=== PATIENT | female | born 1965 | race Caucasian/White ===

== ENCOUNTER 2018-10-18 13:23 | Outpatient (REF) | payer MEDICARE, MEDICAID, SELFPAY ==
[2018-10-18 20:55] LABS: ALT 35 U/L (12-78); AST 13 U/L (15-37); Albumin 3.7 g/dL (3.4-5.0); Alkaline Phosphatase 86 U/L (46-116); Anion Gap 10.2 mmol/L (3-11); BUN 8 mg/dL (7-18); Bilirubin, Total 0.2 mg/dL (0.2-1.0); CO2 26.8 mmol/L (21.0-32.0); CREATININE 0.74 mg/dL (0.55-1.02); Calcium 9.2 mg/dL (8.5-10.1); Chloride 104 mmol/L (98-107); Cholesterol 161 mg/dL (50-200); Glucose 85 mg/dL (70-100); HDL Cholesterol 61 mg/dL (40-60); LDL CHOLESTEROL 85 mg/dL (<100); Potassium 4.2 mmol/L (3.5-5.1); Sodium 141 mmol/L (136-145); TSH (W/Ref FT4) 1.61 uIU/mL (0.358-3.74); Total Protein 7.2 g/dL (6.4-8.2); Triglyceride 69 mg/dL (30-150)
== END 2018-10-18 13:43 ==
LOC: NCHCN 13:23
PROVIDERS: PCP Nurse Practitioner; Visit Provider Nurse Practitioner
DX: R53.83 Other fatigue (principal); R63.5 Abnormal weight gain; F32.9 Major depressive disorder, single episode, unspecified; E66.9 Obesity, unspecified; Z85.3 Personal history of malignant neoplasm of breast
CPT/HCPCS: 80053; 80061; 83721; 84443

== ENCOUNTER 2018-11-18 15:59 | Outpatient (CLI) | payer MEDICARE, MEDICAID, SELFPAY ==
--- NOTE | 2018-11-18 15:50 | DI.RAD_ITS ---
SYMPTOM/DIAGNOSIS: COUGH, DYSPNEA, R05,R06.00 PA AND LATERAL CHEST: Comparison is made with 05/29/15. The heart size is normal. Emphysematous changes are noted, greater in the upper lobes. There is mild bibasilar scarring. No superimposed infiltrate, effusion or pneumothorax is seen. IMPRESSION: Severe emphysematous changes. No acute abnormality.
[2018-11-18 16:24] LABS: D-Dimer 329 ng/mlFEU (<500)
== END 2018-11-18 16:19 ==
PROVIDERS: PCP Nurse Practitioner; Visit Provider Nurse Practitioner
DX: R05 Cough (principal); R06.00 Dyspnea, unspecified; J43.9 Emphysema, unspecified
CPT/HCPCS: 36415; 71046; 85379

== ENCOUNTER 2020-10-13 19:12 | Outpatient (REF) | payer MEDICARE, MEDICAID, SELFPAY ==
[2020-10-15 15:34] LABS: COVID-19 RT-PCR UVMMC Result Negative (Negative)
== END 2020-10-13 19:13 | disposition home or self-care (01) ==
LOC: NCHCN 19:12
PROVIDERS: PCP Nurse Practitioner; Visit Provider Nurse Practitioner Family
DX: J34.89 Other specified disorders of nose and nasal sinuses (principal)
CPT/HCPCS: U0003; U0005

== ENCOUNTER 2021-03-25 16:00 | Outpatient (REF) | payer OTHER, MEDICAID, SELFPAY ==
[2021-03-27 14:56] LABS: COVID-19 RT-PCR UVMMC Result Negative (Negative)
== END 2021-03-25 16:01 | disposition home or self-care (01) ==
LOC: NCHCN 16:00
PROVIDERS: PCP Nurse Practitioner; Visit Provider Nurse Practitioner Family
DX: Z20.822 Contact with and (suspected) exposure to COVID-19 (principal); R05 Cough
CPT/HCPCS: U0003

== ENCOUNTER 2021-05-02 01:23 | Outpatient (CLI) | payer OTHER, MEDICAID, SELFPAY | END 2021-05-02 01:24 | disposition home or self-care (01) | LOC: RT 01:23 | PROVIDERS: PCP Nurse Practitioner; Visit Provider Nurse Practitioner Family | DX: R69 Illness, unspecified (principal) ==

== ENCOUNTER 2023-03-08 17:21 | Outpatient (REF) | payer OTHER, MEDICAID, SELFPAY ==
[2023-03-13 03:28] LABS: Methylphenidate Negative ng/mL (Cutoff: 10); Ritalinic Acid 1593 ng/mL (Cutoff: 50)
[2023-03-14 03:02] LABS: 2-OH-Ethyl-Flurazepam Negative ng/mL (Cutoff: 10); 7-NH-Clonazepam 1537 ng/mL (Cutoff: 10); 7-NH-Flunitrazepam Negative ng/mL (Cutoff: 10); Alpha OH-Alprazolam Negative ng/mL (Cutoff: 10); Alpha-OH Midazolam Negative ng/mL (Cutoff: 10); Alpha-OH-Triazolam Negative ng/mL (Cutoff: 10); Alprazolam Negative ng/mL (Cutoff: 10); Benzodiazepines Interpretation Positive.; Chlordiazepoxide Negative ng/mL (Cutoff: 10); Clobazam Negative ng/mL (Cutoff: 10); Clonazepam 27 ng/mL (Cutoff: 10); Diazepam Negative ng/mL (Cutoff: 10); Flurazepam Negative ng/mL (Cutoff: 10); Lorazepam Negative ng/mL (Cutoff: 10); Midazolam Negative ng/mL (Cutoff: 10); N-Desmethylclobazam Negative ng/mL (Cutoff: 10); Prazepam Negative ng/mL (Cutoff: 10); Temazepam Negative ng/mL (Cutoff: 10); Triazolam Negative ng/mL (Cutoff: 10); Zolpidem Carboxylic acid Negative ng/mL (Cutoff: 10)
[2023-03-14 11:17] LABS: Benzoylecgonine 3536 ng/mL (Cutoff: 50); Cocaine 270 ng/mL (Cutoff: 50); Cocaine Interpretation Positive.
== END 2023-03-08 17:22 | disposition home or self-care (01) ==
LOC: NCHCN 17:21
PROVIDERS: PCP Nurse Practitioner; Visit Provider Nurse Practitioner Family
DX: Z51.81 Encounter for therapeutic drug level monitoring (principal); F41.8 Other specified anxiety disorders; F90.9 Attention-deficit hyperactivity disorder, unspecified type
CPT/HCPCS: 80360; 80346; 80353

== ENCOUNTER 2023-09-06 12:03 | Emergency (ER) | payer MEDICAID, SELFPAY ==
--- OUTSIDE RECORDS SUMMARY | 2023-09-06 12:09 | XMS_ITS | Continuity of Care Document ---
Author Name Unknown Organization [facility] Address [address] [place] [id number] Care Team Providers Care Strategic Partnership Representative Name Role Phone Physician, Non-Staff [facility] Primary Care Physici an Unavailable Encounter [facility] [id number] Date(s): 06/15/23 - 06/15/23 [facility] [address] [place] [phone] Encounter Diagnosis CAP (community acquired pneumonia)(Discharge Diagnosis) - 06/15/23 Discharge Disposition: Home Attending Physician: Parth Stone PA-C, HILLARY Admitting Physician: Parth Stone PA-C, HILLARY Allergies, Adverse Reactions, Alerts No Known Allergies Assessment and Plan Extracted from: Title:Throat Pain *ED Author:Parth Stone PA-C, HILLARY Date:06/15/23 History of Present Illness Patient presents to the walk-in clinic with complaint of sore throat and cough x2 weeks. Patient states she was treated in the emergency department 1 week ago for COPD exacerbation. She states she was given prescription for doxycycline and prednisone. She states that she does not feel any better at this time. She states that she has run out of albuterol MDI. She denies fever, chills, N/V/D, abdominal pain, chest pain, dyspnea, weakness, dizziness or syncope. Review of Systems Constitutional symptoms: No fever, no chills, no weakness. Skin symptoms: No rash, Eye symptoms: Vision unchanged. ENMT symptoms: No ear pain, no sore throat, no nasal congestion, no sinus pain. Respiratory symptoms: Shortness of breath, cough, No wheezing, , Sputum production: Yellow. Cardiovascular symptoms: No chest pain, no syncope. Gastrointestinal symptoms: No abdominal pain, no nausea, no vomiting, no diarrhea. Genitourinary symptoms: No dysuria, no hematuria. Musculoskeletal symptoms: No back pain, Neurologic symptoms: No headache, no dizziness, no altered level of consciousness, no numbness, no tingling, no weakness. Hematologic/Lymphatic symptoms: Bleeding tendency negative, bruising tendency negative. Health Status Allergies: Allergic Reactions (All) No Known Allergies. Medications: (Selected) Prescriptions Prescribed doxycycline hyclate 100 mg oral capsule: 100 mg = 1 cap(s), Oral, BID, for 10 day(s), 20 cap(s), 0 Refill(s) predniSONE 20 mg oral tablet: See Instructions, 2 tab(s) Oral Daily 7 day(s), then 1 tab q D x 7 days, 21 tab(s), 0 Refill(s) Documented Medications Documented Advair Diskus 250 mcg-50 mcg inhalation powder: 0 Refill(s) Combivent Respimat: 0 Refill(s) Singulair: 0 Refill(s) Ventolin: 0 Refill(s) albuterol 0.5% inhalation solution: 0 Refill(s) budesonide: 0 Refill(s) omeprazole: 0 Refill(s). Past Medical/ Family/ Social History Medical history: No active or resolved past medical history items have been selected or recorded.. Surgical history: No active procedure history items have been selected or recorded.. Family history: No family history items have been selected or recorded.. Social history: Social & Psychosocial History Social History Tobacco Current everyday tobacco user Tobacco Use:. 1+ pack per day. Electronic Cigarette/Vaping Electronic Cigarette Use: Never. Psychosocial History No active psychosocial history has been recorded . Problem list: Active Problems (1) Tobacco user . Physical Examination Vital Signs Vital Signs 06/15/2023 11:13 EDT Peripheral Pulse Rate 89 bpm Systolic Blood Pressure 172 mmHg HI Diastolic Blood Pressure 98 mmHg HI Mean Arterial Pressure, Cuff 123 mmHg >HHI SpO2 97 % . General: Alert, no acute distress. Skin: Warm, dry, pink. Head: Normocephalic, atraumatic. Neck: Supple, trachea midline, no tenderness. Eye: Pupils are equal, round and reactive to light, normal conjunctiva. Ears, nose, mouth and throat: Tympanic membranes clear, oral mucosa moist, no pharyngeal erythema or exudate. Cardiovascular: Regular rate and rhythm. Respiratory: Lungs are clear to auscultation, respirations are non-labored, breath sounds are equal, Symmetrical chest wall expansion. Gastrointestinal: Soft, Nontender, Non distended, Normal bowel sounds. Back: Normal range of motion. Musculoskeletal: Normal ROM. Neurological: Alert and oriented to person, place, time, and situation. Lymphatics: No lymphadenopathy. Psychiatric: Cooperative, appropriate mood & affect. Medical Decision Making Differential Diagnosis: Viral syndrome, upper respiratory infection. Rationale: Patient is nontoxic-appearing and in no apparent distress. She presented to the clinic with 1 week history of productive cough and sore throat. Patient was evaluated in the emergency department 1 week ago and treated for COPD exacerbation. Patient states that symptoms have not improved. Upon arrival, she is well- appearing and afebrile. She is oxygenating well on room air with no increased work of breathing. Lungs are CTA bilaterally. Patient has radiographic evidence of right lower lobe pneumonia. I have given her prescription for Augmentin, prednisone and albuterol MDI. I have advised patient to increase p.o. fluids and rest. Have discussed return precautions with patient. Patient will follow-up with her PCP and return to the clinic as needed if symptoms worsen.. Radiology results: Impression and Plan Plan Condition: Stable. Disposition: Discharged: Time 06/15/2023 12:24:00, to home. Prescriptions: Launch prescriptions Pharmacy: predniSONE 20 mg oral tablet (Prescribe): 40 mg = 2 tab(s), Oral, Daily, for 5 day(s), 10 tab(s), 0 Refill(s) amoxicillin-clavulanate 875 mg-125 mg oral tablet (Prescribe): 1 tab(s), Oral, q12hr, for 7 day(s), 14 tab(s), 0 Refill(s) ProAir HFA 90 mcg/inh inhalation aerosol (Prescribe): 2 puff(s), INH, q4hr, for 30 day(s), PRN: for wheezing, 8.5 gm, 0 Refill(s). Patient was given the following educational materials: Community-Acquired Pneumonia, Adult, Yzko-jj-Sios, Community-Acquired Pneumonia, Adult, Tlvx-us-Natw. Follow up with: Follow up with primary care provider You have been evaluated in the walk-in clinic for community-acquired pneumonia. We have given you prescription for Augmentin, prednisone and albuterol inhaler. Use as prescribed. Drink plenty of fluids and rest. Follow-up with your PCP. If your symptoms worsen, return to the clinic as needed.. Counseled: Patient, Regarding diagnosis, Regarding diagnostic results, Regarding treatment plan, Regarding prescription, Patient indicated understanding of instructions. Functional Status 06/15/23 Recent Travel History No recent travel Family Member Travel History No recent t nataliiael COVID-19 Screening None Medications Advair Diskus 250 mcg-50 mcg inhalation powder 0 Refill(s) Start Date: 06/08/23 Status: Ordered albuterol 0.5% inhalation solution 0 Refill(s) Start Date: 06/08/23 Status: Ordered amoxicillin-clavulanate 875 mg-125 mg oral tablet 1 tab(s), Oral, q12hr, # 14 tab(s), 0 Refill(s), Pharmacy: [id number], 1 tab(s) Oral q12hr,x7day(s), 170, cm, 06/15/23 11:13:00 EDT, Height/Length Dosing, 71.4, kg, 06/15/23 11:13:00 EDT, Weight Dosing Start Date: 06/15/23 Stop Date: 06/22/23 Status: Ordered budesonide 0 Refill(s) Start Date: 06/08/23 Status: Ordered Combivent Respimat 0 Refill(s) Start Date: 06/08/23 Status: Ordered doxycycline hyclate 100 mg oral capsule 100 mg = 1 cap(s), Oral, BID, X 10 day(s), # 20 cap(s), 0 Refill(s), 06/18/23 4:24:00 AM EDT, Pharmacy: [facility] #[id number], 1 cap(s) Oral BID,x10 day(s), 170, cm, 06/08/23 1:53:00 EDT, Height/Length Dosing, 71.4, kg, 06/08/23 1:53:00 EDT, Weight Dosing Start Date: 06/08/23 Stop Date: 06/18/23 Status: Ordered omeprazole 0 Refill(s) Start Date: 06/08/23 Status: Ordered predniSONE 20 mg oral tablet 40 mg = 2 tab(s), Oral, Daily, # 10 tab(s), 0 Refill(s), Pharmacy: [id number], 2 tab(s) Oral Daily,x5 day(s), 170, cm, 06/15/23 11:13:00 EDT, Height/Length Dosing, 71.4, kg, 06/15/23 11:13:00 EDT, Weight Dosing Start Date: 06/15/23 Stop Date: 06/20/23 Status: Ordered predniSONE 20 mg oral tablet See Instructions, 2 tab(s) Oral Daily 7 day(s), then 1 tab q D x 7 days, # 21 tab(s), 0 Refill(s), 06/22/23 12:00:00 AM EDT, Pharmacy: [facility] #[id number], 2 tab(s) Oral Daily 7 day(s), then 1 tab q D x 7 days, 170, cm, 06/08/23 1:53:00 EDT, Height/Length Dosing, 71.4, kg, 06/08/23 1:53:00 EDT, Weight Dosing Start Date: 06/08/23 Stop Date: 06/22/23 Status: Ordered ProAir HFA 90 mcg/inh inhalation aerosol = 2 puff(s), INH, q4hr, PRN PRN for wheezing, # 8.5 gm, 0 Refill(s), Pharmacy: [id number], 2 puff(s) INH q4hr,x30 day(s),PRN:for wheezing, 170, cm, 06/15/23 11:13:00 EDT, Height/Length Dosing, 71.4, kg, 06/15/23 11:13:00 EDT, Weight Dosing Start Date: 06/15/23 Stop Date: 07/15/23 Status: Ordered Singulair 0 Refill(s) Start Date: 06/08/23 Status: Ordered Ventolin 0 Refill(s) Start Date: 06/08/23 Status: Ordered Vital Signs Most recent to oldest [Reference Range]: 1 Peripheral Pulse Rate [60-100 bpm] 89 bp m (06/15/23 11:13 AM) Blood Pressure [90-140/60-90 mmHg] 172/9 8mmHg *HI* (06/15/23 11:13 AM) Mean Arterial Pressure, Cuff [70-110 mmH g] 123 mmHg *>HHI* (06/15/23 11:13 AM) SpO2 [92-100 %] 97 % (06/15/23:13 AM) Height 170 cm (06/15/2313 AM) Height/Length Measured (inches) 66.9 in (06/15/23:13 AM) Height/Length Dosing 170 cm (06/15/2313 AM) Weight 71.4 kg (06/15/2313 AM) Weight Measured (lbs) 157.41 lb (06/15/2313 AM) Weight Dosing 71.4 kg (06/15/23:13 AM) BSA Measured 1.84 m2 (06/15/23 AM) Body Mass Index 24.71 kg/m2 (06/15/2313 AM) Social History Social History Type Response Tobacco Current everyday tob acco user Tobacco Use:. 1+ pack per day. Sex Hospital Discharge Instructions Patient Education 06/15/2023 12:28:42 Community-Acquired Pneumonia, Adult, [id number]-op-Mvtc Community-Acquired Pneumonia, Adult Pneumonia is an infection of the lungs. It causes irritation and swelling in the airways of the lungs. Mucus and fluid may also build up inside the airways. This may cause coughing and trouble breathing. One type of pneumonia can happen while you are in a hospital. A different type can happen when you are not in a hospital (community-acquired pneumonia). What are the causes? This condition is caused by germs (viruses, bacteria, or fungi). Some types of germs can spread from person to person. Pneumonia is not thought to spread from person to person. What increases the risk? You have a long-term (chronic) disease, such as: ??? Disease of the lungs. This may be chronic obstructive pulmonary disease (COPD) or asthma. ??? Heart failure. ??? Cystic fibrosis. ??? Diabetes. ??? Kidney disease. ??? Sickle cell disease. ??? HIV. ??? You have other health problems, such as: ??? Your body's defense system (immune system) is weak. ??? A condition that may cause you to breathe in fluids from your mouth and nose. ??? You had your spleen taken out. ??? You do not take good care of your teeth and mouth (poor dental hygiene). ??? You use or have used tobacco products. ??? You go where the germs that cause this illness are common. ??? You are older than 65 years of age. What are the signs or symptoms? A cough. ??? A fever. ??? Sweating or chills. ??? Chest pain, often when you breathe deeply or cough. ??? Breathing problems, such as: ??? Fast breathing. ??? Trouble breathing. ??? Shortness of breath. ??? Feeling tired (fatigued). ??? Muscle aches. How is this treated? Treatment for this condition depends on many things, such as: ??? The cause of your illness. ??? Your medicines. ??? Your other health problems. Most adults can be treated at home. Sometimes, treatment must happen in a hospital. ??? Treatment may include medicines to kill germs. ??? Medicines may depend on which germ caused your illness. Very bad pneumonia is rare. If you get it, you may: ??? Have a machine to help you breathe. ??? Have fluid taken away from around your lungs. Follow these instructions at home: Medicines ??? Take qtum-wva-mtcrypk and prescription medicines only as told by your doctor. ??? Take cough medicine only if you are losing sleep. Cough medicine can keep your body from takingmucus away from your lungs. ??? If you were prescribed antibiotics, take them as told by your doctor. Do not stop taking them even if you start to feel better. Lifestyle ??? Do not smoke or use any products that contain nicotine or tobacco. If you need help quitting, ask your doctor. ??? Do not drink alcohol. ??? Eat a healthy diet. This includes a lot of vegetables, fruits, whole grains, low-fat dairy products, and low-fat (lean) protein. General instructions ??? Rest a lot. Sleep for at least 8 hours each night. ??? Sleep with your head and neck raised. Put a few pillows under your head or sleep in a recliningchair. ??? Return to your normal activities as told by your doctor. Ask your doctor what activities are safe for you. ??? Drink enough fluid to keep your pee (urine) pale yellow. ??? If your throat is sore, gargle with a mixture of salt and water 3???4 times a day or as needed.To make salt water, completely dissolve ?1 tsp (3???6 g) of salt in 1 cup (237 mL) of warm water. ??? Keep all follow-up visits. How is this prevented? Getting the pneumonia shot (vaccine). These shots have different types and schedules. Ask your doctor what works best for you. Think about getting this shot if: ??? You are older than 65 years of age. ??? You are 19???65 years of age and: ??? You are being treated for cancer. ??? You have long-term lung disease. ??? You have other problems that affect your body's defense system. Ask your doctor if you have oneof these. ??? Getting your flu shot every year. Ask your doctor which type of shot is best for you. ??? Going to the dentist as often as told. ??? Washing your hands often with soap and water for at least 20 seconds. If you cannot use soap and water, use hand line maintenance supervisor. Contact a doctor if: ??? You have a fever. ??? You lose sleep because your cough medicine does not help. Get help right away if: ??? You are short of breath and this gets worse. ??? You have more chest pain. ??? Your sickness gets worse. This is very serious if: ??? You are an older adult. ??? Your body's defense system is weak. ??? You cough up blood. These symptoms may be an emergency. Get help right away. Call 911. ??? Do not wait to see if the symptoms will go away. ??? Do not drive yourself to the hospital. Summary ??? Pneumonia is an infection of the lungs. ??? Community-acquired pneumonia affects people who have not been in the hospital. Certain germs can cause this infection. ??? This condition may be treated with medicines that kill germs. ??? For very bad pneumonia, you may need a hospital stay and treatment to help with breathing. This information is not intended to replace advice given to you by your health care provider. Make sure you discuss any questions you have with your health care provider. Document Revised: 10/11/2022 Document Reviewed: 10/11/2022 [employer] Patient Education ?? 2022 [employer]. Follow Up Care 06/15/2023 11:02:54 With:Follow up with primary care provider Address:Unknown When: Unknown Comments:You have been evaluated in the walk-in clinic for community-acquired pneumonia. We have given you prescription for Augmentin, prednisone and albuterol inhaler. Use as prescribed. Drink plenty of fluids and rest. Follow-up with your PCP. If your symptoms worsen, return to the clinic as needed. Primary care Note * Parth Stone PA-C, ANGELA-EM: MODIFY, SIGN, VERIFY, PERFORM, MODIFY Event Display: Office/Clinic Note Authored Date: Patient: JUSTINO ZABALA Age: 58 years Sex: Female : 1965 Associated Diagnoses: None Author: Parth Stone PA-C, ANGELA-EM Basic Information Time seen: Time Seen (Tracking) No qualifying data available. . History source: Patient. Arrival mode: Private vehicle. History limitation: None. Additional information: Chief Complaint from Nursing Triage Note 06/15/2023 11:13 EDT Chief Complaint troubles swollowing . History of Present Illness Patient presents to the walk-in clinic with complaint of sore throat and cough x2 weeks. Patient states she was treated in the emergency department 1 week ago for COPD exacerbation. She states she was given prescription for doxycycline and prednisone. She states that she does not feel any better atthis time. She states that she has run out of albuterol MDI. She denies fever, chills, N/V/D, abdomi nal pain, chest pain, dyspnea, weakness, dizziness or syncope. Review of Systems Constitutional symptoms: No fever, no chills, no weakness. Skin symptoms: No rash, Eye symptoms: Vision unchanged. ENMT symptoms: No ear pain, no sore throat, no nasal congestion, no sinus pain. Respiratory symptoms: Shortness of breath, cough, No wheezing, , Sputum production: Yellow. Cardiovascular symptoms: No chest pain, no syncope. Gastrointestinal symptoms: No abdominal pain, no nausea, no vomiting, no diarrhea. Genitourinary symptoms: No dysuria, no hematuria. Musculoskeletal symptoms: No back pain, Neurologic symptoms: No headache, no dizziness, no altered level of consciousness, no numbness, no tingling, no weakness. Hematologic/Lymphatic symptoms: Bleeding tendency negative, bruising tendency negative. Health Status Allergies: Allergic Reactions (All) No Known Allergies. Medications: (Selected) Prescriptions Prescribed doxycycline hyclate 100 mg oral capsule: 100 mg = 1 cap(s), Oral, BID, for 10 day(s), 20 cap(s), 0 Refill(s) predniSONE 20 mg oral tablet: See Instructions, 2 tab(s) Oral Daily 7 day(s), then 1 tab q D x 7 days, 21 tab(s), 0 Refill(s) Documented Medications Documented Advair Diskus 250 mcg-50 mcg inhalation powder: 0 Refill(s) Combivent Respimat: 0 Refill(s) Singulair: 0 Refill(s) Ventolin: 0 Refill(s) albuterol 0.5% inhalation solution: 0 Refill(s) budesonide: 0 Refill(s) omeprazole: 0 Refill(s). Past Medical/ Family/ Social History Medical history: No active or resolved past medical history items have been selected or recorded.. Surgical history: No active procedure history items have been selected or recorded.. Family history: No family history items have been selected or recorded.. Social history: Social & Psychosocial History Social History Tobacco Current everyday tobacco user Tobacco Use:. 1+ pack per day. Electronic Cigarette/Vaping Electronic Cigarette Use: Never. Psychosocial History No active psychosocial history has been recorded . Problem list: Active Problems (1) Tobacco user . Physical Examination Vital Signs Vital Signs 06/15/2023 11:13 EDT Peripheral Pulse Rate 89 bpm Systolic Blood Pressure 172 mmHg HI Diastolic Blood Pressure 98 mmHg HI Mean Arterial Pressure, Cuff 123 mmHg >HHI SpO2 97 % . General: Alert, no acute distress. Skin: Warm, dry, pink. Head: Normocephalic, atraumatic. Neck: Supple, trachea midline, no tenderness. Eye: Pupils are equal, round and reactive to light, normal conjunctiva. Ears, nose, mouth and throat: Tympanic membranes clear, oral mucosa moist, no pharyngeal erythema or exudate. Cardiovascular: Regular rate and rhythm. Respiratory: Lungs are clear to auscultation, respirations are non-labored, breath sounds are equal, Symmetrical chest wall expansion. Gastrointestinal: Soft, Nontender, Non distended, Normal bowel sounds. Back: Normal range of motion. Musculoskeletal: Normal ROM. Neurological: Alert and oriented to person, place, time, and situation. Lymphatics: No lymphadenopathy. Psychiatric: Cooperative, appropriate mood & affect. Medical Decision Making Differential Diagnosis: Viral syndrome, upper respiratory infection. Rationale: Patient is nontoxic-appearing and in no apparent distress. She presented to the clinic with 1 week history of productive cough and sore throat. Patient was evaluated in the emergency department 1 week ago and treated for COPD exacerbation. Patient states that symptoms have not improved. Upon arrival, she is well-appearing and afebrile. She is oxygenating well on room air with no increased work of breathing. Lungs are CTA bilaterally. Patient has radiographic evidence of right lower lobe pneumonia. I have given her prescription for Augmentin, prednisone and albuterol MDI. I have advised patient to increase p.o. fluids and rest. Have discussed return precautions with patient. Patient will follow-up with her PCP and return to the clinic as needed if symptoms worsen.. Radiology results: Impression and Plan Plan Condition: Stable. Disposition: Discharged: Time 06/15/2023 12:24:00, to home. Prescriptions: Launch prescriptions Pharmacy: predniSONE 20 mg oral tablet (Prescribe): 40 mg = 2 tab(s), Oral, Daily, for 5 day(s), 10 tab(s), 0Refill(s) amoxicillin-clavulanate 875 mg-125 mg oral tablet (Prescribe): 1 tab(s), Oral, q12hr, for 7 day(s),14 tab(s), 0 Refill(s) ProAir HFA 90 mcg/inh inhalation aerosol (Prescribe): 2 puff(s), INH, q4hr, for 30 day(s), PRN: forwheezing, 8.5 gm, 0 Refill(s). Patient was given the following educational materials: Community-Acquired Pneumonia, Adult, Zrlg-kr-Uqae, Community-Acquired Pneumonia, Adult, Xkju-at-Eqmo. Follow up with: Follow up with primary care provider You have been evaluated in the walk-in clinic for community-acquired pneumonia. We have given you prescription for Augmentin, prednisone and albuterol inhaler. Use as prescribed. Drink plenty of fluids and rest. Follow-up with your PCP. If your symptoms worsen, return to the clinic as needed.. Counseled: Patient, Regarding diagnosis, Regarding diagnostic results, Regarding treatment plan, Regarding prescription, Patient indicated understanding of instructions. [Electronically Signed on: 06/15/2023 12:30 EDT] Parth Stone PA-C, ANGELA-MYNOR Clint Hector MD, FACEP [Verified on: 06/15/2023 12:30 EDT] Parth Stone PA-C, CAGustavo-EM Patient Care team information Care Team Personnel Name: Physician, Non-Staff [facility] Position: [facility] No Access Member Role: Informed Provider Care Team Related Persons Name: MATILDA VEGA Name: CLINT HUTCHINSON
--- OUTSIDE RECORDS SUMMARY | 2023-09-06 12:09 | XMS_ITS | Continuity of Care Document ---
Author Name Unknown Organization [facility] Address [address] [place] [address] Encounter LTTL_AR FIN NBR [id number] Date(s): 06/21/23 - 06/21/23 [facility] [address] [place] [address]- Encounter Diagnosis Abdominal pain(Discharge Diagnosis) - 06/21/23 Right upper quadrant pain(Final) - Nicotine dependence, other tobacco product, uncomplicated(Final) - Discharge Disposition: Home or Self Care Attending Physician: Owen Narayan MD Admitting Physician: Owen Narayan MD Allergies, Adverse Reactions, Alerts Substance Reaction Severity Status aspirin Mild Active Medications Advair HFA 230 mcg-21 mcg/inh inhalation aerosol 0 Refill(s) Start Date: 06/17/23 Status: Ordered amoxicillin-clavulanate 875 mg-125 mg oral tablet 0 Refill(s) Start Date: 06/17/23 Status: Ordered benzonatate 100 mg oral capsule TAKE 1-2 CAPSULES BY MOUTH THREE TIMES A DAY NEEDED FOR COUGH Start Date: 06/17/23 Status: Ordered Combivent Respimat CFC free 20 mcg-100 mcg/inh inhalation aerosol INHALE ONE PUFF BY MOUTH FOUR TIMES A DAY Start Date: 06/17/23 Status: Ordered doxycycline hyclate 100 mg oral capsule take 1 capsule by mouth twice a day for 10 days Start Date: 06/17/23 Status: Ordered methylphenidate 10 mg oral tablet TAKE ONE AND ONE-HALF TABLETS BY MOUTH THREE TIMES A DAY Start Date: 06/17/23 Status: Ordered montelukast 10 mg oral tablet TAKE ONE TABLET BY MOUTH EVERY DAY Start Date: 06/17/23 Status: Ordered omeprazole 40 mg oral delayed release capsule TAKE ONE CAPSULE BY MOUTH EVERY DAY Start Date: 06/17/23 Status: Ordered predniSONE 20 mg oral tablet 0 Refill(s) Start Date: 06/17/23 Status: Ordered sucralfate 1 g/10 mL oral suspension SHAKE LIQUID AND TAKE 10ML BY MOUTH FOUR TIMES A DAY 1 HOUR BEFORE MEALS AND AT BEDTIME Start Date: 06/17/23 Status: Ordered Ventolin HFA 90 mcg/inh inhalation aerosol INHALE ONE TO TWO PUFFS BY MOUTH EVERY 4 HOURS NEEDED FOR SHORTNESS OF BREATH OR WHEEZING Start Date: 06/17/23 Status: Ordered Mental Status 06/21/23 Eye Opening Response Burns Spontaneous ly Best Verbal Response Burns Oriented Best Motor Response Burns Obeys comman ds Burns Coma Score 15 Results Laboratory List Name Date Automated Diff 06/21/23 Alcohol Lvl 06/21/23 CBC w/ Diff 06/21/23 Comprehensive Metabolic Panel 06/21/23 Lipase Level 06/21/23 Magnesium Level 06/21/23 Urinalysis with Micro if Indicated and C ulture if Indicated 06/21/23 Most recent to oldest [Reference Range]: 1 WBC [4.8-10.8 K/mcL] 10.5 K/mcL (06/21/23 10:57 AM) RBC [4.20-5.40 Million/mcL] 4.91 Million /mcL (06/21/23 10:57 AM) Neutro Auto [42.2-75.2 %] 85.3 % *HI* (06/21/23 10:57 AM) Lymph Auto [20.5-51.1 %] 9.4 % *LOW* (06/21/23 10:57 AM) [place] Auto [1.7-9.3 %] 2.1 % (06/21/23 10:57 AM) Basophil Auto [0.0-0.8 %] 0.9 % *HI* (06/21/23 10:57 AM) BUN [8-26 mg/dL] 23 mg/dL (06/21/23 10:57 AM) UA Color LIGHT YELL *NA* (06/21/23 10:54 AM) Glucose Level [74-106 mg/dL] 116 mg/dL *HI* (06/21/23 10:57 AM) Potassium Level [3.5-5.1 mmol/L] 4.0 mmo l/L (06/21/23 10:57 AM) Baso Absolute [0.0-0.2 K/mcL] 0.1 K/mcL (06/21/23 10:57 AM) MCV [81.0-99.0 fL] 90.6 fL (06/21/23 10:57 AM) UA Urobilinogen [0.2] 0.2 (06/21/23 10:54 AM) UA Bili [Negative] Negative (06/21/23 10:54 AM) UA Ketones [Negative] Negative (06/21/23 10:54 AM) AST [15-41 IntlUnit/L] 16 IntlUnit/L (06/21/23 10:57 AM) ALT [14-54 IntlUnit/L] 19 IntlUnit/L (06/21/23 10:57 AM) MCHC [32.0-37.0 g/dL] 31.5 g/dL *LOW* (06/21/23 10:57 AM) Osmolality [275-295 mOsm/kg] 284 mOsm/kg (06/21/23 10:57 AM) Sodium Level [134-143 mmol/L] 140 mmol/L (06/21/23 10:57 AM) UA Leuk Est [Negative] Negative (06/21/23 10:54 AM) Lymph Absolute [1.2-3.4 K/mcL] 1.0 K/mcL *LOW* (06/21/23 10:57 AM) UA Nitrite [Negative] Negative (06/21/23 10:54 AM) UA Glucose [Negative] Negative (06/21/23 10:54 AM) Hct [37.0-47.0 %] 44.5 % (06/21/23 10:57 AM) Lipase Level [18-51 unit/L] 31 unit/L 1 (06/21/23 10:57 AM) Calcium Level [8.9-10.3 mg/dL] 9.3 mg/dL (06/21/23 10:57 AM) [place] Absolute [0.1-0.6 K/mcL] 0.2 K/mcL (06/21/23 10:57 AM) Albumin Level [3.5-5.0 g/dL] 4.1 g/dL (06/21/23 10:57 AM) Protein Total [6.5-8.1 g/dL] 7.2 g/dL (06/21/23 10:57 AM) UA Protein [Negative] Negative (06/21/23 10:54 AM) MCH [27.0-31.0 pg] 28.5 pg (06/21/23 10:57 AM) Magnesium Level [1.8-2.5 mg/dL] 2.2 mg/d L (06/21/23 10:57 AM) Neutro Absolute [1.4-6.5 K/mcL] 9.0 K/mc L *HI* (06/21/23 10:57 AM) Bilirubin Total [0.2-1.2 mg/dL] 0.7 mg/d L (06/21/23 10:57 AM) Hgb [12.0-16.0 g/dL] 14.0 g/dL (06/21/23 10:57 AM) Alk Phos [38-130 IntlUnit/L] 54 IntlUnit /L (06/21/23 10:57 AM) UA Blood [Negative] Negative (06/21/23 10:54 AM) MPV [7.4-10.4 fL] 10.7 fL *HI* (06/21/23 10:57 AM) Ethanol Level [0.00-0.08 g/dL] See comme nt g/dL 2 *NA* (06/21/23 10:57 AM) UA Spec Grav [1.001-1.030] <=1.005 *NA* (06/21/23 10:54 AM) Platelets [130-400 K/mcL] 254 K/mcL (06/21/23 10:57 AM) CO2 [22-32 mmol/L] 25 mmol/L (06/21/23 10:57 AM) Eos Absolute [0.0-0.2 K/mcL] 0.2 K/mcL (06/21/23 10:57 AM) UA pH [5.00-9.00] 5.50 (06/21/23 10:54 AM) UA Appear [Clear] Clear (06/21/23 10:54 AM) Chloride Level [98-111 mmol/L] 104 mmol/ L (06/21/23 10:57 AM) RDW-CV [11.5-14.5 %] 13.9 % (06/21/23 10:57 AM) A/G Ratio [1.0-2.5 g/dL] 1.3 g/dL (06/21/23 10:57 AM) BUN/Creat Ratio [8.0-20.0] 34.8 *HI* (06/21/23 10:57 AM) Globulin [2.3-3.5 g/dL] 3.1 g/dL (06/21/23 10:57 AM) Imm Gran Absolute [0.00-0.02 K/mcL] 0.04 K/mcL *HI* (06/21/23 10:57 AM) Imm Gran Auto [0.0-0.5 %] 0.4 % (06/21/23 10:57 AM) Slide Review Not Indicated (06/21/23 10:57 AM) Urine Srce Clean Catch (06/21/23 10:54 AM) Creatinine Level [0.44-1.00 mg/dL] 0.66 mg/dL (06/21/23 10:57 AM) Anion Gap [3.0-12.0] 11.0 (06/21/23 10:57 AM) Eos, Auto [0.00-3.00 %] 1.90 % (06/21/23 10:57 AM) Instr Ethanol Lvl [<=5 mg/dL] <5 mg/dL (06/21/23 10:57 AM) eGFR CKD-EPI [>=60 mL/min/1.73 m2] 102 m L/min/1.73 m2 (06/21/23 10:57 AM) 1Interpretive Data: K-zillys-b-benzoquinone imine (meabolite of Acetaminophen) will generate erroneously low lipase results in samples for patients that have taken toxic doses of acetaminophen. 2Result Comment: Unable to report ethanol level due to measured ethanol being BELOW instrument linearity. Radiology Reports * Exam Date Time Procedure Performing Provider Status 06/21/23 12:34 PM US Abdomen Limited DomainUser, Gener ated; Auth (Verified) Notes: (US Abdomen Limited) Reason For Exam: Abdominal pain, right upper quadrant US Abdomen Limited EXAM DESCRIPTION: US Abdomen Limited 06/21/2023 INDICATION: ABDOMINAL PAIN, RIGHT UPPER QUADRANT TECHNIQUE: Grayscale and color Doppler ultrasound examination of the right upper quadrant region of the abdomen. COMPARISON: None FINDINGS: Liver measures 16.6 cm in maximum dimension. Normal homogeneous hepatic echotexture with no focal hepatic lesion identified. No hepatic surface nodularity or findings to suggest hepatic steatosis. The main portal vein is patent with normal flow direction. No ascites in right upper quadrant Pancreas appears unremarkable No cholelithiasis, gallbladder wall thickening or pericholecystic fluid accumulation. No biliary dilatation with common bile duct diameter of 5 mm. Positive sonographic Karimi sign Right kidney measures 13.1 cm in maximum dimension. No focal right renal mass, hydronephrosis or perinephric fluid collection. IMPRESSION: No cholelithiasis or biliary dilatation Positive sonographic Karimi sign JOB #: [id number] Final Signed by: Cecil Patel MD Signed (Electronic Signature): 06/21/2023 12:41 pm Vital Signs Most recent to oldest [Reference Range]: 1 2 Temperature Temporal Artery [36-38 Deg C ] 36.2 Deg C (06/21/23 10:41 AM) Peripheral Pulse Rate [60-100 bpm] 95 bp m (06/21/23 12:54 PM) 93 bpm (06/21/23 10:41 AM) Respiratory Rate [12-24 br/min] 16 br/mi n (06/21/23 10:41 AM) Blood Pressure [90-140/60-90 mmHg] 140/8 1mmHg (06/21/23 12:54 PM) 164/98mmHg *HI* (06/21/23 10:41 AM) Mean Arterial Pressure, Cuff [65-140 mmHg] 101 mmHg (06/21/23 12:54 PM) 120 mmHg (06/21/23 10:41 AM) Mean Arterial Pressure Cuff 99 mmHg (06/21/23 12:54 PM) Weight Dosing 64.00 kg (06/21/23 11:02 AM) Weight Estimated 64.00 kg (06/21/23 10:41 AM) Height/Length Dosing 170.000 cm (06/21/23 11:02 AM) Height/Length Estimated 170.000 cm (06/21/23 10:41 AM) Social History Social History Type Response Tobacco Current everyday tob acco user Tobacco Use:. Sex Hospital Discharge Instructions Patient Education 06/21/2023 12:31:10 Abdominal Pain, Adult Abdominal Pain, Adult Pain in the abdomen (abdominal pain) can be caused by many things. Often, abdominal pain is not serious and it gets better with no treatment or by being treated at home. However, sometimes abdominal pain is serious. Your health care provider will ask questions about your medical history and do a physical exam to try to determine the cause of your abdominal pain. Follow these instructions at home: Medicines ??? Take [id number] and prescription medicines only as told by your health care provider. ??? Do not take a laxative unless told by your health care provider. General instructions ??? Watch your condition for any changes. ??? Drink enough fluid to keep your urine pale yellow. ??? Keep all follow-up visits as told by your health care provider. This is important. Contact a health care provider if: ??? Your abdominal pain changes or gets worse. ??? You are not hungry or you lose weight without trying. ??? You are constipated or have diarrhea for more than 2???3 days. ??? You have pain when you urinate or have a bowel movement. ??? Your abdominal pain wakes you up at night. ??? Your pain gets worse with meals, after eating, or with certain foods. ??? You are vomiting and cannot keep anything down. ??? You have a fever. ??? You have blood in your urine. Get help right away if: ??? Your pain does not go away as soon as your health care provider told you to expect. ??? You cannot stop vomiting. ??? Your pain is only in areas of the abdomen, such as the right side or the left lower portion of the abdomen. Pain on the right side could be caused by appendicitis. ??? You have bloody or black stools, or stools that look like tar. ??? You have severe pain, cramping, or bloating in your abdomen. ??? You have signs of dehydration, such as: ??? Dark urine, very little urine, or no urine. ??? Cracked lips. ??? Dry mouth. ??? Sunken eyes. ??? Sleepiness. ??? Weakness. ??? You have trouble breathing or chest pain. Summary ??? Often, abdominal pain is not serious and it gets better with no treatment or by being treated at home. However, sometimes abdominal pain is serious. ??? Watch your condition for any changes. ??? Take ufpu-[id number] and prescription medicines only as told by your health care provider. ??? Contact a health care provider if your abdominal pain changes or gets worse. ??? Get help right away if you have severe pain, cramping, or bloating in your abdomen. This information is not intended to replace advice given to you by your health care provider. Make sure you discuss any questions you have with your health care provider. Document Revised: 10/01/2020 Document Reviewed: 12/22/2019 [employer] Patient Education ?? 2022 [employer]. Discharge instructions * Event Display: Discharge Instructions Physician Emergency department Note * Jessica Sapp, WASH DRILLER HELPER: PERFORM Event Display: ED Note Physician Authored Date: [id number] SAGRARIO JUSTINO R :1965 Age:58 years Sex:Female Visit Date:06/21/2023 Basic Information Time Seen: Jessica Sapp APRN / 06/21/2023 10:49 Chief Complaint Pt states she has had abd pain that moves around for about a month. Pt has hx of pneumonia dx 7 days ago. History Of Present Illness: Patient is a 58-year-old female who presents emergency department today with a chief complaint??of upper quadrant??abdominal pain. ??She reports that she has been evaluated??previously for similar symptoms, states that she has not??had any an improvement. ??She has been utilizing MiraLAX and stool s ofteners??without good effect of pain. ??She states??she has electively lost approximately 100 pounds over the last year??through diet modification.?? She recently has been on doxycycline and??Augmentin for pneumonia. ??She states that she has approximately 2 days left of these antibiotic courses. ??She reports that she continues to have mild cough, she is 1 pack a day smoker,??and??denies any worsening shortness of breath. ??She states that she has had 1 episode of vomiting over the last few days, states that her pain??initially is located in the right upper quadrant??and does migrate towards the left upper quadrant at times and into the back. Review of Systems: SEE HPI Physical Exam Vitals & Measurements T:??36.2?C ??(Temporal Artery)?? HR:??95??(Peripheral)?? RR:??16?? BP:??140/81?? SpO2:??92%?? HT:??170.000??cm?? WT:??64.00??kg??(Estimated)?? Pain Score:??7?? O2 Therapy:??Room air?? General: Well-appearing, no acute distress, alert and oriented x3. Skin: No concerning lesions in examined areas. Head: Normal cephalic without trauma or injury. Neck: Supple, nontender, normal range of motion Eye: Pupils reactive. ??Conjunctiva clear. Sclera nonicteric. ??No swelling, obvious foreign bodies. ??Extraocular movement intact. ENT?Sinuses: Nontender to percussion. ??Oropharynx: Normal external, mucosal without mass, lesions, ulcerations. No erythema, exudate, lesions, uvula midline. Cardiovascular: Regular rate and rhythm. ??No murmur, rubs, or gallops. Respiratory: Clear to auscultation bilaterally. ??No wheezes, rales, rhonchi. Chest: No deformity. ??Nontender, normal inspiration and expiration. Abdomen: Soft,distended, mild tenderness.?No peritoneal signs, rigidity, guarding. ??No CVA tenderness. Medical Decision Making: Patient was evaluated emergency department for continued abdominal??discomfort.?? Vital signs were obtained and reviewed, patient hypertensive 160s over 90s, nontachycardic and afebrile.?? Labs were obtained today which did not reflect any??changes since previous??readings, white count is normal H&H is stable, metabolic function is within normal limits, BUN is 23??with a creatinine of 0.66. ??Her alcohol is negative, urinalysis is negative.?? Given the right upper quadrant tenderness on exam I feel an ultrasound??was appropriate although she did have a CT that was negative a few days ago.?Ultrasound was negative for any acute process. ??She did receive a GI cocktail with minimal??effect. ??We did discuss??continued discomfort being related to gas or constipation. ??She had attempted to reach out to her primary care??to refer to gastroenterology but has been unsuccessful. ??We discussed continuing the MiraLAX or stool softeners??to improve daily bowel function, incorporating??high-fiber and nutritionally dense fruits and vegetables, increasing fluid.?? Patient is happy with this plan and I will send referral to gastroenterology. ??She states that she would prefer to??seek specialty care here at our hospital. Procedure No Qualifying Data Assessment/Plan 1.??Abdominal pain??R10.9 Orders: Normal Saline Flush, 10 mL, IV Flush, Injection, As Directed, PRN body liner, First Dose: 06/21/23 11:38:00 EDT, Routine Sodium Chloride 0.9% 1,000 mL, Total Volume (mL): 1,000, 1,000 mL, Soln-IV, IV Bolus, 999 mL/hr, Start Date: 06/21/23 11:38:00 EDT, 64 kg, Populate Charting Weight From Order, 1.74, m2 Discharge Patient, 06/21/23 13:33:00 EDT Patient Education Abdominal Pain, Adult Medication Reconciliation Unchanged albuterol (Ventolin HFA 90 mcg/inh inhalation aerosol)INHALE ONE TO TWO PUFFS BY MOUTH EVERY 4 HOURS NEEDED FOR SHORTNESS OF BREATH OR WHEEZING. ?? amoxicillin-clavulanate (amoxicillin-clavulanate 875 mg-125 mg oral tablet) ?? benzonatate (benzonatate 100 mg oral capsule)TAKE 1-2 CAPSULES BY MOUTH THREE TIMES A DAY NEEDEDFOR COUGH. ?? doxycycline (doxycycline hyclate 100 mg oral capsule)take 1 capsule by mouth twice a day for 10 days. ?? fluticasone-salmeterol (Advair HFA 230 mcg-21 mcg/inh inhalation aerosol) ?? ipratropium-albuterol (Combivent Respimat CFC free 20 mcg-100 mcg/inh inhalation aerosol)INHALE ONEPUFF BY MOUTH FOUR TIMES A DAY. ?? methylphenidate (methylphenidate 10 mg oral tablet)TAKE ONE AND ONE-HALF TABLETS BY MOUTH THREE TIMES A DAY. ?? montelukast (montelukast 10 mg oral tablet)TAKE ONE TABLET BY MOUTH EVERY DAY. ?? omeprazole (omeprazole 40 mg oral delayed release capsule)TAKE ONE CAPSULE BY MOUTH EVERY DAY. ?? predniSONE (predniSONE 20 mg oral tablet) ?? sucralfate (sucralfate 1 g/10 mL oral suspension)SHAKE LIQUID AND TAKE 10ML BY MOUTH FOUR TIMES A DAY 1 HOUR BEFORE MEALS AND AT BEDTIME. Problem List/Past Medical History Ongoing No qualifying data Historical No qualifying data Medication Administration Given Sodium Chloride 0.9%, 1000 mL, IV Bolus Al hydroxide/Mg hydroxide/simethicone, 30 mL, Oral Lidocaine Viscous, 15 mL, Oral Allergies aspirin Social History Alcohol Never Electronic Cigarette/Vaping Electronic Cigarette Use: Unknown/not obtained. Substance Use Never Tobacco Current everyday tobacco user Tobacco Use:. Diagnostic Results US Abdomen Limited 06/21/2023 12:44 EDT US Abdomen Limited ?? 06/21/23 12:41:59 EXAM DESCRIPTION: US Abdomen Limited ?? 06/21/2023 ?? INDICATION: ABDOMINAL PAIN, RIGHT UPPER QUADRANT ?? TECHNIQUE: Grayscale and color Doppler ultrasound examination of the right upper quadrant region of the abdomen. ?? COMPARISON: None ?? FINDINGS: Liver measures 16.6 cm in maximum dimension. Normal homogeneous hepatic echotexture with no focal hepatic lesion identified. No hepatic surface nodularity or findings to suggest hepatic steatosis. The main portal vein is patent with normal flow direction. ?? No ascites in right upper quadrant ?? Pancreas appears unremarkable ?? No cholelithiasis, gallbladder wall thickening or pericholecystic fluid accumulation. No biliary dilatation with common bile duct diameter of 5 mm. ?? Positive sonographic Karimi sign ?? Right kidney measures 13.1 cm in maximum dimension. No focal right renal mass, hydronephrosis or perinephric fluid collection. ?? IMPRESSION: No cholelithiasis or biliary dilatation ?? Positive sonographic Karimi sign ? JOB #: [id number] Electronically Signed By: ?? Signed By: Cecil Patel MD Lab Results CBC and Differential?? LATEST RESULTS?? HISTORICAL RESULTS?? WBC?? 06/21/23 10:57?? 10.5?? 06/17/23?? 9.2?? RBC?? 06/21/23 10:57?? 4.91?? 06/17/23?? 4.96?? Hgb?? 06/21/23 10:57?? 14.0?? 06/17/23?? 14.1?? Hct?? 06/21/23 10:57?? 44.5?? 06/17/23?? 44.6?? MCV?? 06/21/23 10:57?? 90.6?? 06/17/23?? 89.9?? MCH?? 06/21/23 10:57?? 28.5?? 06/17/23?? 28.4?? MCHC?? 06/21/23 10:57?? 31.5 ??Low?? 06/17/23?? 31.6 ??Low?? RDW-CV?? 06/21/23 10:57?? 13.9?? 06/17/23?? 13.6?? Platelets?? 06/21/23 10:57?? 254?? 06/17/23?? 267?? MPV?? 06/21/23 10:57?? 10.7 ??High?? 06/17/23?? 10.3?? Neutro Auto?? 06/21/23 10:57?? 85.3 ??High?? 06/17/23?? 64.8?? Lymph Auto?? 06/21/23 10:57?? 9.4 ??Low?? 06/17/23?? 25.9?? [place] Auto?? 06/21/23 10:57?? 2.1?? 06/17/23?? 6.0?? Eos, Auto?? 06/21/23 10:57?? 1.90?? 06/17/23?? 2.40?? Basophil Auto?? 06/21/23 10:57?? 0.9 ??High?? 06/17/23?? 0.4?? Imm Gran Auto?? 06/21/23 10:57?? 0.4?? 06/17/23?? 0.5?? Neutro Absolute?? 06/21/23 10:57?? 9.0 ??High?? 06/17/23?? 5.9?? Lymph Absolute?? 06/21/23 10:57?? 1.0 ??Low?? 06/17/23?? 2.4?? [place] Absolute?? 06/21/23 10:57?? 0.2?? 06/17/23?? 0.6?? Eos Absolute?? 06/21/23 10:57?? 0.2?? 06/17/23?? 0.2?? Baso Absolute?? 06/21/23 10:57?? 0.1?? 06/17/23?? 0.0?? Imm Gran Absolute?? 06/21/23 10:57?? 0.04 ??High?? 06/17/23?? 0.05 ??High?? Slide Review?? 06/21/23 10:57?? Not Indicated? Routine Chemistry?? LATEST RESULTS?? HISTORICAL RESULTS?? Sodium Level?? 06/21/23 10:57?? 140?? 06/17/23?? 141?? Potassium Level?? 06/21/23 10:57?? 4.0?? 06/17/23?? 4.0?? Chloride Level?? 06/21/23 10:57?? 104?? 06/17/23?? 104?? CO2?? 06/21/23 10:57?? 25?? 06/17/23?? 30?? Alk Phos?? 06/21/23 10:57?? 54?? 06/17/23?? 76?? AST?? 06/21/23 10:57?? 16?? 06/17/23?? 15?? ALT?? 06/21/23 10:57?? 19?? 06/17/23?? 21?? BUN?? 06/21/23 10:57?? 23?? 06/17/23?? 25?? Glucose Level?? 06/21/23 10:57?? 116 ??High?? 06/17/23?? 115 ??High?? Creatinine Level?? 06/21/23 10:57?? 0.66?? 06/17/23?? 0.65?? BUN/Creat Ratio?? 06/21/23 10:57?? 34.8 ??High?? 06/17/23?? 38.5 ??High?? eGFR CKD-EPI?? 06/21/23 10:57?? 102?? 06/17/23?? 103?? Calcium Level?? 06/21/23 10:57?? 9.3?? 06/17/23?? 9.5?? Protein Total?? 06/21/23 10:57?? 7.2?? 06/17/23?? 6.9?? Albumin Level?? 06/21/23 10:57?? 4.1?? 06/17/23?? 4.1?? Globulin?? 06/21/23 10:57?? 3.1?? 06/17/23?? 2.8?? A/G Ratio?? 06/21/23 10:57?? 1.3?? 06/17/23?? 1.5?? Bilirubin Total?? 06/21/23 10:57?? 0.7?? 06/17/23?? 0.4?? Anion Gap?? 06/21/23 10:57?? 11.0?? 06/17/23?? 7.0?? Lipase Level?? 06/21/23 10:57?? 31?? 06/17/23?? 32?? Magnesium Level?? 06/21/23 10:57?? 2.2? Osmolality?? 06/21/23 10:57?? 284?? 06/17/23?? 287? Serum Toxicology?? LATEST RESULTS?? Ethanol Level?? 06/21/23 10:57?? See comment?? Instr Ethanol Lvl?? 06/21/23 10:57?? <5? UA Macroscopic?? LATEST RESULTS?? Urine Srce?? 06/21/23 10:54?? Clean Catch?? UA Color?? 06/21/23 10:54?? LIGHT YELL?? UA Appear?? 06/21/23 10:54?? Clear?? UA Glucose?? 06/21/23 10:54?? Negative?? UA Bili?? 06/21/23 10:54?? Negative?? UA Ketones?? 06/21/23 10:54?? Negative?? UA Spec Grav?? 06/21/23 10:54?? <=1.005?? UA Blood?? 06/21/23 10:54?? Negative?? UA pH?? 06/21/23 10:54?? 5.50?? UA Protein?? 06/21/23 10:54?? Negative?? UA Urobilinogen?? 06/21/23 10:54?? 0.2?? UA Nitrite?? 06/21/23 10:54?? Negative?? UA Leuk Est?? 06/21/23 10:54?? Negative? Electronically Signed on 06/21/23 03:05 PM Jessica Sapp APRN Emergency department Discharge instructions * Jessica Sapp APRN: PERFORM Event Display: ED Discharge Information Authored Date: [id number] JUSTINO ZABALA :1965 Age:58 years Sex:Female Visit Date:06/21/2023 Discharge Instructions We would like to thank you for allowing us to assist you with your healthcare needs. The following includes patient education materials and information regarding your injury/illness. Discharge Vitals Temperature??(Temporal Artery) 97.2 ??F (36.2 ??C) Heart Rate??(Peripheral) 95 Respiratory Rate?? 16 Blood Pressure?? 140/81?? Height?? 66.93 in (170.000 cm) Weight??(Estimated) 141.12 lb (64.00 kg) Allergies aspirin What to Do Next Instructions from Your Care Team Your ultrasound did not show any obvious gallstones although on exam you were pretty tender in the right upper quadrant.?? I feel that given your acute on chronic continued abdominal pain??and issues??with intermittent constipation??that referral to gastroenterology would be appropriate 3. ??I will send the referral. ??If you do not hear from??the them by next week I would call them at [phone]. I would recommend picking up ypwc-qqq-zjonupa??biotics such as lactobacillus or acidophyllis,??or fermented foods to assist??your gut biome. I would also encourage you to make sure you are staying adequately hydrated, eating??a majority amount of high-fiber fruits and vegetables. ??You may continue with stool softener??if you feel its appropriate.?? Seek urgent and or emergent care for any worsening or concerning symptoms??for example fever, increased pain with nausea or vomiting.?? Changes in bowel or bladder function or any other worsening symptoms. You were treated today on an emergency basis; it may be loyd to contact your primary care provider to notify them of your visit today. You may have been referred to your regular doctor or a specialist, please follow up as instructed. If your condition worsens or you can't get in to see the doctor, contact the Emergency Department. Medications What When Instructions Next Dose Unchanged albuterol (Ventolin HFA 90 mcg/ inh inhalation aerosol) INHALE ONE TO TWO PUFFS BY MOUTH EVERY 4 HOURS NEEDED FOR SHORTNESS OF BREATH OR WHEEZING ?? Unchanged amoxicillin-clavulanate (amoxicillin-clavulanate 875 mg-125 mg oral tablet) Unchanged benzonatate (benzonatate 100 mg oral capsule) TAKE 1-2 CAPSULES BY MOUTH THREE TIMES A DAY NEEDED FOR COUGH ?? Unchanged doxycycline (doxycycline hyclate 100 mg oral capsule) take 1 capsule by mouth twice a day for 10 days ?? Unchanged fluticasone-salmeterol (Advair HFA 230 mcg-21 mcg/ inh inhalation aerosol) Unchanged ipratropium-albuterol (Combivent Respimat CFC free 20 mcg-100 mcg/ inh inhalation aerosol) INHALE ONE PUFF BY MOUTH FOUR TIMES A DAY ?? Unchanged methylphenidate (methylphenidate 10 mg oral tablet) TAKE ONE AND ONE-HALF TABLETS BY MOUTH THREE TIMES A DAY ?? Unchanged montelukast (montelukast 10 mg oral tablet) TAKE ONE TABLET BY MOUTH EVERY DAY ?? Unchanged omeprazole (omeprazole 40 mg oral delayed release capsule) TAKE ONE CAPSULE BY MOUTH EVERY DAY ?? Unchanged predniSONE (predniSONE 20 mg oral tablet) Unchanged sucralfate (sucralfate 1 g/ 10 mL oral suspension) SHAKE LIQUID AND TAKE 10ML BY MOUTH FOUR TIMES A DAY 1 HOUR BEFORE MEALS AND AT BEDTIME ?? Education Materials Abdominal Pain, Adult Pain in the abdomen (abdominal pain) can be caused by many things. Often, abdominal pain is not serious and it gets better with no treatment or by being treated at home. However, sometimes abdominal pain is serious. Your health care provider will ask questions about your medical history and do a physical exam to try to determine the cause of your abdominal pain. Follow these instructions at home: Medicines ? Take [id number] and prescription medicines only as told by your health care provider. ? Do not take a laxative unless told by your health care provider. General instructions ? Watch your condition for any changes. ? Drink enough fluid to keep your urine pale yellow. ? Keep all follow-up visits as told by your health care provider. This is important. Contact a health care provider if: ? Your abdominal pain changes or gets worse. ? You are not hungry or you lose weight without trying. ? You are constipated or have diarrhea for more than 2???3 days. ? You have pain when you urinate or have a bowel movement. ? Your abdominal pain wakes you up at night. ? Your pain gets worse with meals, after eating, or with certain foods. ? You are vomiting and cannot keep anything down. ? You have a fever. ? You have blood in your urine. Get help right away if: ? Your pain does not go away as soon as your health care provider told you to expect. ? You cannot stop vomiting. ? Your pain is only in areas of the abdomen, such as the right side or the left lower portion of the abdomen. Pain on the right side could be caused by appendicitis. ? You have bloody or black stools, or stools that look like tar. ? You have severe pain, cramping, or bloating in your abdomen. ? You have signs of dehydration, such as: ? Dark urine, very little urine, or no urine. ? Cracked lips. ? Dry mouth. ? Sunken eyes. ? Sleepiness. ? Weakness. ? You have trouble breathing or chest pain. Summary ? Often, abdominal pain is not serious and it gets better with no treatment or by being treated at home. However, sometimes abdominal pain is serious. ? Watch your condition for any changes. ? Take [id number] and prescription medicines only as told by your health care provider. ? Contact a health care provider if your abdominal pain changes or gets worse. ? Get help right away if you have severe pain, cramping, or bloating in your abdomen. This information is not intended to replace advice given to you by your health care provider. Make sure you discuss any questions you have with your health care provider. Document Revised: 10/01/2020 Document Reviewed: 12/22/2019 [employer] Patient Education ?? 2022 [employer] Tests Performed Radiology US Abdomen Limited 06/21/2023 12:44 EDT Medications and Immunizations Administered Given Sodium Chloride 0.9%, 1000 mL, IV Bolus Al hydroxide/Mg hydroxide/simethicone, 30 mL, Oral Lidocaine Viscous, 15 mL, Oral Lab Test Name Test Result Date/Time WBC 10.5 K/mcL 06/21/2023 10:57 EDT RBC 4.91 Million/mcL 06/21/2023 10:57 EDT Hgb 14.0 g/dL 06/21/2023 10:57 EDT Hct 44.5 % 06/21/2023 10:57 EDT MCV 90.6 fL 06/21/2023 10:57 EDT MCH 28.5 pg 06/21/2023 10:57 EDT MCHC 31.5 g/dL 06/21/2023 10:57 EDT RDW-CV 13.9 % 06/21/2023 10:57 EDT Platelets 254 K/mcL 06/21/2023 10:57 EDT MPV 10.7 fL 06/21/2023 10:57 EDT Neutro Auto 85.3 % 06/21/2023 10:57 EDT Lymph Auto 9.4 % 06/21/2023 10:57 EDT [place] Auto 2.1 % 06/21/2023 10:57 EDT Eos, Auto 1.90 % 06/21/2023 10:57 EDT Basophil Auto 0.9 % 06/21/2023 10:57 EDT Imm Gran Auto 0.4 % 06/21/2023 10:57 EDT Neutro Absolute 9.0 K/mcL 06/21/2023 10:57 EDT Lymph Absolute 1.0 K/mcL 06/21/2023 10:57 EDT [place] Absolute 0.2 K/mcL 06/21/2023 10:57 EDT Eos Absolute 0.2 K/mcL 06/21/2023 10:57 EDT Baso Absolute 0.1 K/mcL 06/21/2023 10:57 EDT Imm Gran Absolute 0.04 K/mcL 06/21/2023 10:57 EDT Slide Review Not Indicated 06/21/2023 10:57 EDT Sodium Level 140 mmol/L 06/21/2023 10:57 EDT Potassium Level 4.0 mmol/L 06/21/2023 10:57 EDT Chloride Level 104 mmol/L 06/21/2023 10:57 EDT CO2 25 mmol/L 06/21/2023 10:57 EDT Alk Phos 54 IntlUnit/L 06/21/2023 10:57 EDT AST 16 IntlUnit/L 06/21/2023 10:57 EDT ALT 19 IntlUnit/L 06/21/2023 10:57 EDT BUN 23 mg/dL 06/21/2023 10:57 EDT Glucose Level 116 mg/dL 06/21/2023 10:57 EDT Creatinine Level 0.66 mg/dL 06/21/2023 10:57 EDT BUN/Creat Ratio 34.8 06/21/2023 10:57 EDT eGFR CKD-EPI 102 mL/min/1.73 m2 06/21/2023 10:57 EDT Calcium Level 9.3 mg/dL 06/21/2023 10:57 EDT Protein Total 7.2 g/dL 06/21/2023 10:57 EDT Albumin Level 4.1 g/dL 06/21/2023 10:57 EDT Globulin 3.1 g/dL 06/21/2023 10:57 EDT A/G Ratio 1.3 g/dL 06/21/2023 10:57 EDT Bilirubin Total 0.7 mg/dL 06/21/2023 10:57 EDT Anion Gap 11.0 06/21/2023 10:57 EDT Lipase Level 31 unit/L 06/21/2023 10:57 EDT Magnesium Level 2.2 mg/dL 06/21/2023 10:57 EDT Osmolality 284 mOsm/kg 06/21/2023 10:57 EDT Ethanol Level See comment 06/21/2023 10:57 EDT Instr Ethanol Lvl <5 mg/dL 06/21/2023 10:57 EDT Urine Srce Clean Catch 06/21/2023 10:54 EDT UA Color LIGHT YELL 06/21/2023 10:54 EDT UA Appear CLEAR. 06/21/2023 10:54 EDT UA Glucose NEGATIVE 06/21/2023 10:54 EDT UA Bili NEGATIVE 06/21/2023 10:54 EDT UA Ketones NEGATIVE 06/21/2023 10:54 EDT UA Spec Grav <=1.005 06/21/2023 10:54 EDT UA Blood NEGATIVE 06/21/2023 10:54 EDT UA pH 5.50 06/21/2023 10:54 EDT UA Protein NEGATIVE 06/21/2023 10:54 EDT UA Urobilinogen 0.2 06/21/2023 10:54 EDT UA Nitrite NEGATIVE 06/21/2023 10:54 EDT UA Leuk Est NEGATIVE 06/21/2023 10:54 EDT Patient/Laundry Operator Signature Patient Name:JUSTINO ZABALA I have received this information and my questions have been answered. Patient/Laundry Operator Name: Patient/Laundry Operator Signature: Relationship to Patient: Witness Name/Signature: Date: Electronically Signed on: 06/21/2023 13:33 EDTSigned by:TYLER Patient Care team information Care Team Personnel Name: Jessica Sapp APRN Position: Physician Member Role: Physician Address: Address: [address] [place] [id number] Name: Caio Joiner Position: Nurse Member Role: Registered Nurse Care Team Related Persons Name: VISH VEGA Name: CLINT PEREZ
--- OUTSIDE RECORDS SUMMARY | 2023-09-06 12:09 | XMS_ITS | Continuity of Care Document ---
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) - Contact with and (suspected) exposure to COVID-19(Final) - Pulmonary nodules/lesions, multiple(Discharge Diagnosis) - 06/08/23 Emphysema lung(Discharge Diagnosis) - 06/08/23 COPD exacerbation(Discharge Diagnosis) - 06/08/23 Tobacco abuse(Discharge Diagnosis) - 06/08/23 Discharge Disposition: Home or Self Care Attending Physician: Yesi Boyle PA-C, [place] Admitting Physician: Yesi Boyle PA-C, [place] Allergies, Adverse Reactions, Alerts No Known Allergies Assessment and Plan Extracted from: Title:Dyspnea *ED Author:Yesi Boyle PA-C, [place] Date:06/08/23 History of Present Illness The patient presents with difficulty breathing and cough. The onset was 3 weeks ago. The course/duration of symptoms is constant and fluctuating in intensity. Degree at onset moderate. Degree at present moderate. The Exacerbating factors is none. The Relieving factors is none. Risk factors consist of chronic obstructive pulmonary disease and smoking. Prior episodes: occasional. Therapy today: beta-agonist (albuterol, inhaler, nebulizer, and Advair). Associated symptoms: chest pain and cough. Review of Systems Constitutional symptoms: No fever, no chills, no sweats. Skin symptoms: No rash, ENMT symptoms: No sore throat, no nasal congestion. Respiratory symptoms: Shortness of breath, cough, Sputum production: Yellow, comes and goes. Cardiovascular symptoms: Chest pain, diffuse, pleuritic. Gastrointestinal symptoms: No abdominal pain, no nausea, no vomiting, no diarrhea. Musculoskeletal symptoms: No back pain, Neurologic symptoms: No headache, no dizziness. Endocrine symptoms: weight loss, 80lbs in past 9 months, pt sts she was trying to lose weight. Hematologic/Lymphatic symptoms: Bleeding tendency negative, Allergy/immunologic symptoms: No recurrent infections, Health Status Allergies: No active allergies have been recorded.. Medications: Ritalin Advair Singulair Albuterol omeprazole. Immunizations: she has been immunized in the past for COVID and flu but boosters are not UTD. Past Medical/ Family/ Social History Medical history: COPD, on going smoking ADD. Social history: Social & Psychosocial History Social History visiting this area from out of town Tobacco Current everyday tobacco user Tobacco Use:. 1+ pack per day. Electronic Cigarette/Vaping Electronic Cigarette Use: Never. Psychosocial History No active psychosocial history has been recorded . Problem list: Active Problems (1) Tobacco user . Physical Examination Vital Signs Vital Signs 06/08/2023 1:53 EDT Temperature Oral 36.6 DegC Peripheral Pulse Rate 106 bpm HI Systolic Blood Pressure 163 mmHg HI Diastolic Blood Pressure 100 mmHg HI SpO2 96 % . General: Alert, thin appears much older than stated age, Not ill-appearing, Skin: Warm, dry, pink, no rash. Eye: Normal conjunctiva. Neck: Supple. Cardiovascular: Regular rate and rhythm, No murmur, Normal peripheral perfusion, No edema. Respiratory: Breath sounds are equal, Symmetrical chest wall expansion, Respirations: Regular, respiratory distress mild, shallow, Breath sounds: Diminished, wheezes present (moderate, inspiratory wheezes), Retractions: None. Back: Normal range of motion. Musculoskeletal: Normal ROM, no swelling, no deformity. Neurological: Alert and oriented to person, place, time, and situation, No focal neurological deficit observed, normal speech observed. Psychiatric: Cooperative, appropriate mood & affect. Medical Decision Making Documents reviewed: Prior records, not much records available, [facility] single visit for dental pain only. Orders Launch Orders Laboratory: CRP (Order): Blood, Stat collect, 06/08/2023 2:03 EDT, Once, Stop date 06/08/2023 2:03 EDT, Nurse collect CMP DH (Order): Blood, Stat collect, 06/08/2023 2:03 EDT, Once, Stop date 06/08/2023 2:03 EDT, Nurse collect CBC w/Diff DH (Order): Blood, Stat collect, 06/08/2023 2:03 EDT, Once, Stop date 06/08/2023 2:03 EDT, Nurse collect Patient Care: Peripheral IV Insertion (Order): 06/08/2023 2:04 EDT Continuous Oximetry (Order): 06/08/2023 2:03 EDT Pharmacy: methylPREDNISolone sodium succinate 125 mg preservative-free injection (Order): 80 mg, IV Push, Once albuterol 0.083% inhalation solution (Order): 15 mg, NEB, Once, PRN: Wheezing albuterol-ipratropium nebulizer solution (Order): 3 mL, NEB, Once Radiology: CT Angio Chest w/ Contrast (Order): 06/08/2023 2:03 EDT, Stat, Reason: SOB, pleuritic chest pain, smoker, Transport Mode: Stretcher, Rad Type Cardiovascular: EKG -- POC (Order): 06/08/2023 2:03 EDT, Stat, Cough, Launch Orders Pharmacy: doxycycline (Order): 100 mg, Oral, Once. Electrocardiogram: Time 06/08/2023 02:07:00, rate 80, normal sinus rhythm, No ST-T changes, no ectopy, normal MS & QRS intervals, EP Interp. Results review: Lab results : Lab View 06/08/2023 2:10 EDT WBC DH 7.3 x10(3)/mcL RBC DH 4.80 x10(6)/mcL Hgb DH 13.6 g/dL Hct DH 42.8 % MCV DH 89.2 fL MCH DH 28.3 pg MCHC DH 31.8 g/dL Platelet DH 200 x10(3)/mcL RDWSD DH 43.8 fL RDWCV DH 13.3 % MPV DH 10.4 fL Neutrophil % DH 62 % NA Neutro Absolute DH 4.6 x10(3)/mcL Lymph % DH 28 % NA Lymph Absolute DH 2.1 x10(3)/mcL Monocyte % DH 6 % NA Monocy Absolute DH 0.4 x10(3)/mcL Eos % DH 2 % NA Eos Absolute DH 0.2 x10(3)/mcL Basophil % DH 1 % NA Baso Absolute DH 0.1 x10(3)/mcL Immature Gran % DH 0.40 % NA Immature Gran DH 0.03 x10(3)/mcL NRBC Absolute DH 0 NA NRBC% auto DH 0 % Creatinine 0.64 mg/dL LOW Alk Phos DH 82 ALT DH 19 unit/L AST DH 16 unit/L Bili Total DH <0.2 mg/dL LOW Glucose Lvl DH 121 mg/dL HI BUN DH 22 mg/dL HI Est GFR DH 103 mL/min/1.73 m2 Sodium Lvl DH 141 mmol/L Potassium Lvl DH 4.3 mmol/L Chloride Lvl DH 104 mmol/L CO2 DH 26 mmol/L Anion Gap DH 11 mmol/L Calcium Lvl DH 9.1 mg/dL Total Protein DH 6.7 g/dL Albumin Lvl DH 4.1 g/dL CRP <3.0 mg/L 06/08/2023 1:46 EDT SARS-CoV-2 (COVID-19) PCR Not Detected Influenza A Negative Influenza B Negative . Radiology results: CT (ST) Computed Tomography: ?? CT Angio Chest w/ Contrast * Preliminary * ?? 06/08/23 04:27:47 PRELIMINARY REPORT EXAMINATION: CT ANGIO CHEST W/ CONTRAST CLINICAL HISTORY: SOB, pleuritic chest pain, smoker TECHNIQUE: Helical CT angiogram of the chest was performed following the intravenous administration of 110ml of Omnipaque 350. Maximum intensity projection (MIP) were reformatted. 3D images were generated on an independent workstation. COMPARISON: None FINDINGS: VASCULAR Pulmonary arteries: No pulmonary arterial filling defect. Heart: Normal size. Aorta: No stenosis or aneurysm. Great vessels: No stenosis or aneurysm. Celiac/SMA: No stenosis or aneurysm. NON-VASCULAR Lungs and large airways: Diffuse apically predominant centrilobular emphysema. Curvilinear opacities in the base of the right lower lobe, may reflect atelectasis. Patent airways. 9 mm and 3 mm solid left upper lobe nodules (series 5 image 35). Sub-6 mm right upper lobe nodules (series 5 image 58, 59, and 64) Pleura: Within normal limits. Mediastinum and moi: Within normal limits. Limited views of the upper abdomen: No significant findings. Osseous structures: Within normal limits. IMPRESSION: 1. No pulmonary embolism identified. 2. Centrilobular emphysema. 3. Multiple subcentimeter pulmonary nodules, largest left upper solid lobe nodule measures [address] chest 3-6 months. Unexpected Finding. 4. Right basilar atelectasis. Preliminary report signed by: Emanuel Montanez, at 06/08/2023 4:27 AM ?? Signed By: Lyndon Beauchamp M.D. . Reexamination/ Reevaluation Interventions: Duoneb x 1 Albuterol 15mg continuous neb over 1 hr Solumedrol 80mg IV Doxycycline 100mg po pt is not willing to wait any longer for the final CT interpretation from radiologist, so she is leaving on the preliminary interpretation. Impression and Plan Diagnosis COPD exacerbation (LYP43-FF J44.1, Discharge, Medical) Tobacco abuse (LBL54-RP Z72.0, Discharge, Medical) Emphysema lung (NIZ41-UA J43.9, Discharge, Medical) Pulmonary nodules/lesions, multiple (VJR83-EC R91.8, Discharge, Medical) Plan Disposition: Medically cleared, Discharged: to home. Prescriptions: Launch prescriptions Pharmacy: predniSONE 20 mg oral tablet (Prescribe): See Instructions, 2 tab(s) Oral Daily 7 day(s), then 1 tab q D x 7 days, 21 tab(s), 0 Refill(s) doxycycline hyclate 100 mg oral capsule (Prescribe): 100 mg = 1 cap(s), Oral, BID, for 10 day(s), 20 cap(s), 0 Refill(s). Patient was given the following educational materials: Chronic Obstructive Pulmonary Disease Exacerbation, Pulmonary Nodule. Follow up with: Follow up with primary care provider Within 1 week Take Prednisone 40mg daily for 1 week then 20mg daily for 1 week Take Doxycycline 100mg twice daily for 10 days continue Albuterol inhaler 2 puffs every 4 hrs or you nebulizer every 4 hrs, and Advair as previously directed. You have several lung nodules on your CT scan, these might represent early cancers or just scar tissue, you must get a repeat CT scan in 3 -6 months to see if they continue to grow or change which will tell your doctor if you need to get them biopsied or removed. Tell your doctor about this recommendation, so they can order the follow up CT for you. The CT scan results can be sent to your doctor directly. Call Medical Records in the morning with your doctors information and they will send it along.; , Follow up with primary care provider Within 1 week Take Prednisone 40mg daily for 1 week then 20mg daily for 1 week Take Doxycycline 100mg twice daily for 10 days continue Albuterol inhaler 2 puffs every 4 hrs or you nebulizer every 4 hrs, and Advair as previously directed. You have several lung nodules on your CT scan, these might represent early cancers or just scar tissue, you must get a repeat CT scan in 3 -6 months to see if they continue to grow or change which will tell your doctor if you need to get them biopsied or removed. Tell your doctor about this recommendation, so they can order the follow up CT for you. The CT scan results can be sent to your doctor directly. Call Medical Records in the morning with your doctors information and they will send it along.. Counseled: Patient, Regarding diagnosis, Regarding diagnostic results, Regarding treatment plan, Regarding prescription, Patient indicated understanding of instructions. Orders: Launch Orders Patient Care: Discharge (Order): 06/08/2023 4:34 EDT Charges: [facility] ED Professional Level Charges (Order) [id number] ER - PRO FEE LEVEL 5 Charge (Order): 06/08/2023 4:34 EDT, 1. Functional Status 06/08/23 History of Fall in Last 3 Months Saha N o Medications Advair Diskus 250 mcg-50 mcg inhalation powder 0 Refill(s) Start Date: 06/08/23 Status: Ordered albuterol 0.5% inhalation solution 0 Refill(s) Start Date: 06/08/23 Status: Ordered budesonide 0 Refill(s) Start Date: 06/08/23 Status: Ordered Combivent Respimat 0 Refill(s) Start Date: 06/08/23 Status: Ordered doxycycline hyclate 100 mg oral capsule 100 mg = 1 cap(s), Oral, BID, X 10 day(s), # 20 cap(s), 0 Refill(s), 06/18/23 4:24:00 AM EDT, Pharmacy: [facility] #[id number], 1 cap(s) Oral BID,x10 day(s), 170, cm, [...] 0 Refill(s), 06/22/23 12:00:00 AM EDT, Pharmacy: [facility] #[id number], 2 tab(s) Oral Daily 7 day(s), then 1 tab q D x 7 days, 170, cm, 06/08/23 1:53:00 EDT, Height/Length Dosing, 71.4, kg, 06/08/23 1:53:00 EDT, Weight Dosing Start Date: 06/08/23 Stop Date: 06/22/23 Status: Ordered Singulair 0 Refill(s) Start Date: 06/08/23 Status: Ordered Ventolin 0 Refill(s) Start Date: 06/08/23 Status: Ordered Mental Status 06/08/23 Level of Consciousness Alert Results Laboratory List Name Date C Reactive Protein (CRP) 06/08/23 CBC w/Diff DH 06/08/23 CMP DH 06/08/23 SARS-CoV-2 (COVID-19)/Influenza PCR (Alyson t) 06/08/23 Most recent to oldest [Reference Range]: 1 Albumin Lvl DH [3.2-5.2 g/dL] 4.1 g/dL (06/08/23 2:10 AM) Alk Phos DH [35-105] 82 (06/08/23 2:10 AM) ALT DH [0-30 unit/L] 19 unit/L (06/08/23 2:10 AM) Anion Gap DH [5-15 mmol/L] 11 mmol/L (06/08/23 2:10 AM) AST DH [0-30 unit/L] 16 unit/L (06/08/23 2:10 AM) Bili Total DH [0.2-1.3 mg/dL] <0.2 mg/dL *LOW* (06/08/23 2:10 AM) Chloride Lvl DH [98-107 mmol/L] 104 mmol /L (06/08/23 2:10 AM) CO2 DH [22-31 mmol/L] 26 mmol/L (06/08/23 2:10 AM) Est GFR DH [>=60 mL/min/1.73 m2] 103 mL/ min/1.73 m2 1 (06/08/23 2:10 AM) Glucose Lvl DH [65-99 mg/dL] 121 mg/dL *HI* (06/08/23 2:10 AM) NRBC% auto DH [0-0 %] 0 % (06/08/23 2:10 AM) NRBC Absolute DH 0 *NA* (06/08/23 2:10 AM) Potassium Lvl DH [3.5-5.0 mmol/L] 4.3 mm ol/L (06/08/23 2:10 AM) Sodium Lvl DH [135-145 mmol/L] 141 mmol/ L (06/08/23 2:10 AM) Total Protein DH [6.1-8.0 g/dL] 6.7 g/dL (06/08/23 2:10 AM) BUN DH [8-18 mg/dL] 22 mg/dL *HI* (06/08/23 2:10 AM) Calcium Lvl DH [8.5-10.5 mg/dL] 9.1 mg/d L (06/08/23 2:10 AM) Creatinine [0.70-1.20 mg/dL] .64 mg/dL *LOW* (06/08/23 2:10 AM) CRP [0.0-5.0 mg/L] <3.0 mg/L (06/08/23 2:10 AM) Influenza A [Negative] Negative 2 (06/08/23 1:46 AM) Influenza B [Negative] Negative (06/08/23 1:46 AM) Baso Absolute DH [0.0-0.2 x10(3)/mcL] 0. 1 x10(3)/mcL (06/08/23 2:10 AM) Basophil % DH 1 % *NA* (06/08/23 2:10 AM) Eos % DH 2 % *NA* (06/08/23 2:10 AM) Eos Absolute DH [0.0-0.5 x10(3)/mcL] 0.2 x10(3)/mcL (06/08/23 2:10 AM) Hct DH [35.7-45.8 %] 42.8 % (06/08/23 2:10 AM) Hgb DH [11.7-15.5 g/dL] 13.6 g/dL (06/08/23 2:10 AM) Immature Gran % DH 0.40 % *NA* (06/08/23 2:10 AM) Immature Gran DH [0.00-0.05 x10(3)/mcL] 0.03 x10(3)/mcL (06/08/23 2:10 AM) Lymph % DH 28 % *NA* (06/08/23 2:10 AM) Lymph Absolute DH [0.9-3.2 x10(3)/mcL] 2 .1 x10(3)/mcL (06/08/23 2:10 AM) MCHC DH [31.7-35.0 g/dL] 31.8 g/dL (06/08/23 2:10 AM) MCH DH [27.1-32.0 pg] 28.3 pg (06/08/23 2:10 AM) MCV DH [82.6-94.4 fL] 89.2 fL (06/08/23 2:10 AM) Monocy Absolute DH [0.3-0.9 x10(3)/mcL] 0.4 x10(3)/mcL (06/08/23 2:10 AM) Monocyte % DH 6 % *NA* (06/08/23 2:10 AM) MPV DH [7.6-12.9 fL] 10.4 fL (06/08/23 2:10 AM) Neutro Absolute DH [1.7-6.1 x10(3)/mcL] 4.6 x10(3)/mcL (06/08/23 2:10 AM) Neutrophil % DH 62 % *NA* (06/08/23 2:10 AM) Platelet DH [145-357 x10(3)/mcL] 200 x10 (3)/mcL (06/08/23 2:10 AM) RBC DH [4.00-5.21 x10(6)/mcL] 4.80 x10(6 )/mcL (06/08/23 2:10 AM) RDWCV DH [11.5-14.1 %] 13.3 % (06/08/23 2:10 AM) RDWSD DH [37.0-46.0 fL] 43.8 fL (06/08/23 2:10 AM) WBC DH [4.0-9.5 x10(3)/mcL] 7.3 x10(3)/m cL (06/08/23 2:10 AM) SARS-CoV-2 (COVID-19) PCR [Not Detected] Not Detected 3 (06/08/23 1:46 AM) 1Result Comment: This patient's estimated GFR was calculated using the 2020 CKD- EPI equation. The estimated GFR can vary from the measured GFR by up to 30% in the absence of rapidly changing kidney function. Assessment of the estimated GFR is not appropriate when creatinine concentrations are rapidly changing. For clinical situations in which a more precise estimate of GFR is necessary, consider alternative methods of GFR estimation such as a 24-hour urine creatinine clearance. Assignment of CKD stage 1-5 for patients with an eGFR near the transition point between stages may be based on clinical assessment of muscle mass and symptoms in addition to eGFR. 2Interpretive Data: A positive test result indicates that influenza infection is likely.?? Negative results does not exclude influenza infection and should be interpreted in conjunction with other laboratory and clinical data available.?? In patients with high clinical suspicion of influenza, repeattesting may be warranted. 3Interpretive Data: Influenza A and Influenza B negative results should be considered presumptive insamples that have a positive SARS CoV-2 result. CDC COVID-19 criteria for testing on human specimens and clinical management guidance information are available at the CDC Coronavirus Disease 2019 (COVID- 19) webpage under Information for Healthcare Professionals (https://www.cdc.gov/coronavirus/2019-ncov/hcp/index.html). Additional information about this and other EUA tests can be found in provider and patient fact sheets at the following FDA website: https://www.fda.gov/medical-devices/fpizctxjcfq-euuzvnr-2335-nzlrg-64-uavemfqvz- useauthorizations- medical-devices/nlpwv-rdpuxmrtzfh-etpl https://diagnostics.[employer]/us/en/products/params/envfg-vnih-bux-9-tbenmcorz-y -m-ssahilp-jjdy-test.html Radiology Reports * Exam Date Time Procedure Performing Provider Status 06/08/23 2:[address] Angio Chest w/ Contrast Ranjit Lyle sa; Modified Notes: (CT Angio Chest w/ Contrast) Reason For Exam: SOB, pleuritic chest pain, smoker CT ANGIO CHEST W/ CONTRAST EXAMINATION: CT ANGIO CHEST W/ CONTRAST CLINICAL HISTORY: SOB, pleuritic chest pain, smoker TECHNIQUE: Helical CT angiogram of the chest was performed following the intravenous administration of 75ml of Omnipaque 350. Maximum intensity projection (MIP) were reformatted. . COMPARISON: None FINDINGS: VASCULAR Pulmonary arteries: No pulmonary arterial filling defect. Heart: Normal size. Aorta: No stenosis or aneurysm. Great vessels: No stenosis or aneurysm. Celiac/SMA: No stenosis or aneurysm. NON-VASCULAR Lungs and large airways: Diffuse apically predominant centrilobular emphysema. Curvilinear opacities in the base of the right lower lobe, may reflect atelectasis. Patent airways. 9 mm and 3 mm solid left upper lobe nodules (series 5 image 35). Sub-6 mm right upper lobe nodules (series 5 image 58, 59, and 64) Pleura: Within normal limits. Mediastinum and moi: Within normal limits. Limited views of the upper abdomen: No significant findings. Osseous structures: Within normal limits. IMPRESSION: 1. No pulmonary embolism identified. 2. Centrilobular emphysema. 3. Multiple subcentimeter pulmonary nodules, largest left upper solid lobe nodule measures [address] chest 3-6 months. Unexpected Finding. 4. Right basilar atelectasis versus consolidation less likely. Preliminary report signed by: Emanuel Montanez DO at 06/08/2023 4:27 AM I have personally reviewed the image(s) and the resident's interpretation and agree with the findings, Lyndon Beauchamp MD at 06/08/2023 7:20 AM Thank you for letting us participate in the care of this patient. If you are a health care provider and have any questions regarding this report, please contact the number below. For patients who have questions please contact the health home care physical therapist that requested your imaging first. Final Dictated: 06/08/2023 7:25 am Lyndon Beauchamp M.D. Signed (Electronic Signature): 06/08/2023 7:20 am Signed by: Lyndon Beauchamp M.D. Transcribed by: SHAE Vital Signs Most recent to oldest [Reference Range]: 1 2 3 Temperature Oral [35.8-37.3 DegC] 36.6 DegC (06/08/23 1:53 AM) Peripheral Pulse Rate [60-100 bpm] 108 bpm *HI* (06/08/23 4:44 AM) 100 bpm (06/08/23 2:35 AM) 110 bpm *HI* (06/08/23 2:35 AM) Respiratory Rate [14-20 br/min] 20 br/min (06/08/23 4:44 AM) 24 br/min *HI* (06/08/23 2:35 AM) 22 br/min *HI* (06/08/23 2:35 AM) Blood Pressure [90-140/60-90 mmHg] 150/85mmHg *HI* (06/08/23 4:44 AM) 163/100mmHg *HI* (06/08/23 1:53 AM) Mean Arterial Pressure, Cuff [70-110 mmHg] 107 mmHg (06/08/23 4:44 AM) SpO2 [92-100 %] 92 % (06/08/23 4:44 AM) 96 % (06/08/23 1:53 AM) Height 170.000 cm (06/08/23 1:51 AM) Height/Length Dosing 170.000 cm (06/08/23 1:53 AM) Weight 71.400 kg (06/08/23 1:51 AM) Weight Dosing 71.400 kg (06/08/23 1:53 AM) Social History Social History Type Response Tobacco Current everyday tob acco user Tobacco Use:. 1+ pack per day. Sex Hospital Discharge Instructions Patient Education 06/08/2023 04:34:43 Pulmonary Nodule Pulmonary Nodule A pulmonary nodule is a small, round growth of tissue in the lung. It is sometimes referred to as ashadow or a spot on the lung. Nodules can vary in size, and most measure less than ?? of an inch (10 mm). Nodules bigger than 1.2 inches (3 cm) are called lung masses. A pulmonary nodule is sometimesfound during a routine chest X-ray or while other imaging tests are done to check for other problems. Pulmonary nodules can be either noncancerous (benign) or cancerous (malignant). Most are noncancerous. Smaller nodules in people who do not smoke and who do not have any other risk factors for lung cancer are more likely to be noncancerous. Larger, irregular nodules in people who smoke or who have a strong family history of lung cancer are more likely to be cancerous. What are the causes? This condition may be caused by: ??? A bacterial, fungal, or viral infection, such as tuberculosis. The infection is usually an old and inactive one. ??? Cancerous tissue, such as lung cancer or a cancer in another part of the body that has spread to the lung. ??? A noncancerous mass of tissue. ??? Inflammation from conditions such as rheumatoid arthritis. ??? Abnormal blood vessels in the lungs. What are the signs or symptoms? Usually, there are no symptoms of this condition. If symptoms appear, they are usually related to the underlying cause. For example, if the condition is caused by an infection, you may have a cough or a fever. How is this diagnosed? This condition is usually diagnosed with an X-ray or CT scan. To help determine whether a pulmonarynodule is benign or malignant, your health care provider will: ??? Take your medical history. ??? Perform a physical exam. ??? Order tests. These may include: ??? Chest X-rays. ??? A CT scan. This test shows smaller pulmonary nodules more clearly and with more detail than an X-ray. ??? A positron emission tomography (PET) scan. This test is done to check if a nodule is cancerous.During the test, a small amount of a radioactive substance is injected into the bloodstream. Then apicture is taken. ??? Biopsy to evaluate for cancer or confirm a diagnosis. This procedure involves removing a tissuesample from the nodule by inserting a needle through the chest, placing a scope down into the lung,or doing open surgery. ??? A skin test called a tuberculin test. This test is done to check if you have been exposed to the germ that causes tuberculosis. ??? Blood tests. How is this treated? Treatment for this condition depends on whether the pulmonary nodule is malignant or benign. It also depends on your risk of getting cancer. Noncancerous nodules usually do not need to be treated, but they may need to be monitored with CT scans. If a CT scan shows that the pulmonary nodule got bigger, more tests may be done. Nodules that are found to be cancerous after a biopsy require treatment depending on the type and stage of the cancer. You will need more diagnostic tests, such as CT and PET scans, to determine the stage of the cancer. Treatments for cancer can include: ??? Surgery. ??? Radiation therapy. ??? Chemotherapy. ??? Immunotherapy. Some nodules need to be removed. If you need a nodule removed, you may have a procedure called a thoracotomy. During the procedure, your health care provider will make an incision in your chest and remove the part of the lung where the nodule is located. Follow these instructions at home: ??? Take igar-jxw-ofnhrqz and prescription medicines only as told by your health care provider. ??? Do not use any products that contain nicotine or tobacco. These products include cigarettes, chewing tobacco, and vaping devices, such as e-cigarettes. If you need help quitting, ask your health care provider. ??? Keep all follow-up visits. This is important. Contact a health care provider if: ??? You have pain in your chest, back, or shoulder. ??? You are short of breath or have trouble breathing when you are active. ??? You develop a cough, or you develop hoarseness for an unexplained reason. ??? You feel sick or unusually tired. ??? You do not feel like eating or you lose weight without trying. ??? You develop chills or night sweats. ??? You need two or more pillows to sleep on at night. ??? You have any of these problems: ??? A fever and symptoms that suddenly get worse. ??? A fever or persistent symptoms for more than 2???3 days. Get help right away if: ??? You cannot catch your breath. ??? You have sudden chest pain. ??? You start making high-pitched whistling sounds when you breathe, most often when you breathe out (you wheeze). ??? You cannot stop coughing, or you cough up blood or bloody mucus from your lungs (sputum). ??? You become dizzy or feel like you may faint. These symptoms may represent a serious problem that is an emergency. Do not wait to see if the symptoms will go away. Get medical help right away. Call your local emergency services (911 in the [place] Do not drive yourself to the hospital. Summary ??? A pulmonary nodule is a small, round growth of tissue in the lung. Most pulmonary nodules are noncancerous. ??? Common causes of pulmonary nodules include infection, inflammation, and noncancerous growths. ??? This condition is usually diagnosed with an X-ray or CT scan. ??? Treatment for this condition depends on whether the pulmonary nodule is malignant or benign. Italso depends on your risk of getting cancer. ??? If a nodule is found to be cancerous, you will need specific diagnostic tests and treatment options as told by your health care provider. This information is not intended to replace advice given to you by your health care provider. Make sure you discuss any questions you have with your health care provider. Document Revised: 03/02/2021 Document Reviewed: 03/02/2021 [employer] Patient Education ?? 2022 [employer]. 06/08/2023 04:27:20 Chronic Obstructive Pulmonary Disease Exacerbation Chronic Obstructive Pulmonary Disease Exacerbation Chronic obstructive pulmonary disease (COPD) is a long-term (chronic) condition that affects the lungs. COPD is a general term that can be used to describe many different lung problems that cause lung inflammation and limit airflow, including chronic bronchitis and emphysema. COPD exacerbations areepisodes when breathing symptoms flare up, become much worse, and require extra treatment. COPD exacerbations are usually caused by infections. Without treatment, COPD exacerbations can be severe and even life threatening. Frequent COPD exacerbations can cause further damage to the lungs. What are the causes? This condition may be caused by: ??? Respiratory infections, including viral and bacterial infections. ??? Exposure to smoke. ??? Exposure to air pollution, chemical fumes, or dust. ??? Things that can cause an allergic reaction (allergens). ??? Not taking your usual COPD medicines as directed. ??? Underlying medical problems, such as congestive heart failure or infections not involving the lungs. In many cases, the cause of this condition is not known. What increases the risk? The following factors may make you more likely to develop this condition: ??? Smoking cigarettes. ??? Being an older adult. ??? Having frequent prior COPD exacerbations. What are the signs or symptoms? Symptoms of this condition include: ??? Increased coughing. ??? Increased production of mucus from your lungs. ??? Increased wheezing and shortness of breath. ??? Rapid or labored breathing. ??? Chest tightness. ??? Less energy than usual. ??? Sleep disruption from symptoms. ??? Confusion ??? Increased sleepiness. Often, these symptoms happen or get worse even with the use of medicines. How is this diagnosed? This condition is diagnosed based on: ??? Your medical history. ??? A physical exam. You may also have tests, including: ??? A chest X-ray. ??? Blood tests. ??? Lung (pulmonary) function tests. How is this treated? Treatment for this condition depends on the severity and cause of the symptoms. You may need to be admitted to a hospital for treatment. Some of the treatments commonly used to treat COPD exacerbations are: ??? Antibiotic medicines. These may be used for severe exacerbations caused by a lung infection, such as pneumonia. ??? Bronchodilators. These are inhaled medicines that expand the air passages and allow increased airflow. They may make your breathing more comfortable. ??? Steroid medicines. These act to reduce inflammation in the airways. They may be given with an inhaler, taken by mouth, or given through an IV tube inserted into one of your veins. ??? Supplemental oxygen therapy. ??? Airway clearing techniques, such as noninvasive ventilation (NIV) and positive expiratory pressure (PEP). These provide respiratory support through a mask or other noninvasive device. An example of this would be using a continuous positive airway pressure (CPAP) machine to improve delivery of oxygen into your lungs. Follow these instructions at home: Medicines ??? Take eabd-ujd-uhincic and prescription medicines only as told by your health care provider. ??? It is important to use correct technique with inhaled medicines. ??? If you were prescribed an antibiotic medicine or oral steroid, take it as told by your health care provider. Do not stop taking the medicine even if you start to feel better. Lifestyle ??? Do not use any products that contain nicotine or tobacco. These products include cigarettes, chewing tobacco, and vaping devices, such as e-cigarettes. If you need help quitting, ask your health care provider. ??? Eat a healthy diet. ??? Exercise regularly. ??? Get enough sleep. Most adults need 7 or more hours per night. ??? Avoid exposure to all substances that irritate the airway, especially tobacco smoke. ??? Regularly wash your hands with soap and water for at least 20 seconds. If soap and water are not available, use hand import export agent. This may help prevent you from getting infections. ??? During flu season, avoid enclosed spaces that are crowded with people. General instructions ??? Drink enough fluid to keep your urine pale yellow, unless you have a medical condition that requires fluid restriction. ??? Use a cool mist vaporizer. This humidifies the air and makes it easier for you to clear your chest when you cough. ??? If you have a home nebulizer and oxygen, continue to use them as told by your health care provider. ??? Keep all follow-up visits. This is important. How is this prevented? Stay up-to-date on pneumococcal and flu (influenza) vaccines. A flu shot is recommended every year to help prevent exacerbations. ??? Quitting smoking is very important in preventing COPD from getting worse and in preventing exacerbations from happening as often. ??? Follow all instructions for pulmonary rehabilitation after a recent exacerbation. This can helpprevent future exacerbations. ??? Work with your health care provider to develop and follow an action plan. This tells you what steps to take when you experience certain symptoms. Contact a health care provider if: ??? You have a worsening of your regular COPD symptoms. Get help right away if: ??? You have worsening shortness of breath, even when resting. ??? You have trouble talking. ??? You have severe chest pain. ??? You cough up blood. ??? You have a fever. ??? You have weakness, vomit repeatedly, or faint. ??? You feel confused. ??? You are not able to sleep because of your symptoms. ??? You have trouble doing daily activities. These symptoms may represent a serious problem that is an emergency. Do not wait to see if the symptoms will go away. Get medical help right away. Call your local emergency services (911 in the [place] Do not drive yourself to the hospital. Summary ??? COPD exacerbations are episodes when breathing symptoms become much worse and require extra treatment above your normal treatment. ??? Exacerbations can be severe and even life threatening. Frequent COPD exacerbations can cause further damage to your lungs. ??? COPD exacerbations are usually triggered by infections such as the flu, colds, and even pneumonia. ??? Treatment for this condition depends on the severity and cause of the symptoms. You may need lakia admitted to a hospital for treatment. ??? Quitting smoking is very important to prevent COPD from getting worse and to prevent exacerbations from happening as often. This information is not intended to replace advice given to you by your health care provider. Make sure you discuss any questions you have with your health care provider. Document Revised: 06/21/2021 Document Reviewed: 06/21/2021 [employer] Patient Education ?? 2022 [employer]. Follow Up Care 06/08/2023 01:45:25 With:Follow up with primary care provider Address:Unknown When:1 week Comments:Take Prednisone 40mg daily for 1 week then 20mg daily for 1 weekTake Doxycycline 100mg twice daily for 10 dayscontinue Albuterol inhaler 2 puffs every 4 hrs or you nebulizer every 4 hrs, and Advair as previously directed.You have several lung nodules on your CT scan, these might represent early cancers or just scar tissue, you must get a repeat CT scan in 3 -6 months to see if they continue to grow or change which will tell your doctor if you need to get them biopsied or removed.Tell your doctor about this recommendation, so they can order the follow up CT for you. The CT scan results can be sent to your doctor directly. Call Medical Records in the morning with your doctors information and they will send it along. Physician Emergency department Note * Yesi Boyle PA-C, CAGustavo-EM: MODIFY, MODIFY, MODIFY, VERIFY, MODIFY, SIGN, PERFORM Yesi Boyle PA-C, ANGELA-EM: PERFORM, MODIFY Yesi Boyle PA-C, CAQ-EM: MODIFY Clint Hector MD, FACEP: SIGN Event Display: ED Note - Provider Authored Date: [id number] Patient: JUSTINO ZABALA [facility]: [id number] Age: 58 years Sex: Female : 1965 Associated Diagnoses: COPD exacerbation; Tobacco abuse; Emphysema lung; Pulmonary nodules/lesions, multiple Author: Yesi Boyle PA-C, CAQ-EM Basic Information Time seen: Date & time 06/08/2023 01:49:00. History source: Patient. Arrival mode: Private vehicle. History limitation: None. Additional information: pt with known COPD c/o SOB, occasionally productive cough, pleuritic chest pain x 3 wks getting worse. Pt sts she had a cold at onset adn thought her sx's would get better butthey have not. She's been using her inhalers and neb without help. She ran out of her Singulair 3 days ago. She continues to smoke.. History of Present Illness The patient presents with difficulty breathing and cough. The onset was 3 weeks ago. The course/duration of symptoms is constant and fluctuating in intensity. Degree at onset moderate. Degree at present moderate. The Exacerbating factors is none. The Relieving factors is none. Risk factors consist of chronic obstructive pulmonary disease and smoking. Prior episodes: occasional. Therapy today: beta-agonist (albuterol, inhaler, nebulizer, and Advair). Associated symptoms: chest pain and cough. Review of Systems Constitutional symptoms: No fever, no chills, no sweats. Skin symptoms: No rash, ENMT symptoms: No sore throat, no nasal congestion. Respiratory symptoms: Shortness of breath, cough, Sputum production: Yellow, comes and goes. Cardiovascular symptoms: Chest pain, diffuse, pleuritic. Gastrointestinal symptoms: No abdominal pain, no nausea, no vomiting, no diarrhea. Musculoskeletal symptoms: No back pain, Neurologic symptoms: No headache, no dizziness. Endocrine symptoms: weight loss, 80lbs in past 9 months, pt sts she was trying to lose weight. Hematologic/Lymphatic symptoms: Bleeding tendency negative, Allergy/immunologic symptoms: No recurrent infections, Health Status Allergies: No active allergies have been recorded.. Medications: Ritalin Advair Singulair Albuterol omeprazole. Immunizations: she has been immunized in the past for COVID and flu but boosters are not UTD. Past Medical/ Family/ Social History Medical history: COPD, on going smoking ADD. Social history: Social & Psychosocial History Social History visiting this area from out of town Tobacco Current everyday tobacco user Tobacco Use:. 1+ pack per day. Electronic Cigarette/Vaping Electronic Cigarette Use: Never. Psychosocial History No active psychosocial history has been recorded . Problem list: Active Problems (1) Tobacco user . Physical Examination Vital Signs Vital Signs 06/08/2023 1:53 EDT Temperature Oral 36.6 DegC Peripheral Pulse Rate 106 bpm HI Systolic Blood Pressure 163 mmHg HI Diastolic Blood Pressure 100 mmHg HI SpO2 96 % . General: Alert, thin appears much older than stated age, Not ill-appearing, Skin: Warm, dry, pink, no rash. Eye: Normal conjunctiva. Neck: Supple. Cardiovascular: Regular rate and rhythm, No murmur, Normal peripheral perfusion, No edema. Respiratory: Breath sounds are equal, Symmetrical chest wall expansion, Respirations: Regular, respiratory distress mild, shallow, Breath sounds: Diminished, wheezes present (moderate, inspiratory wheezes), Retractions: None. Back: Normal range of motion. Musculoskeletal: Normal ROM, no swelling, no deformity. Neurological: Alert and oriented to person, place, time, and situation, No focal neurological deficit observed, normal speech observed. Psychiatric: Cooperative, appropriate mood & affect. Medical Decision Making Documents reviewed: Prior records, not much records available, [facility] single visit for dental pain only. Orders Launch Orders Laboratory: CRP (Order): Blood, Stat collect, 06/08/2023 2:03 EDT, Once, Stop date 06/08/2023 2:03 EDT, Nurse collect CMP DH (Order): Blood, Stat collect, 06/08/2023 2:03 EDT, Once, Stop date 06/08/2023 2:03 EDT, Nurse collect CBC w/Diff DH (Order): Blood, Stat collect, 06/08/2023 2:03 EDT, Once, Stop date 06/08/2023 2:03 EDT, Nurse collect Patient Care: Peripheral IV Insertion (Order): 06/08/2023 2:04 EDT Continuous Oximetry (Order): 06/08/2023 2:03 EDT Pharmacy: methylPREDNISolone sodium succinate 125 mg preservative-free injection (Order): 80 mg, IV Push, Once albuterol 0.083% inhalation solution (Order): 15 mg, NEB, Once, PRN: Wheezing albuterol-ipratropium nebulizer solution (Order): 3 mL, NEB, Once Radiology: CT Angio Chest w/ Contrast (Order): 06/08/2023 2:03 EDT, Stat, Reason: SOB, pleuritic chest pain, smoker, Transport Mode: Stretcher, Rad Type Cardiovascular: EKG -- POC (Order): 06/08/2023 2:03 EDT, Stat, Cough, Launch Orders Pharmacy: doxycycline (Order): 100 mg, Oral, Once. Electrocardiogram: Time 06/08/2023 02:07:00, rate 80, normal sinus rhythm, No ST-T changes, no ectopy, normal MS & QRS intervals, EP Interp. Results review: Lab results : Lab View 06/08/2023 2:10 EDT WBC DH 7.3 x10(3)/mcL RBC DH 4.80 x10(6)/mcL Hgb DH 13.6 g/dL Hct DH 42.8 % MCV DH 89.2 fL MCH DH 28.3 pg MCHC DH 31.8 g/dL Platelet DH 200 x10(3)/mcL RDWSD DH 43.8 fL RDWCV DH 13.3 % MPV DH 10.4 fL Neutrophil % DH 62 % NA Neutro Absolute DH 4.6 x10(3)/mcL Lymph % DH 28 % NA Lymph Absolute DH 2.1 x10(3)/mcL Monocyte % DH 6 % NA Monocy Absolute DH 0.4 x10(3)/mcL Eos % DH 2 % NA Eos Absolute DH 0.2 x10(3)/mcL Basophil % DH 1 % NA Baso Absolute DH 0.1 x10(3)/mcL Immature Gran % DH 0.40 % NA Immature Gran DH 0.03 x10(3)/mcL NRBC Absolute DH 0 NA NRBC% auto DH 0 % Creatinine 0.64 mg/dL LOW Alk Phos DH 82 ALT DH 19 unit/L AST DH 16 unit/L Bili Total DH <0.2 mg/dL LOW Glucose Lvl DH 121 mg/dL HI BUN DH 22 mg/dL HI Est GFR DH 103 mL/min/1.73 m2 Sodium Lvl DH 141 mmol/L Potassium Lvl DH 4.3 mmol/L Chloride Lvl DH 104 mmol/L CO2 DH 26 mmol/L Anion Gap DH 11 mmol/L Calcium Lvl DH 9.1 mg/dL Total Protein DH 6.7 g/dL Albumin Lvl DH 4.1 g/dL CRP <3.0 mg/L 06/08/2023 1:46 EDT SARS-CoV-2 (COVID-19) PCR Not Detected Influenza A Negative Influenza B Negative . Radiology results: CT (ST) Computed Tomography: ?? CT Angio Chest w/ Contrast * Preliminary * ?? 06/08/23 04:27:47 PRELIMINARY REPORT EXAMINATION: CT ANGIO CHEST W/ CONTRAST CLINICAL HISTORY: SOB, pleuritic chest pain, smoker TECHNIQUE: Helical CT angiogram of the chest was performed following the intravenous administration of 110ml of Omnipaque 350. Maximum intensity projection (MIP) were reformatted. 3D images were generated on an independent workstation. COMPARISON: None FINDINGS: VASCULAR Pulmonary arteries: No pulmonary arterial filling defect. Heart: Normal size. Aorta: No stenosis or aneurysm. Great vessels: No stenosis or aneurysm. Celiac/SMA: No stenosis or aneurysm. NON-VASCULAR Lungs and large airways: Diffuse apically predominant centrilobular emphysema. Curvilinear opacities in the base of the right lower lobe, may reflect atelectasis. Patent airways. 9 mm and 3 mm solid left upper lobe nodules (series 5 image 35). Sub-6 mm right upper lobe nodules (series 5 image 58, 59, and 64) Pleura: Within normal limits. Mediastinum and moi: Within normal limits. Limited views of the upper abdomen: No significant findings. Osseous structures: Within normal limits. IMPRESSION: 1. No pulmonary embolism identified. 2. Centrilobular emphysema. 3. Multiple subcentimeter pulmonary nodules, largest left upper solid lobe nodule measures [address] chest 3-6 months. Unexpected Finding. 4. Right basilar atelectasis. Preliminary report signed by: Emanuel Montanez DO at 06/08/2023 4:27 AM ?? Signed By: Lyndon Beauchamp M.D. . Reexamination/ Reevaluation Interventions: Duoneb x 1 Albuterol 15mg continuous neb over 1 hr Solumedrol 80mg IV Doxycycline 100mg po pt is not willing to wait any longer for the final CT interpretation from radiologist, so she is leaving on the preliminary interpretation. Impression and Plan Diagnosis COPD exacerbation (BOZ94-AQ J44.1, Discharge, Medical) Tobacco abuse (GLB54-EP Z72.0, Discharge, Medical) Emphysema lung (DON21-RL J43.9, Discharge, Medical) Pulmonary nodules/lesions, multiple (PXQ77-GO R91.8, Discharge, Medical) Plan Disposition: Medically cleared, Discharged: to home. Prescriptions: Launch prescriptions Pharmacy: predniSONE 20 mg oral tablet (Prescribe): See Instructions, 2 tab(s) Oral Daily 7 day(s), then 1 tab q D x 7 days, 21 tab(s), 0 Refill(s) doxycycline hyclate 100 mg oral capsule (Prescribe): 100 mg = 1 cap(s), Oral, BID, for 10 day(s), 20 cap(s), 0 Refill(s). Patient was given the following educational materials: Chronic Obstructive Pulmonary Disease Exacerbation, Pulmonary Nodule. Follow up with: Follow up with primary care provider Within 1 week Take Prednisone 40mg daily for 1week then 20mg daily for 1 week Take Doxycycline 100mg twice daily for 10 days continue Albuterol inhaler 2 puffs every 4 hrs or you nebulizer every 4 hrs, and Advair as previously directed. You have several lung nodules on your CT scan, these might represent early cancers or just scar tissue, you must get a repeat CT scan in 3 -6 months to see if they continue to grow or change which will tell your doctor if you need to get them biopsied or removed. Tell your doctor about this recommendation, so they can order the follow up CT for you. The CT scanresults can be sent to your doctor directly. Call Medical Records in the morning with your doctors information and they will send it along.; , Follow up with primary care provider Within 1 week Take Prednisone 40mg daily for 1 week then 20mg daily for 1 week Take Doxycycline 100mg twice daily for 10 days continue Albuterol inhaler 2 puffs every 4 hrs or you nebulizer every 4 hrs, and Advair as previously directed. You have several lung nodules on your CT scan, these might represent early cancers or just scar tissue, you must get a repeat CT scan in 3 -6 months to see if they continue to grow or change which will tell your doctor if you need to get them biopsied or removed. Tell your doctor about this recommendation, so they can order the follow up CT for you. The CT scanresults can be sent to your doctor directly. Call Medical Records in the morning with your doctors information and they will send it along.. Counseled: Patient, Regarding diagnosis, Regarding diagnostic results, Regarding treatment plan, Regarding prescription, Patient indicated understanding of instructions. Orders: Launch Orders Patient Care: Discharge (Order): 06/08/2023 4:34 EDT Charges: [facility] ED Professional Level Charges (Order) 22415 ER - PRO FEE LEVEL 5 Charge (Order): 06/08/2023 4:34 EDT, 1. [Electronically Signed on: 06/08/2023 04:42 EDT] Yesi Boyle PA-C, CAQ-EM [Electronically Signed on: 06/08/2023 07:27 EDT] Clint Hector MD, FACEP [Verified on: 06/08/2023 04:42 EDT] Yesi Boyle PA-C, CAQ-EM Patient Care team information Care Team Personnel Name: Physician, Non-Staff [facility] Position: [facility] No Access Member Role: Informed Provider Name: Keisha Johnson RN Position: [facility] RN LP Member Role: ED Nurse Name: Yesi Boyle PA-C, CAQ-EM Position: [facility] Independent LP Member Role: Admitting Physician Address: Address: [address] [place] [id number] Care Team Related Persons Name: MATILDA VEGA Name: CLINT HUTCHINSON
--- OUTSIDE RECORDS SUMMARY | 2023-09-06 12:09 | XMS_ITS | Continuity of Care Document ---
Author Name Unknown Organization [facility] Address Unknown Care Team Providers Care Diving Fisher Name Role Phone Physician, Non-Staff [facility] Primary Care Physici an Unavailable Encounter [facility] Date(s): 06/15/23 - 06/15/[address] [address] Discharge Disposition: Home Attending Physician: Parth Stone PA-C, CAQ-EM Admitting Physician: Parth Stone PA-C, CAQ-EM Allergies, Adverse Reactions, Alerts No Known Allergies Medications Advair Diskus 250 mcg-50 mcg inhalation powder 0 Refill(s) Start Date: 06/08/23 Status: Ordered albuterol 0.5% inhalation solution 0 Refill(s) Start Date: 06/08/23 Status: Ordered amoxicillin-clavulanate 875 mg-125 mg oral tablet 1 tab(s), Oral, q12hr, # 14 tab(s), 0 Refill(s), Pharmacy: [id number], 1 tab(s) Oral q12hr,x7day(s), 170, cm, [...] 0 Refill(s), 06/18/23 4:24:00 AM EDT, [facility]acy: [facility][id number], 1 cap(s) Oral BID,x10 day(s), 170, cm, 06/08/23 1:53:00 EDT, Height/Length Dosing, 71.4, kg, 06/08/23 1:53:00 EDT, Weight Dosing Start Date: 06/08/23 Stop Date: 06/18/23 Status: Ordered omeprazole 0 Refill(s) Start Date: 06/08/23 Status: Ordered predniSONE 20 mg oral tablet 40 mg = 2 tab(s), Oral, Daily, # 10 tab(s), 0 Refill(s), Pharmacy: [facility] #[id number], 2 tab(s) Oral Daily,x5 day(s), 170, cm, 06/15/23 11:13:00 EDT, Height/Length Dosing, 71.4, kg, 06/15/23 11:13:00 EDT, Weight Dosing Start Date: 06/15/23 Stop Date: 06/20/23 Status: Ordered predniSONE 20 mg oral tablet See Instructions, 2 tab(s) Oral Daily 7 day(s), then 1 tab q D x 7 days, # 21 tab(s), 0 Refill(s), 06/22/23 12:00:00 AM EDT, Pharmacy: [facility] #[id number], 2 tab(s) Oral Daily 7 day(s), then 1 tab q D x 7 days, 170, cm, 06/08/23 1:53:00 EDT, Height/Length Dosing, 71.4, kg, 06/08/23 1:53:00 EDT, Weight Dosing Start Date: 06/08/23 Stop Date: 06/22/23 Status: Ordered ProAir HFA 90 mcg/inh inhalation aerosol = 2 puff(s), INH, q4hr, PRN PRN for wheezing, # 8.5 gm, 0 Refill(s), Pharmacy: [facility] #[id number], 2 puff(s) INH q4hr,x30 day(s),PRN:for wheezing, 170, cm, 06/15/23 11:13:00 EDT, Height/Length Dosing, 71.4, kg, 06/15/23 11:13:00 EDT, Weight Dosing Start Date: 06/15/23 Stop Date: 07/15/23 Status: Ordered Singulair 0 Refill(s) Start Date: 06/08/23 Status: Ordered Ventolin 0 Refill(s) Start Date: 06/08/23 Status: Ordered Results Radiology Reports * Exam Date Time Procedure Performing Provider Status 06/15/23 11:32 AM XR Chest 2 Views Corbin Lucas; Modified Notes: (XR Chest 2 Views) Reason For Exam: productive cough, dx with COPD exacerbation one week ago, symptoms not improving XR CHEST 2 VIEWS EXAMINATION: XR CHEST 2 VIEWS CLINICAL HISTORY: productive cough, dx with COPD exacerbation one week ago, symptoms not improving TECHNIQUE: PA and lateral chest radiograph views COMPARISON: CT angiogram chest 06/08/2023 FINDINGS: Hyperinflated lungs with flattened diaphragms and paucity and attenuation of vessels in the upper lobes. Bibasilar atelectasis. A left upper lobe nodule overlying the posterior left seventh rib has been demonstrated on recent chest CT. No pleural effusion or pneumothorax. Normal cardiomediastinal silhouette. IMPRESSION: No acute pulmonary findings I have personally reviewed the image(s) and the resident's interpretation and agree with the findings, Iglesia Rudolph MD at 06/15/2023 1:40 PM Thank you for letting us participate in the care of this patient. If you are a health care provider and have any questions regarding this report, please contact the number below. For patients who have questions please contact the health career information specialist that requested your imaging first. Electronically signed by: Iglesia Rudolph MD, [facility] ([phone]), at 06/15/2023 1:40 PM Final Dictated: 06/15/2023 1:45 pm Generated Domain User for [id number] Signed (Electronic Signature): 06/15/2023 1:40 pm Signed by: Generated Domain User for [id number] Transcribed by: SHAE Social History Social History Type Response Tobacco Current everyday tob acco user Tobacco Use:. 1+ pack per day. Sex Patient Care team information Care Team Personnel Name: Physician, Non-Staff [facility] Position: [facility] No Access Member Role: Informed Provider Care Team Related Persons Name: MATILDA VEGA Name: CLINT HUTCHINSON
--- OUTSIDE RECORDS SUMMARY | 2023-09-06 12:09 | XMS_ITS | Continuity of Care Document ---
Author Name Unknown Organization [facility] Address [address] [place] [address] Encounter [facility] FIN NBR [id number] Date(s): 06/17/23 - 06/17/23 [facility] [address], [place] [address] Encounter Diagnosis Constipation in female(Discharge Diagnosis) - 06/17/23 Indigestion(Discharge Diagnosis) - 06/17/23 Constipation, unspecified(Final) - Functional dyspepsia(Final) - Discharge Disposition: Home or Self Care Attending Physician: Shivani Currie MD Admitting Physician: Shivani Currie MD Allergies, Adverse Reactions, Alerts Substance Reaction [...] Start Date: 06/17/23 Status: Ordered Mental Status 06/17/23 Eye Opening Response [place] Spontaneous ly Best Verbal Response Purnima Oriented Best Motor Response [place] Obeys comman ds [place]als Coma Score 15 Results Laboratory List Name Date CBC w/ Diff 06/17/23 Comprehensive Metabolic Panel (CMP) 05/28 10/19 Lipase Level 06/17/23 Automated Diff 06/17/23 Most recent to oldest [Reference Range]: 1 WBC [4.8-10.8 K/mcL] 9.2 K/mcL (06/17/23 7:44 PM) RBC [4.20-5.40 Million/mcL] 4.96 Million /mcL (06/17/23 7:44 PM) Neutro Auto [42.2-75.2 %] 64.8 % (06/17/23 7:44 PM) Lymph Auto [20.5-51.1 %] 25.9 % (06/17/23 7:44 PM) [place] Auto [1.7-9.3 %] 6.0 % (06/17/23 7:44 PM) Basophil Auto [0.0-0.8 %] 0.4 % (06/17/23 7:44 PM) BUN [8-26 mg/dL] 25 mg/dL (06/17/23 7:44 PM) Glucose Level [74-106 mg/dL] 115 mg/dL *HI* (06/17/23 7:44 PM) Potassium Level [3.5-5.1 mmol/L] 4.0 mmo l/L (06/17/23 7:44 PM) Baso Absolute [0.0-0.2 K/mcL] 0.0 K/mcL (06/17/23 7:44 PM) MCV [81.0-99.0 fL] 89.9 fL (06/17/23 7:44 PM) AST [15-41 IntlUnit/L] 15 IntlUnit/L (06/17/23 7:44 PM) ALT [14-54 IntlUnit/L] 21 IntlUnit/L (06/17/23 7:44 PM) MCHC [32.0-37.0 g/dL] 31.6 g/dL *LOW* (06/17/23 7:44 PM) Osmolality [275-295 mOsm/kg] 287 mOsm/kg (06/17/23 7:44 PM) Sodium Level [134-143 mmol/L] 141 mmol/L (06/17/23 7:44 PM) Lymph Absolute [1.2-3.4 K/mcL] 2.4 K/mcL (06/17/23:44 PM) Hct [37.0-47.0 %] 44.6 % (06/17/2344 PM) Lipase Level [18-51 unit/L] 32 unit/L 1 (06/17/23:44 PM) Calcium Level [8.9-10.3 mg/dL] 9.5 mg/dL (06/17/23 7:44 PM) [place] Absolute [0.1-0.6 K/mcL] 0.6 K/mcL (06/17/23:44 PM) Albumin Level [3.5-5.0 g/dL] 4.1 g/dL (06/17/23:44 PM) Protein Total [6.5-8.1 g/dL] 6.9 g/dL (06/17/23 7:44 PM) MCH [27.0-31.0 pg] 28.4 pg (06/17/23:44 PM) Neutro Absolute [1.4-6.5 K/mcL] 5.9 K/mc L (06/17/23 7:44 PM) Bilirubin Total [0.2-1.2 mg/dL] 0.4 mg/d L (06/17/23 7:44 PM) Hgb [12.0-16.0 g/dL] 14.1 g/dL (06/17/23 7:44 PM) Alk Phos [38-130 IntlUnit/L] 76 IntlUnit /L (06/17/23 7:44 PM) MPV [7.4-10.4 fL] 10.3 fL (06/17/23 7:44 PM) Platelets [130-400 K/mcL] 267 K/mcL (06/17/23 7:44 PM) CO2 [22-32 mmol/L] 30 mmol/L (06/17/23 7:44 PM) Eos Absolute [0.0-0.2 K/mcL] 0.2 K/mcL (06/17/23 7:44 PM) Chloride Level [98-111 mmol/L] 104 mmol/ L (06/17/23 7:44 PM) RDW-CV [11.5-14.5 %] 13.6 % (06/17/23 7:44 PM) A/G Ratio [1.0-2.5 g/dL] 1.5 g/dL (06/17/23 7:44 PM) BUN/Creat Ratio [8.0-20.0] 38.5 *HI* (06/17/23 7:44 PM) Globulin [2.3-3.5 g/dL] 2.8 g/dL (06/17/23 7:44 PM) Imm Gran Absolute [0.00-0.02 K/mcL] 0.05 K/mcL *HI* (06/17/23 7:44 PM) Imm Gran Auto [0.0-0.5 %] 0.5 % (06/17/23 7:44 PM) Creatinine Level [0.44-1.00 mg/dL] 0.65 mg/dL (06/17/23 7:44 PM) Anion Gap [3.0-12.0] 7.0 (06/17/23 7:44 PM) Eos, Auto [0.00-3.00 %] 2.40 % (06/17/23 7:44 PM) eGFR CKD-EPI [>=60 mL/min/1.73 m2] 103 m L/min/1.73 m2 (06/17/23 7:44 PM) 1Interpretive Data: U-xqpsse-y-benzoquinone imine (meabolite of Acetaminophen) will generate erroneously low lipase results in samples for patients that have taken toxic doses of acetaminophen. Radiology Reports * Exam Date Time Procedure Performing Provider Status 06/17/23 8:[address] Abdomen and Pelvi s w/ Contrast Marilyn Joe; Auth (Verified) Notes: (CT Abdomen and Pelvis w/ Contrast) Reason For Exam: abd pain CT Abdomen and Pelvis w/ Contrast PROCEDURE INFORMATION: Exam: CT Abdomen And Pelvis With Contrast Exam date and time: 06/17/2023 8:19 PM Age: 58 years old Clinical indication: Abdominal pain; Flank; Right upper quadrant (ruq); Additional info: Abd pain TECHNIQUE: Imaging protocol: Computed tomography of the abdomen and pelvis with contrast. Radiation optimization: All CT scans at this facility use at least one of these dose optimization techniques: automated exposure control; mA and/or kV adjustment per patient size (includes targeted exams where dose is matched to clinical indication); or iterative reconstruction. Contrast material: ISOVUE 300; Contrast volume: 100 ml; Contrast route: INTRAVENOUS (IV); REPORTING DATA: Count of CT and Cardiac NM exams in prior 12 months: This patient has received 0 known CTs and 0 known cardiac nuclear medicine studies in the 12 months prior to the current study. COMPARISON: CT CHEST W CONTRAST 05/27/2021 2:39 PM FINDINGS: Lungs: There is minor basilar interstitial scarring bilaterally. Liver: The liver is normal in size and density. There is no discrete liver mass. Gallbladder and bile ducts: Completely contracted gallbladder. No bile duct dilatation. Pancreas: Normal pancreas. Spleen: Normal spleen. Adrenal glands: Normal. No mass. Kidneys and ureters: Both kidneys are morphologically normal. There are no renal masses. There is no hydronephrosis on either side. Stomach and bowel: Moderately distended stomach full of ingested food and fluid. There is no dilatation of the duodenum or small bowel. The colon contains a moderate volume of fecal material and gas. There is no colon wall thickening. Appendix: The appendix is not visualized. There is no pericecal inflammation. Intraperitoneal space: No ascites or free intraperitoneal air. Vasculature: Normal caliber aorta and iliac arteries. Unremarkable IVC. Lymph nodes: There are no enlarged lymph nodes. Urinary bladder: Unremarkable urinary bladder. 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 Bones/joints: There is advanced lower lumbar spondylosis. There is narrowing of every lumbar intervertebral disc. There is a minor anterolisthesis of L4 on L5. There are no acute spinal, pelvic or proximal femoral fractures. Soft tissues: There is no ventral hernia. IMPRESSION: 1. There are no acute major organ abnormalities in the upper abdomen. The gallbladder is completely contracted. 2. The kidneys and ureters are normal as is the bladder. 3. Distended stomach full of ingested food and fluid. No dilatation of the duodenum or small bowel. The colon contains a moderate volume of formed fecal material. No colon wall thickening. The appendix is not identified. 4. Lumbar spondylosis as described above. There are no acute spinal, pelvic or proximal femoral abnormalities. THIS DOCUMENT HAS BEEN ELECTRONICALLY SIGNED BY YAN RODRÍGUEZ MD on 06/17/2023 09:29 PM Final Signed by: Yan Rodríguez MD Signed (Electronic Signature): 06/17/2023 9:29 pm * Exam Date Time Procedure Performing Provider Status 06/17/23 8:[address] Neck Soft Tissue w/ Contrast Marilyn Bush; Auth (Verified) Notes: (CT Neck Soft Tissue w/ Contrast) Reason For Exam: dysphagia/ left sided neck pain CT Neck Soft Tissue w/ Contrast PROCEDURE INFORMATION: Exam: CT Neck With Contrast Exam date and time: 06/17/2023 8:10 PM Age: 58 years old Clinical indication: Dysphagia / difficulty swallowing; Additional info: Dysphagia/ left sided neck pain TECHNIQUE: Imaging protocol: Computed tomography of the neck with contrast. Radiation optimization: All CT scans at this facility use at least one of these dose optimization techniques: automated exposure control; mA and/or kV adjustment per patient size (includes targeted exams where dose is matched to clinical indication); or iterative reconstruction. Contrast material: ISOVUE 300; Contrast volume: 100 ml; Contrast route: INTRAVENOUS (IV); REPORTING DATA: Count of CT and Cardiac NM exams in prior 12 months: This patient has received 0 known CTs and 0 known cardiac nuclear medicine studies in the 12 months prior to the current study. COMPARISON: CT CHEST W CONTRAST 05/27/2021 2:39 PM FINDINGS: Pharynx: Unremarkable. No significant tonsillar enlargement. Larynx: Unremarkable. Epiglottis is normal. Prevertebral and retropharyngeal spaces: Unremarkable. Salivary glands: Normal. Glands are normal in size. Thyroid: Normal. No enlarged or calcified nodules. Lymph nodes: Unremarkable. No lymphadenopathy. Trachea: Visualized trachea is unremarkable. Lungs: Moderate/severe emphysema. Bones/joints: Unremarkable. No acute fracture. Soft tissues: Unremarkable. No significant soft tissue swelling. IMPRESSION: No acute findings. THIS DOCUMENT HAS BEEN ELECTRONICALLY SIGNED BY SHIVA MATHIS MD on 06/17/2023 09:21 PM Final Signed by: Shiva Mathis MD Signed (Electronic Signature): 06/17/2023 9:21 pm Vital Signs Most recent to oldest [Reference Range]: 1 Temperature Temporal Artery [36-38 Deg C ] 36.9 Deg C (06/17/23 6:56 PM) Peripheral Pulse Rate [60-100 bpm] 106 b pm *HI* (06/17/23 6:56 PM) Respiratory Rate [12-24 br/min] 16 br/mi n (06/17/23 6:56 PM) Blood Pressure [90-140/60-90 mmHg] 148/8 8mmHg *HI* (06/17/23 6:56 PM) Mean Arterial Pressure, Cuff [65-140 mmH g] 108 mmHg (06/17/23 6:56 PM) Weight 70.00 kg (06/17/23 6:56 PM) Weight Dosing 70.00 kg (06/17/23 7:12 PM) Height 170.000 cm (06/17/23 6:56 PM) Height/Length Dosing 170.000 cm (06/17/23 7:12 PM) Body Mass Index 24.000 kg/m2 (06/17/23 6:56 PM) Social History Social History Type Response Tobacco Current everyday tob acco user Tobacco Use:. Sex Hospital Discharge Instructions Patient Education 06/17/2023 20:36:23 Constipation, Adult Constipation, Adult Constipation is when a person has fewer than three bowel movements in a week, has difficulty havinga bowel movement, or has stools (feces) that are dry, hard, or larger than normal. Constipation maybe caused by an underlying condition. It may become worse with age if a person takes certain medicines and does not take in enough fluids. Follow these instructions at home: Eating and drinking ??? Eat foods that have a lot of fiber, such as beans, whole grains, and fresh fruits and vegetables. ??? Limit foods that are low in fiber and high in fat and processed sugars, such as fried or sweet foods. These include south african fries, hamburgers, cookies, candies, and soda. ??? Drink enough fluid to keep your urine pale yellow. General instructions ??? Exercise regularly or as told by your health care provider. Try to do 150 minutes of moderate exercise each week. ??? Use the bathroom when you have the urge to go. Do not hold it in. ??? Take wrkw-hac-chhpbri and prescription medicines only as told by your health care provider. This includes any fiber supplements. ??? During bowel movements: ??? Practice deep breathing while relaxing the lower abdomen. ??? Practice pelvic floor relaxation. ??? Watch your condition for any changes. Let your health care provider know about them. ??? Keep all follow-up visits as told by your health care provider. This is important. Contact a health care provider if: ??? You have pain that gets worse. ??? You have a fever. ??? You do not have a bowel movement after 4 days. ??? You vomit. ??? You are not hungry or you lose weight. ??? You are bleeding from the opening between the buttocks (anus). ??? You have thin, pencil-like stools. Get help right away if: ??? You have a fever and your symptoms suddenly get worse. ??? You leak stool or have blood in your stool. ??? Your abdomen is bloated. ??? You have severe pain in your abdomen. ??? You feel dizzy or you faint. Summary ??? Constipation is when a person has fewer than three bowel movements in a week, has difficulty having a bowel movement, or has stools (feces) that are dry, hard, or larger than normal. ??? Eat foods that have a lot of fiber, such as beans, whole grains, and fresh fruits and vegetables. ??? Drink enough fluid to keep your urine pale yellow. ??? Take qpko-wdf-vazhnwx and prescription medicines only as told by your health care provider. This includes any fiber supplements. This information is not intended to replace advice given to you by your health care provider. Make sure you discuss any questions you have with your health care provider. Document Revised: 06/30/2020 Document Reviewed: 06/30/2020 [employer] Patient Education ?? 2022 [employer] (formerly [employer]). Follow Up Care 06/17/2023 18:56:51 With:Follow up with primary care provider Address:Unknown When:1 month With:Drink Fluids Address:Unknown When:1 month Emergency department Discharge instructions * BIANCA Philip: PERFORM Event Display: ED Discharge Information Authored Date: [id number] JUSTINO ZABALA :1965 Age:58 years Sex:Female Visit Date:06/17/2023 Discharge Instructions We would like to thank you for allowing us to assist you with your healthcare needs. The following includes patient education materials and information regarding your injury/illness. Diagnosis from Today's Visit Constipation in female Indigestion Discharge Vitals Temperature??(Temporal Artery) 98.4 ??F (36.9 ??C) Heart Rate??(Peripheral) 106 Respiratory Rate?? 16 Blood Pressure?? 148/88?? Height?? 66.93 in (170.000 cm) Weight?? 154.35 lb (70.00 kg) BMI?? 24.000 Allergies aspirin What to Do Next Instructions from Your Care Team Your lab work was reassuring today. ??CT of the neck showed no acute abnormalities??and the CT of the abdomen showed a??moderate amount of stool which is consistent with constipation.?? Please??starton a MiraLAX and a stool softener??as well as stay well-hydrated and eat smaller meals throughout the day. ??Please follow-up with your PCP and return to the emergency department with any worsening of symptoms. You Need to Schedule the Following Appointments Follow Up with??Follow up with primary care provider When:??Within 1 month Follow Up with??Drink Fluids When:??Within 1 month You were treated today on an emergency [...] MEALS AND AT BEDTIME ?? Education Materials Constipation, Adult Constipation is when a person has fewer than three bowel movements in a week, has difficulty havinga bowel movement, or has stools (feces) that are dry, hard, or larger than normal. Constipation maybe caused by an underlying condition. It may become worse with age if a person takes certain medicines and does not take in enough fluids. Follow these instructions at home: Eating and drinking ? Eat foods that have a lot of fiber, such as beans, whole grains, and fresh fruits and vegetables. ? Limit foods that are low in fiber and high in fat and processed sugars, such as fried or sweet foods. These include south african fries, hamburgers, cookies, candies, and soda. ? Drink enough fluid to keep your urine pale yellow. General instructions ? Exercise regularly or as told by your health care provider. Try to do 150 minutes of moderate exercise each week. ? Use the bathroom when you have the urge to go. Do not hold it in. ? Take lwju-ine-rszgpee and prescription medicines only as told by your health care provider. This includes any fiber supplements. ? During bowel movements: ? Practice deep breathing while relaxing the lower abdomen. ? Practice pelvic floor relaxation. ? Watch your condition for any changes. Let your health care provider know about them. ? Keep all follow-up visits as told by your health care provider. This is important. Contact a health care provider if: ? You have pain that gets worse. ? You have a fever. ? You do not have a bowel movement after 4 days. ? You vomit. ? You are not hungry or you lose weight. ? You are bleeding from the opening between the buttocks (anus). ? You have thin, pencil-like stools. Get help right away if: ? You have a fever and your symptoms suddenly get worse. ? You leak stool or have blood in your stool. ? Your abdomen is bloated. ? You have severe pain in your abdomen. ? You feel dizzy or you faint. Summary ? Constipation is when a person has fewer than three bowel movements in a week, has difficulty havinga bowel movement, or has stools (feces) that are dry, hard, or larger than normal. ? Eat foods that have a lot of fiber, such as beans, whole grains, and fresh fruits and vegetables. ? Drink enough fluid to keep your urine pale yellow. ? Take gspt-pfb-cvuxezs and prescription medicines only as told by your health care provider. This includes any fiber supplements. This information is not intended to replace advice given to you by your health care provider. Make sure you discuss any questions you have with your health care provider. Document Revised: 06/30/2020 Document Reviewed: 06/30/2020 Elsevier Patient Education ?? 2022 [employer] Tests Performed Radiology CT Abdomen and Pelvis w/ Contrast 06/17/2023 21:[address] Neck Soft Tissue w/ Contrast 06/17/2023 21:22 EDT Medications and Immunizations Administered Given ondansetron, 4 mg, Oral Lab Test Name Test Result Date/Time WBC 9.2 K/mcL 06/17/2023 19:44 EDT RBC 4.96 Million/mcL 06/17/2023 19:44 EDT Hgb 14.1 g/dL 06/17/2023 19:44 EDT Hct 44.6 % 06/17/2023 19:44 EDT MCV 89.9 fL 06/17/2023 19:44 EDT MCH 28.4 pg 06/17/2023 19:44 EDT MCHC 31.6 g/dL 06/17/2023 19:44 EDT RDW-CV 13.6 % 06/17/2023 19:44 EDT Platelets 267 K/mcL 06/17/2023 19:44 EDT MPV 10.3 fL 06/17/2023 19:44 EDT Neutro Auto 64.8 % 06/17/2023 19:44 EDT Lymph Auto 25.9 % 06/17/2023 19:44 EDT [place] Auto 6.0 % 06/17/2023 19:44 EDT Eos, Auto 2.40 % 06/17/2023 19:44 EDT Basophil Auto 0.4 % 06/17/2023 19:44 EDT Imm Gran Auto 0.5 % 06/17/2023 19:44 EDT Neutro Absolute 5.9 K/mcL 06/17/2023 19:44 EDT Lymph Absolute 2.4 K/mcL 06/17/2023 19:44 EDT [place] Absolute 0.6 K/mcL 06/17/2023 19:44 EDT Eos Absolute 0.2 K/mcL 06/17/2023 19:44 EDT Baso Absolute 0.0 K/mcL 06/17/2023 19:44 EDT Imm Gran Absolute 0.05 K/mcL 06/17/2023 19:44 EDT Sodium Level 141 mmol/L 06/17/2023 19:44 EDT Potassium Level 4.0 mmol/L 06/17/2023 19:44 EDT Chloride Level 104 mmol/L 06/17/2023 19:44 EDT CO2 30 mmol/L 06/17/2023 19:44 EDT Alk Phos 76 IntlUnit/L 06/17/2023 19:44 EDT AST 15 IntlUnit/L 06/17/2023 19:44 EDT ALT 21 IntlUnit/L 06/17/2023 19:44 EDT BUN 25 mg/dL 06/17/2023 19:44 EDT Glucose Level 115 mg/dL 06/17/2023 19:44 EDT Creatinine Level 0.65 mg/dL 06/17/2023 19:44 EDT BUN/Creat Ratio 38.5 06/17/2023 19:44 EDT eGFR CKD-EPI 103 mL/min/1.73 m2 06/17/2023 19:44 EDT Calcium Level 9.5 mg/dL 06/17/2023 19:44 EDT Protein Total 6.9 g/dL 06/17/2023 19:44 EDT Albumin Level 4.1 g/dL 06/17/2023 19:44 EDT Globulin 2.8 g/dL 06/17/2023 19:44 EDT A/G Ratio 1.5 g/dL 06/17/2023 19:44 EDT Bilirubin Total 0.4 mg/dL 06/17/2023 19:44 EDT Anion Gap 7.0 06/17/2023 19:44 EDT Lipase Level 32 unit/L 06/17/2023 19:44 EDT Osmolality 287 mOsm/kg 06/17/2023 19:44 EDT Patient/Undercoater Signature Patient Name:HAYDENKostas JUSTINO R I have received this information and my questions have been answered. Patient/Undercoater Name: Patient/Undercoater Signature: Relationship to Patient: Witness Name/Signature: Date: Electronically Signed on: 06/17/2023 21:37 EDTSigned by:MORE Patient Care team information Care Team Personnel Name: Ashly Ness Position: Nurse Member Role: ED Nurse Name: BIANCA Philip Position: Physician Member Role: Physician Address: Address: [address] [place] [address]
[2023-09-06 12:10] VITALS: BP 153/84; PULSE 89; RESP 18; TEMP 36.4; O2SAT 97
[2023-09-06 12:29] LABS: Bilirubin Negative (Negative); Blood Negative (Negative); Clarity Clear (Clear); Glucose Negative (Negative); Ketones Negative (Negative); Leukocyte Esterase Negative (Negative); Nitrite Negative (Negative); Specific Gravity 1.015 (1.005-1.025); Urobilinogen 0.2 mg/dL (Up to 0.2)
--- NOTE | 2023-09-06 13:49 | NUR.NOTE ---
Patient stated to Access that she had another appt and was leaving. Asked about her urine results, she was told to call us back if she wants them. Nursing Note:
--- NOTE | 2023-09-06 13:51 | NUR.NOTE ---
Patient stated to Access that she had another appt and was leaving. Asked about her urine results, she was told to call us back if she wants them.Nursing Note:
--- NOTE | 2023-09-06 15:48 | NUR.NOTE ---
Nursing Note: Patient LWBS. We were able to test her urine. Patient called for results on the urine. Dr. Juarez reviewed results. Urine showed no signs of an infection. Patient given the results
== END 2023-09-06 13:48 | disposition left against medical advice (07) ==
PROVIDERS: PCP Nurse Practitioner
DX: Z53.21 Procedure and treatment not carried out due to patient leaving prior to being seen by health care provider (principal)
CPT/HCPCS: 81003

== ENCOUNTER 2025-04-23 18:42 | Outpatient (REF) | payer MEDICARE, MEDICAID, SELFPAY ==
[2025-04-23 15:56] LABS: Abs Immature Grans 0.01 10^3/uL (0.0-0.06); HCT 41.6 % (36.0-46.0); HGB 12.9 g/dL (11.2-15.7); Immature Grans % 0.2 %; MCH 27.5 pg (27.0-33.0); MCHC 31.0 % (32.0-36.0); MCV 89 fL (80-95); MPV 11.2 fL (8.0-11.0); Platelet Count 207 10^3/uL (130-400); RBC 4.69 10^6/uL (3.93-5.22); RDW 13.3 % (11.7-14.6); RDW-SD 43.0 fL; WBC 5.67 10^3/uL (4.4-10.8)
[2025-04-23 16:19] LABS: Hemoglobin A1C 5.7 % (<5.7)
[2025-04-23 16:27] LABS: ALT 32 U/L (14-59); AST 16 U/L (15-37); Albumin 4.1 g/dL (3.4-5.0); Alkaline Phosphatase 90 U/L (46-116); Anion Gap 5.4 mmol/L (3-11); BUN 6 mg/dL (7-18); Bilirubin, Total 0.3 mg/dL (0.2-1.0); CO2 32.6 mmol/L (21.0-32.0); Calcium 9.1 mg/dL (8.5-10.1); Calculated LDL 97 mg/dL (<100); Chloride 104 mmol/L (98-107); Cholesterol 180 mg/dL (<200); Estimated GFR 103.98 (mL/min/1.73m2); Glucose 103 mg/dL (74-106); HDL Cholesterol 72 mg/dL (>or=50); Potassium 4.3 mmol/L (3.5-5.1); Sodium 142 mmol/L (136-145); TSH 1.02 uIU/mL (0.36-3.74); Total Protein 6.8 g/dL (6.4-8.2); Triglyceride 55 mg/dL (<150)
== END 2025-04-23 18:43 | disposition home or self-care (01) ==
LOC: NCHCN 18:42
PROVIDERS: Visit Provider Family Medicine
DX: J43.1 Panlobular emphysema (principal); Z13.1 Encounter for screening for diabetes mellitus; Z13.29 Encounter for screening for other suspected endocrine disorder; Z13.220 Encounter for screening for lipoid disorders
CPT/HCPCS: 80053; 80061; 83036; 84443; 85025

== ENCOUNTER 2025-07-13 21:03 | Inpatient (IN) | payer MEDICARE, MEDICAID, SELFPAY ==
[2025-07-13] VITALS (11 sets, daily range): BP systolic 108; BP diastolic 86; PULSE 85–107; RESP 14–20; TEMP 36.4; O2SAT 93–100
--- NOTE | 2025-07-13 20:45 | RT.EKG_ITS ---
APPROVED REPORT Exam: Resting ECG Reason for Exam: chest pain Patient Location: E HR:102 bpm ECG Measurements Heart Rate [address] 143 P 86 QRSd 78 QRS 76 QT 376 T 70 QTc 490 Conclusion Sinus tachycardia...rate> 99 Probable left atrial enlargement...P >50mS, <-0.10mV V1 Anterior infarct, old...Q >40mS, abnormal ST-T, V2-V5 No STEMI
--- NOTE | 2025-07-13 20:45 | DI.RAD_ITS ---
Exam(s) XR PORTABLE CHEST AP EXAM: XR PORTABLE CHEST AP CLINICAL HISTORY: chest pain TECHNIQUE: 2D digital imaging was performed. COMPARISON: CR XR CHEST 2V PA LATERAL from 11/18/2018 FINDINGS: LUNGS: Emphysematous changes greater at the upper lobes. Bibasilar scarring, roughly stable.. No pleural abnormality seen. HEART: Normal size. AORTA: Normal diameter. BONES: Scoliosis. Soft tissues: Unremarkable. IMPRESSION: Bibasilar scarring/atelectasis. No acute findings. The preliminary [facility] report was reviewed. DATA REPOSITORY: RADIATION DOSE DELIVERED:
[2025-07-13 21:16] LABS: Abs Immature Grans 0.04 10^3/uL (0.0-0.06); BE (Venous) 5 mmol/L (-2-3); HCO3 (Venous) 31 mmol/L (23-28); HCT 45.2 % (36.0-46.0); HGB 14.1 g/dL (11.2-15.7); Immature Grans % 0.4 %; MCH 27.1 pg (27.0-33.0); MCHC 31.2 % (32.0-36.0); MCV 87 fL (80-95); MPV 10.0 fL (8.0-11.0); O2 Sat (Venous) 40 %; Platelet Count 226 10^3/uL (130-400); RBC 5.20 10^6/uL (3.93-5.22); RDW 13.0 % (11.7-14.6); RDW-SD 41.1 fL; TCO2 (Venous) 28 mmol/L (24-29); WBC 10.11 10^3/uL (4.4-10.8); pCO2 (Venous) 59 mmHg (41-51); pO2 (Venous) 24 mmHg
[2025-07-13 21:35] LABS: ALT 21 U/L (10-49); AST 18 U/L (<34); Albumin 4.6 g/dL (3.4-5.0); Alkaline Phosphatase 83 U/L (46-116); Anion Gap 7.3 mmol/L (3-11); BUN 16 mg/dL (9-23); Bilirubin, Total 0.40 mg/dL (0.2-1.2); CO2 30.7 mmol/L (20.0-31.0); Calcium 9.1 mg/dL (8.3-10.6); Chloride 102 mmol/L (98-107); Glucose 126 mg/dL (74-106); Magnesium 1.8 mg/dL (1.6-2.6); Potassium 3.5 mmol/L (3.5-5.1); Sodium 140 mmol/L (136-145); Total Protein 7.3 g/dL (5.7-8.2)
[2025-07-13 21:36] LABS: Troponin I < 3 ng/L (<35)
[2025-07-13 21:39] LABS: INR 1.0 (0.9-1.1); PTT Activated 23.9 sec (20.6-30.2); Prothrombin Time 9.6 sec (9.1-11.1)
[2025-07-13] MEDS: Droperidol 5 MG/2 ML VIAL 2.5 MG IVP (21:40)
[2025-07-13] MEDS: Normal Saline 1,000 ML 1000 ML IV (21:41)
--- NOTE | 2025-07-13 21:45 | DI.RAD_ITS ---
Exam(s) XR PELVIS AP EXAM: XR PELVIS AP CLINICAL HISTORY: left hip pain s/p fall. TECHNIQUE: 2D digital imaging was performed. Single AP view. FINDINGS: BONES: No acute fracture is present. No bony destructive lesion is seen. JOINTS: No dislocation present. There are mild to moderate degenerative changes of the left hip. Right hip joint space is maintained. SOFT TISSUE: Normal. IMPRESSION: No acute abnormality. The preliminary [facility] report was reviewed. DATA REPOSITORY: RADIATION DOSE DELIVERED:
--- NOTE | 2025-07-13 21:50 | DI.[facility]AD_ITS ---
PROCEDURE INFORMATION: Exam: XR Chest Exam date and time: 07/13/2025 9:27 PM Age: 60 years old Clinical indication: Other: Chest pain TECHNIQUE: Imaging protocol: Radiologic exam of the chest. Views: 1 view. COMPARISON: CR XR CHEST 2V PA LATERAL 11/18/2018 3:52 PM FINDINGS: Lungs: Bibasilar scarring/subsegmental atelectatic changes. Pleural spaces: Unremarkable. No pleural effusion. No pneumothorax. Heart/Mediastinum: Unremarkable. No cardiomegaly. Bones/joints: Unremarkable. IMPRESSION: Bibasilar subsegmental atelectatic changes/scarring. Dictated and Authenticated by: Mynor Pedraza MD. Orderin Ellis Sloan MD
--- NOTE | 2025-07-13 22:15 | DI.CT_ITS ---
Exam(s) CT CHEST PE CTA EXAM: CT CHEST PE CTA CLINICAL HISTORY: tachycardia, elevated d-dimer. TECHNIQUE: Imaging Protocol: Axial CT angiography was performed with multi- slice acquisition and multi-planar reconstructions as well as axial, coronal and sagittal MIP reconstructions. Computer aided detection (CAD) was utilized. CONTRAST MATERIAL: Intravenous: Omnipaque 350 Contrast volume:75 ml COMPARISON: CR CHEST 2 VIEWS PA,LAT from 05/29/2015 CR XR CHEST 2V PA LATERAL from 11/18/2018 CR,XR XR PORTABLE CHEST AP from 07/13/2025 FINDINGS: Pulmonary Arteries: Prominent. No evidence of filling defect to suggest pulmonary emboli. Mediastinum and Leanna: No dominant adenopathy or fluid collection. Pulmonary parenchyma: Mildly limited evaluation due to respiratory motion. Severe centrilobular emphysematous changes, greater in the upper lobes. Scarring noted in the lung bases. small superimposed right posterior basilar infiltrate. Calcified nodule in the left upper lobe consistent with a granu ben. Other calcified tiny nodules also seen. Area of scarring versus nodularity at the left lung apex. No consolidation or dominant measurable mass. Pleura: No effusion or pneumothorax. Heart: The heart is not dilated. Mild coronary artery calcifications are seen. Aorta: Thoracic aorta non-dilated. No dissection. Upper abdomen: No acute findings. Bones: Unremarkable for age. Tubes, Catheters, and Lines: None Soft tissues: Unremarkable. IMPRESSION: No evidence of pulmonary embolism. Severe underlying emphysematous changes. Findings suspicious for pneumonia at the right lung base. 8 millimeter nodule versus scarring at the left lung apex. [address] recommended in the absence of previous examinations. Unexpected findings The preliminary [facility] report was reviewed. RADIATION DOSE DELIVERED: 71.8mGy.cm Total DLP DATA REPOSITORY: All CT scans at this facility are submitted to the National Radiology Data Registry (NRDR) Dose Index Registry (DIR) with the [employer] (A[employer]). RADIATION OPTIMIZATION: All CT scans at this facility use at least one of these dose optimization techniques: automated exposure control; mA and/or kV adjustment per patient size (includes targeted exams where dose is matched to clinical indication); or iterative reconstruction.
[2025-07-13 22:17] LABS: D-Dimer 586 ng/mlFEU (<500)
[2025-07-13] MEDS: Omnipaque 350 MG/ML 100 ML BTL IJ (22:42)
[2025-07-13] MEDS: Normal Saline - Diluent 50 ML VIAL IJ (22:42)
[2025-07-13] MEDS: Normal Saline Flush 10 ML SYR IVP (22:43)
--- NOTE | 2025-07-13 22:49 | W.ED.GENAD ---
Discharge Plan Disposition Patient Disposition: Admit to [facility] Discharge Details Primary Care Provider: Oz Zhao ED Provider: Luther Corral Home Meds and New Rx's Prescriptions: No Action omeprazole 40 mg capsule,delayed release(DR/EC) 40 mg PO DAILY methylphenidate HCl 10 MG tablet 15 mg PO TID clonazepam [Klonopin] 1 MG tablet 1 mg PO TID montelukast [Singulair] 10 MG tablet 10 mg PO DAILY AM rabeprazole [AcipHex] 20 MG tablet,delayed release (DR/EC) 20 mg PO DAILY ibuprofen [I-Prin] 200 MG tablet 800 mg PO TID PRN PRN albuterol sulfate [ProAir HFA] 200 PUFF HFA aerosol inhaler 2 puff Inhalation Q4H PRN PRN Patient Comments: 05/28/15-Patient says that her provider refuses to refill. LP fluticasone propion-salmeterol [Advair Diskus] 1 EACH blister with device 2 ea Inhalation BID Combivent Respimat 1 PUFF mist 2 puff Inhalation BID pantoprazole 40 mg tablet,delayed release (DR/EC) PO Patient Comments: TAKE 1 TABLET BY MOUTH EVERY DAY HPI General Date/Time Provider Initiated Documentation: 07/13/25 21:21. HPI Narrative: MDM/Narrative: 60-year-old female past medical history of COPD, migraine, presents for evaluation of headache, chest pain. Vital signs notable for mild tachycardia. Physical exam is notable for no wheezing, no focal neurologic deficits. Will screen for ACS/PE, as well as pneumonia pneumothorax. Will treat patient's headache, will consider neurologic imaging if patient's headache does not improve however, presentation is consistent with migraine. ED course: Labs notable for elevated D-dimer as such we will obtain CT imaging of chest. Troponins otherwise negative, patient reportedly borderline leukocytosis with notable neutrophilic predominance. CT imaging shows no acute pulmonary embolism however there is evidence of right basilar infiltrate. In the setting of borderline leukocytosis with neutrophilic predominance tachycardia and tachypnea with increasing oxygen requirements will consider this consistent with clinical picture of pneumonia. Will treat patient with ceftriaxone and doxycycline. Plan to admit patient for further management. Blood cultures ordered prior to antibiotic administration. Case discussed with Dr. Cedeno who is agreeable to plan for admission. Disposition: Admit to [facility] HPI: 60-year-old female past medical history of COPD, migraine, presents for multiple complaints. She notes a 5-day history of right sided headache radiating from her right maxillary sinus. She notes this is typical of prior migraines in the past and is concerned that she may have a sinus infection. Denies any associated fever, chills or purulent discharge from the nose. She also notes chest pain, which began tonight. She states that she has been using her home oxygen more often recently, describes the pain as a tightness similar to past COPD exacerbations. Denies any associated leg swelling, fever, chills change in cough or any other new or concerning symptoms. Patient also notes chronic left hip pain which he ascribes to from a fall which occurred approximately 5 months ago. ROS: Negative besides as mentioned above Exam: Gen: A&O NAD HEENT: NCAT, EOMI, not icteric. External ears normal. No rhinorrhea. Moist mucous membranes. Neck: Supple, full range of motion, no observable masses, No meningeal sign. Lungs: No Respiratory distress. CV: RRR, no edema. Abdomen: Soft, nondistended, No rebound tenderness. MSK: No joint swelling, no redness. Skin: No rashes, petechiae, lesions. Normal color per patient. Neuro: Normal Gait, Grossly intact. Psych: Appropriate for situation. Rhythm: Sinus tachycardia Rate:102 [place]: Normal axis Intervals: Normal intervals Other findings: No acute ST segment or T wave changes to suggest acute ischemia. Labs: Laboratory Tests Range/Units 07/13/25 07/13/25 07/13/25 21:10 22:30 23:57 WBC (4.4-10.8) 10^3/uL 10.11 RBC (3.93-5.22) 10^6/uL 5.20 Hgb (11.2-15.7) g/dL 14.1 Hct (36.0-46.0) % 45.2 MCV (80-95) fL 87 MCH (27.0-33.0) pg 27.1 MCHC (32.0-36.0) % 31.2 L RDW (11.7-14.6) % 13.0 Plt Count (130-400) 10^3/uL 226 MPV (8.0-11.0) fL 10.0 Immature Gran % % 0.4 Neutrophils % % 72.4 Lymphocytes % % 16.6 Monocytes % % 5.5 Eosinophils % % 4.5 Basophils % % 0.6 Nucleated RBC % (0.0-0.3) % 0.0 Absolute Neutrophils (1.2-6.7) 10^3/uL 7.31 H Absolute Lymphocytes (1.2-3.4) 10^3/uL 1.68 Absolute Monocytes (0.1-0.8) 10^3/uL 0.56 Absolute Eosinophils (0.0-0.7) 10^3/uL 0.46 Absolute Basophils (0.0-0.2) 10^3/uL 0.06 PT (9.1-11.1) sec 9.6 INR (0.9-1.1) 1.0 APTT (20.6-30.2) sec 23.9 D-Dimer (<500) ng/mlFEU 586 H VBG pH (7.31-7.41) 7.33 VBG pCO2 (41-51) mmHg 59 H VBG pO2 mmHg 24 VBG HCO3 (23-28) mmol/L 31 H VBG Total CO2 (24-29) mmol/L 28 VBG O2 Saturation % 40 VBG Base Excess (-2-3) mmol/L 5 H VBG Lactate (<or=2.0) mmol/L 1.2 Sodium (136-145) mmol/L 140 Potassium (3.5-5.1) mmol/L 3.5 Chloride (98-107) mmol/L 102 Carbon Dioxide (20.0-31.0) mmol/L 30.7 Anion Gap (3-11) mmol/L 7.3 BUN (9-23) mg/dL 16 Creatinine (0.55-1.02) mg/dL 0.8 Est GFR (CKD-EPI 2020) (mL/min/1.73m2) 79.06 Glucose (74-106) mg/dL 126 H Calcium (8.3-10.6) mg/dL 9.1 Magnesium (1.6-2.6) mg/dL 1.8 Total Bilirubin (0.2-1.2) mg/dL 0.40 AST (<34) U/L 18 ALT (10-49) U/L 21 Alkaline Phosphatase (46-116) U/L 83 Troponin I (<35) ng/L < 3 < 3 Cancelled NT-Pro-B Natriuret Pep (<300) pg/mL < 35 Total Protein (5.7-8.2) g/dL 7.3 Albumin (3.4-5.0) g/dL 4.6 Radiology: PROCEDURE INFORMATION: Exam: XR Pelvis Exam date and time: 07/13/2025 10:26 PM Age: 60 years old Clinical indication: Left hip; L hip pain S/P fall TECHNIQUE: Imaging protocol: Radiologic exam of the pelvis. Views: 1 or 2 view. COMPARISON: No relevant prior studies available. FINDINGS: Bones/joints: No acute fracture or dislocation. No suspicious bony lesions. Soft tissues: Unremarkable. IMPRESSION: 1. No acute radiographic findings. 2. If pain persists, consider CT of the pelvis or repeat imaging in 5-7 days to exclude occult fracture. Thank you for allowing us to participate in the care of your patient PROCEDURE INFORMATION: Exam: CTA Chest With Contrast Exam date and time: 07/13/2025 10:40 PM Age: 60 years old Clinical indication: Other: Tachycardia, elevated d-dimer; Prior surgery; Surgery date: 6+ months; Surgery type: Lumpectomy L breast TECHNIQUE: Imaging protocol: Computed tomographic angiography of the chest with contrast. Exam focused on the arteries. 3D rendering (Not supervised by radiologist): MIP and/or 3D reconstructed images were created by the technologist. Radiation optimization: All CT scans at this facility use at least one of these dose optimization techniques: automated exposure control; mA and/or kV adjustment per patient size (includes targeted exams where dose is matched to clinical indication); or iterative reconstruction. Contrast material: OMNIPAQUE 350; Contrast volume: 75 ml; Contrast route: INTRAVENOUS (IV); COMPARISON: CR XR PORTABLE CHEST AP 07/13/2025 9:27 PM FINDINGS: Pulmonary arteries: No acute pulmonary embolus. Aorta: Unremarkable. No aortic aneurysm. No aortic dissection. Lungs: There is severe centrilobular emphysema with an apical predominance. Consolidative pulmonary radiopacities are present in the dependent right lower lobe. A spiculated 0.8 cm mass is present within the left upper lobe. Pleural spaces: Unremarkable. No pneumothorax. No pleural effusion. Heart: Heart is normal size. No pericardial effusion. Coronary arteries: There are scattered atheromatous coronary artery calcifications. Lymph nodes: No enlarged lymph nodes. JUSTINO ZABALA Preliminary Radiology Report FIRE SPRINKLER INSPECTOR (QA) DISCREPANCY? If there is a discrepancy between the preliminary and final interpretation, please notify [facility] via [email or web address]. If you do not have access to our QA portal, call our QA team at [phone] CONFIDENTIALITY STATEMENT This report is intended only for the use of the referring physician, and only in accordance with law, If you received this in error, call [phone] Page 2 of 2 Bones/joints: Bones have a normal appearance. No acute fracture or suspicious bone lesion. Soft tissues: Unremarkable. IMPRESSION: 1. No pulmonary embolus. 2. Right basilar pulmonary radiopacities suspicious for lobar pneumonia. Differential considerations include aspiration. Short interval follow-up is recommended to exclude underlying pulmonary pathology. 3. Spiculated left upper lobe pulmonary nodule. Short interval 3-6 month follow-up recommended to further characterize this finding. Alternatively, prior studies could be used if available for comparison and interval growth over time. Thank you for allowing us to participate in the care of your patient. Dictated and Authenticated by: Hilaria Potts MD 07/13/2025 11:01 PM Eastern Time ([place] & [place]) Related Data Home Medications ?Medication ?Instructions ?Recorded ?Confirmed clonazepam 1 mg tablet (Klonopin) 1 mg PO TID 03/17/13 09/06/23 ibuprofen 200 mg tablet (I-Prin) 800 mg PO TID PRN PRN 03/17/13 09/06/23 methylphenidate HCl 10 mg tablet 15 mg PO TID 03/17/13 09/06/23 montelukast 10 mg tablet 10 mg PO DAILY AM 03/17/13 09/06/23 (Singulair) rabeprazole 20 mg tablet,delayed 20 mg PO DAILY 03/17/13 09/06/23 release (AcipHex) albuterol sulfate 90 mcg/actuation 2 puff inhalation Q4H PRN PRN 07/09/13 09/06/23 aerosol inhaler (ProAir HFA) fluticasone 500 mcg-salmeterol 50 2 ea inhalation BID 11/23/13 09/06/23 mcg/dose blistr powdr for inhalation (Advair Diskus) ipratropium 20 mcg-albuterol 100 2 puff inhalation BID 12/18/13 09/06/23 mcg/actuation mist for inhalation (Combivent Respimat) omeprazole 40 mg capsule,delayed 40 mg PO DAILY 04/05/21 09/06/23 release pantoprazole 40 mg tablet,delayed mg PO 09/06/23 release Allergies Allergy/AdvReac Type Severity Reaction Status Date / Time aspirin Allergy Severe Swelling/Ed Unverified 09/06/23 12:08 moy divalproex sodium (From Allergy Severe Swelling/Ed Unverified 09/06/23 12:08 Depakote) moy pneumococcal vaccine (From Allergy Severe Verified 09/06/23 12:08 Pneumovax-23) varenicline (From Chantix) Allergy Severe Verified 09/06/23 12:08 venom-honey bee (bee venom Allergy Severe Anaphylaxsi Unverified 09/06/23 12:08 (honey bee)) s influenza virus vaccine tv Allergy Mild Verified 09/06/23 12:08 split 2012- (5 yr,up) (From Afluria) latex Allergy Mild Hives Unverified 09/06/23 12:08 ranitidine Allergy Mild Verified 09/06/23 12:08 erythromycin base (From Allergy Unknown Verified 09/06/23 12:08 Erythrocin) ziprasidone HCl (From Geodon) AdvReac Intermediate muscle Unverified 09/06/23 12:08 tightness codeine AdvReac Mild gi Unverified 09/06/23 12:08 General Stated Complaint: Chest Pain JULIUS: 3 Course Vital Signs Vital signs: Vital Signs Temperature 36.4 C L 07/13/25 21:01 Pulse 107 H 07/13/25 21:01 Respiratory Rate 20 07/13/25 21:01 Blood Pressure 108/86 07/13/25 21:01 Pulse Oximetry 93 07/13/25 21:01 Temperature 36.4 C L 07/13/25 21:01 Pulse 107 H 07/13/25 21:01 Respiratory Rate 20 07/13/25 22:19 Respiratory Effort Normal, Non-Labored 07/13/25 22:19 Respiratory Depth Normal 07/13/25 22:19 Respiratory Pattern Normal 07/13/25 22:19 Blood Pressure 108/86 07/13/25 21:01 Pulse Oximetry 93 07/13/25 21:01 Oxygen Delivery Method Nasal Cannula 07/13/25 21:01 Oxygen Flow Rate 3 07/13/25 21:01 Pain Level 2 07/13/25 22:19 Lab/Test Results Lab/Test Results: Laboratory Tests Range/Units 07/13/25 21:10 WBC (4.4-10.8) 10^3/uL 10.11 RBC (3.93-5.22) 10^6/uL 5.20 Hgb (11.2-15.7) g/dL 14.1 Hct (36.0-46.0) % 45.2 MCV (80-95) fL 87 MCH (27.0-33.0) pg 27.1 MCHC (32.0-36.0) % 31.2 L RDW (11.7-14.6) % 13.0 Plt Count (130-400) 10^3/uL 226 MPV (8.0-11.0) fL 10.0 Immature Gran % % 0.4 Neutrophils % % 72.4 Lymphocytes % % 16.6 Monocytes % % 5.5 Eosinophils % % 4.5 Basophils % % 0.6 Nucleated RBC % (0.0-0.3) % 0.0 Absolute Neutrophils (1.2-6.7) 10^3/uL 7.31 H Absolute Lymphocytes (1.2-3.4) 10^3/uL 1.68 Absolute Monocytes (0.1-0.8) 10^3/uL 0.56 Absolute Eosinophils (0.0-0.7) 10^3/uL 0.46 Absolute Basophils (0.0-0.2) 10^3/uL 0.06 PT (9.1-11.1) sec 9.6 INR (0.9-1.1) 1.0 APTT (20.6-30.2) sec 23.9 D-Dimer (<500) ng/mlFEU 586 H VBG pH (7.31-7.41) 7.33 VBG pCO2 (41-51) mmHg 59 H VBG pO2 mmHg 24 VBG HCO3 (23-28) mmol/L 31 H VBG Total CO2 (24-29) mmol/L 28 VBG O2 Saturation % 40 VBG Base Excess (-2-3) mmol/L 5 H VBG Lactate (<or=2.0) mmol/L 1.2 Sodium (136-145) mmol/L 140 Potassium (3.5-5.1) mmol/L 3.5 Chloride (98-107) mmol/L 102 Carbon Dioxide (20.0-31.0) mmol/L 30.7 Anion Gap (3-11) mmol/L 7.3 BUN (9-23) mg/dL 16 Creatinine (0.55-1.02) mg/dL 0.8 Est GFR (CKD-EPI 2020) (mL/min/1.73m2) 79.06 Glucose (74-106) mg/dL 126 H Calcium (8.3-10.6) mg/dL 9.1 Magnesium (1.6-2.6) mg/dL 1.8 Total Bilirubin (0.2-1.2) mg/dL 0.40 AST (<34) U/L 18 ALT (10-49) U/L 21 Alkaline Phosphatase (46-116) U/L 83 Troponin I (<35) ng/L < 3 NT-Pro-B Natriuret Pep (<300) pg/mL < 35 Total Protein (5.7-8.2) g/dL 7.3 Albumin (3.4-5.0) g/dL 4.6 PFSH All Active Problems No-show for appointment (Acute) Obesity (Chronic) Depression with anxiety (Acute) Asthma (Chronic) GERD (gastroesophageal reflux disease) (Chronic) Hiatal hernia (Chronic) COPD (chronic obstructive pulmonary disease) (Chronic) Sleep apnea, obstructive (Chronic) Bee sting allergy (Acute) Dyspnea (Acute) Cough (Acute) Pain in breast (Acute) Chronic pain (Chronic) COPD with exacerbation (Acute) Tobacco use (Acute) Medical History (Updated 08/03/21 @ 15:19 by Parth Barcenas MD) History of posttraumatic stress disorder (PTSD) Breast cancer Allergic rhinitis Migraine Poor dentition Financial problems Candidiasis of skin Arm pain, left Surgical History (Updated 04/05/21 @ 12:20 by Lisette Villegas) History of carpal tunnel surgery History of lumpectomy of left breast Tennis Elbow (07/15/13) right Family History (Updated 04/05/21 @ 12:15 by Lisette Villegas) Father Hypertension Heart disease Diabetes Mother Emphysema lung COPD (chronic obstructive pulmonary disease) Maternal Aunt Breast cancer Dementia Cancer Social History (Updated 04/05/21 @ 12:18 by Lisette Villegas) Smoking/Tobacco Use Status: Current every day Tobacco Type: cigarettes Smoking risk assessment performed?: Yes Alcohol Intake: current Alcohol Intake frequency: holidays/special occasions only Drug use: Never Substance use type: does not use Housing: house In current or past relationships, have you been: hurt Do you feel safe in your relationship?: No
[2025-07-13 22:56] LABS: Troponin I < 3 ng/L (<35)
--- NOTE | 2025-07-13 23:01 | DI.[facility]_ITS ---
PROCEDURE INFORMATION: Exam: CTA Chest With Contrast Exam date and time: 07/13/2025 10:40 PM Age: 60 years old Clinical indication: Other: Tachycardia, elevated d-dimer; Prior surgery; Surgery date: 6+ months; Surgery type: Lumpectomy L breast TECHNIQUE: Imaging protocol: Computed tomographic angiography of the chest with contrast. Exam focused on the arteries. 3D rendering (Not supervised by radiologist): MIP and/or 3D reconstructed images were created by the technologist. Radiation optimization: All CT scans at this facility use at least one of these dose optimization techniques: automated exposure control; mA and/or kV adjustment per patient size (includes targeted exams where dose is matched to clinical indication); or iterative reconstruction. Contrast material: OMNIPAQUE 350; Contrast volume: 75 ml; Contrast route: INTRAVENOUS (IV); COMPARISON: CR XR PORTABLE CHEST AP 07/13/2025 9:27 PM FINDINGS: Pulmonary arteries: No acute pulmonary embolus. Aorta: Unremarkable. No aortic aneurysm. No aortic dissection. Lungs: There is severe centrilobular emphysema with an apical predominance. Consolidative pulmonary radiopacities are present in the dependent right lower lobe. A spiculated 0.8 cm mass is present within the left upper lobe. Pleural spaces: Unremarkable. No pneumothorax. No pleural effusion. Heart: Heart is normal size. No pericardial effusion. Coronary arteries: There are scattered atheromatous coronary artery calcifications. Lymph nodes: No enlarged lymph nodes. Bones/joints: Bones have a normal appearance. No acute fracture or suspicious bone lesion. Soft tissues: Unremarkable. IMPRESSION: 1. No pulmonary embolus. 2. Right basilar pulmonary radiopacities suspicious for lobar pneumonia. Differential considerations include aspiration. Short interval follow-up is recommended to exclude underlying pulmonary pathology. 3. Spiculated left upper lobe pulmonary nodule. Short interval 3-6 month follow-up recommended to further characterize this finding. Alternatively, prior studies could be used if available for comparison and interval growth over time. Dictated and Authenticated by: Hilaria Potts MD. Orderin Ellis Sloan MD
[2025-07-14] VITALS (11 sets, daily range): BP systolic 97–139; BP diastolic 66–87; PULSE 82–102; RESP 15–20; TEMP 36.6–37.2; O2SAT 94–98
[2025-07-14] MEDS: cefTRIAXone 2 GM/50 ML BAG IVPB ×2 (00:14→21:42)
[2025-07-14] MEDS: DOXYCYCLINE 100 MG in Normal Saline 100 ML IVPB (00:14)
--- NOTE | 2025-07-14 01:09 | W.PC.ACHO ---
Registration Status: REG ER Primary Language: Preferred Language: Welsh ED Information & Data Chief Complaint Chest Pain 07/13/25 22:51 Triage Note pt c/o chestpain onset last 07/13/25 21:01 night becoming worse today pt endorses nausea Medical / Surgical History (Last Updated 04/05/21 @ 11:55 by Lisette Villegas) History of posttraumatic stress disorder (PTSD) Breast cancer Allergic rhinitis Migraine Poor dentition Financial problems Candidiasis of skin Arm pain, left (Last Updated 04/05/21 @ 12:20 by Lisette Villegas) History of carpal tunnel surgery History of lumpectomy of left breast Tennis Elbow (07/15/13) Most Recent Vital Signs Temperature 36.4 C L 07/13/25 21:01 Pulse 88 07/14/25 00:50 Pulse 89 07/14/25 00:50 Respiratory Rate 17 07/14/25 00:50 Respiratory Effort Normal, Non-Labored 07/13/25 22:19 Respiratory Depth Normal 07/13/25 22:19 Respiratory Pattern Normal 07/13/25 22:19 Blood Pressure 108/86 07/13/25 21:01 Pulse Oximetry 97 07/14/25 00:50 Oxygen Delivery Method Nasal Cannula 07/14/25 00:50 Oxygen Flow Rate 2 07/14/25 00:50 Pain Level 2 07/13/25 22:19 Allergies aspirin Allergy (Severe, Unverified 09/06/23 12:08) Swelling/Edema divalproex sodium (From Depakote) Allergy (Severe, Unverified 09/06/23 12:08) Swelling/Edema pneumococcal vaccine (From Pneumovax-23) Allergy (Severe, Verified 09/06/23 12:08) varenicline (From Chantix) Allergy (Severe, Verified 09/06/23 12:08) venom-honey bee (bee venom (honey bee)) Allergy (Severe, Unverified 09/06/23 12:08) Anaphylaxsis influenza virus vaccine tv split 2012- (5 yr,up) (From Afluria) Allergy (Mild, Verified 09/06/23 12:08) latex Allergy (Mild, Unverified 09/06/23 12:08) Hives ranitidine Allergy (Mild, Verified 09/06/23 12:08) erythromycin base (From Erythrocin) Allergy (Unknown, Verified 09/06/23 12:08) ziprasidone HCl (From Geodon) Adverse Reaction (Intermediate, Unverified 09/06/23 12:08) muscle tightness codeine Adverse Reaction (Mild, Unverified 09/06/23 12:08) gi Active Medications Generic Name Dose Route Start Last Admin Trade Name Freq PRN Reason Stop Dose Admin Iohexol 100 ml 07/13/25 22:45 07/13/25 22:42 Omnipaque 350 Mg/Ml 100 Ml Btl IJ 08/12/25 23:59 75 ml DIRECTED NESTOR Administration Sodium Chloride 50 ml 07/13/25 22:45 07/13/25 22:42 Normal Saline - Diluent 50 Ml Vial IJ 50 ml DIRECTED NESTOR Administration Sodium Chloride 0 ml 07/13/25 22:40 07/13/25 22:43 Normal Saline Flush 10 Ml Syr IVP 10 ml PRN PRN Administration IV IV Catheter Type [Left Hand] Peripheral IV IV Catheter Type [Right Peripheral IV Antecubital] IV Catheter Gauge [Left Hand] 20 IV Catheter Gauge [Right 20 Antecubital] Diet Orders Category Date Time Status Regular/Normal [DIET] Nutrition 07/14/25 Breakfast Active Diagnostics 07/14/25 07/13/25 07/13/25 Range/Units 05:35 23:57 22:30 WBC Pending (4.4-10.8) 10^3/uL RBC Pending (3.93-5.22) 10^6/uL Hgb Pending (11.2-15.7) g/dL Hct Pending (36.0-46.0) % MCV Pending (80-95) fL MCH Pending (27.0-33.0) pg MCHC Pending (32.0-36.0) % RDW Pending (11.7-14.6) % Plt Count Pending (130-400) 10^3/uL MPV Pending (8.0-11.0) fL Immature Gran % Pending % Neutrophils % Pending % Lymphocytes % Pending % Monocytes % Pending % Eosinophils % Pending % Basophils % Pending % Nucleated RBC % (0.0-0.3) % Absolute Neutrophils Pending (1.2-6.7) 10^3/uL Absolute Lymphocytes Pending (1.2-3.4) 10^3/uL Absolute Monocytes Pending (0.1-0.8) 10^3/uL Absolute Eosinophils Pending (0.0-0.7) 10^3/uL Absolute Basophils Pending (0.0-0.2) 10^3/uL PT (9.1-11.1) sec INR (0.9-1.1) APTT (20.6-30.2) sec D-Dimer (<500) ng/mlFEU VBG pH (7.31-7.41) VBG pCO2 (41-51) mmHg VBG pO2 mmHg VBG HCO3 (23-28) mmol/L VBG Total CO2 (24-29) mmol/L VBG O2 Saturation % VBG Base Excess (-2-3) mmol/L VBG Lactate (<or=2.0) mmol/L Sodium Pending (136-145) mmol/L Potassium Pending (3.5-5.1) mmol/L Chloride Pending (98-107) mmol/L Carbon Dioxide Pending (20.0-31.0) mmol/L Anion Gap Pending (3-11) mmol/L BUN Pending (9-23) mg/dL Creatinine Pending (0.55-1.02) mg/dL Est GFR (CKD-EPI 2020) Pending (mL/min/1.73m2) Glucose Pending (74-106) mg/dL Calcium Pending (8.3-10.6) mg/dL Magnesium (1.6-2.6) mg/dL Total Bilirubin Pending (0.2-1.2) mg/dL AST Pending (<34) U/L ALT Pending (10-49) U/L Alkaline Phosphatase Pending (46-116) U/L Troponin I Cancelled < 3 (<35) ng/L NT-Pro-B Natriuret Pep (<300) pg/mL Total Protein Pending (5.7-8.2) g/dL Albumin Pending (3.4-5.0) g/dL 07/13/25 Range/Units 21:10 WBC 10.11 (4.4-10.8) 10^3/uL RBC 5.20 (3.93-5.22) 10^6/uL Hgb 14.1 (11.2-15.7) g/dL Hct 45.2 (36.0-46.0) % MCV 87 (80-95) fL MCH 27.1 (27.0-33.0) pg MCHC 31.2 L (32.0-36.0) % RDW 13.0 (11.7-14.6) % Plt Count 226 (130-400) 10^3/uL MPV 10.0 (8.0-11.0) fL Immature Gran % 0.4 % Neutrophils % 72.4 % Lymphocytes % 16.6 % Monocytes % 5.5 % Eosinophils % 4.5 % Basophils % 0.6 % Nucleated RBC % 0.0 (0.0-0.3) % Absolute Neutrophils 7.31 H (1.2-6.7) 10^3/uL Absolute Lymphocytes 1.68 (1.2-3.4) 10^3/uL Absolute Monocytes 0.56 (0.1-0.8) 10^3/uL Absolute Eosinophils 0.46 (0.0-0.7) 10^3/uL Absolute Basophils 0.06 (0.0-0.2) 10^3/uL PT 9.6 (9.1-11.1) sec INR 1.0 (0.9-1.1) APTT 23.9 (20.6-30.2) sec D-Dimer 586 H (<500) ng/mlFEU VBG pH 7.33 (7.31-7.41) VBG pCO2 59 H (41-51) mmHg VBG pO2 24 mmHg VBG HCO3 31 H (23-28) mmol/L VBG Total CO2 28 (24-29) mmol/L VBG O2 Saturation 40 % VBG Base Excess 5 H (-2-3) mmol/L VBG Lactate 1.2 (<or=2.0) mmol/L Sodium 140 (136-145) mmol/L Potassium 3.5 (3.5-5.1) mmol/L Chloride 102 (98-107) mmol/L Carbon Dioxide 30.7 (20.0-31.0) mmol/L Anion Gap 7.3 (3-11) mmol/L BUN 16 (9-23) mg/dL Creatinine 0.8 (0.55-1.02) mg/dL Est GFR (CKD-EPI 2021) 79.06 (mL/min/1.73m2) Glucose 126 H (74-106) mg/dL Calcium 9.1 (8.3-10.6) mg/dL Magnesium 1.8 (1.6-2.6) mg/dL Total Bilirubin 0.40 (0.2-1.2) mg/dL AST 18 (<34) U/L ALT 21 (10-49) U/L Alkaline Phosphatase 83 (46-116) U/L Troponin I < 3 (<35) ng/L NT-Pro-B Natriuret Pep < 35 (<300) pg/mL Total Protein 7.3 (5.7-8.2) g/dL Albumin 4.6 (3.4-5.0) g/dL 07/13/25 00:05 Blood Culture - Pending Blood 07/13/25 23:55 Blood Culture - Pending Blood Intake and Output - 24 Hour Total 07/13/25 20:53 thru 07/14/25 01:01 Intake Total 1128.333 Balance 1128.333 Weight 82 kg Intake: IV 1128.333 Falls Risk Assessment History of Falls No History 07/13/25 22:22 Contributing Factors Impairments 07/13/25 22:22 Ambulatory Aids Independent 07/13/25 22:22 Tubes/Lines None 07/13/25 22:22 Gait Evaluation No gait disturbance 07/13/25 22:22 Cognition No cognitive impairment 07/13/25 22:22 Fall Total Score 3 07/13/25 22:22 Level of Risk Standard/Low Risk 07/13/25 22:22 Attestation Statement: By documenting the first initial, last name, and credentials of the reporting nurse below, both parties acknowledge that all relevant information regarding the patient handoff has been communicated, and that all questions have been addressed to ensure continuity and safety of care. Additional Patient Information/Comments: Report Received From: Barb Malloy RN
[2025-07-14] MEDS: AZITHROMYCIN 500 MG in Normal Saline 250 ML 250 MG IVPB ×2 (01:19→21:42)
[2025-07-14] MEDS: Enoxaparin 40 MG/0.4 ML SYR SC ×2 (02:08→21:41)
--- NOTE | 2025-07-14 02:14 | W.PM.HP.N ---
Date of service: 07/14/25 Time of Service: 02:14 Assessment and Plan Assessment and plan (1) Pneumonia: Status: Acute Assessment and plan: Started on Rocephin and Zithromax. Blood cultures are pending. her curb 65 score was 0 on admission. In terms of sepsis criteria she did have a temperature of 36.4, respiratory rate of 20, heart rate of 107. To get points for her SIRS criteria. Her temperature has been the lowest 36 and her respiratory has to be above 20. (2) Tobacco use: Status: Acute Assessment and plan: Recommend complete total cessation (3) COPD with exacerbation: Status: Acute Assessment and plan: Will continue with her inhalers and at home prednisone believe I did 20 mg p.o. 3 times daily (4) Lung mass: Status: Acute Assessment and plan: Reviewing the CT scan there do mention a spiculated left upper lobe pulmonary nodule the recommendation for 3 to 6-month follow-up with IMPRESSION: 1. No pulmonary embolus. 2. Right basilar pulmonary radiopacities suspicious for lobar pneumonia. Differential considerations include aspiration. Short interval follow-up is recommended to exclude underlying pulmonary pathology. 3. Spiculated left upper lobe pulmonary nodule. Short interval 3-6 month follow-up recommended to further characterize this finding. Alternatively, prior studies could be used if available for comparison and interval growth over time. History of Present Illness History of Present Illness Chief Complaint: sob Narrative: Ms Hameed is a 60-year-old female with known history of tobacco abuse as well as COPD who presents to the ED today with complaints of mild chest pain as well as head headache. While she was in the ED she was noted to have an elevated D-dimer and subsequently got a CT chest rule out PE which did show a right basilar infiltrate. Patient was started on antibiotics in the ED and admitted to the hospital service. Blood cultures have been ordered as well. Patient does use home oxygen but states that her oxygen requirement has gone up. Patient states she takes her medications as prescribed. Patient does continue to smoke daily. Patient is Review of Systems All systems reviewed & are unremarkable except as noted in HPI and below PFSH All Active Problems Lung mass (Acute) Pneumonia (Acute) No-show for appointment (Acute) Obesity (Chronic) Depression with anxiety (Acute) Asthma (Chronic) GERD (gastroesophageal reflux disease) (Chronic) Hiatal hernia (Chronic) COPD (chronic obstructive pulmonary disease) (Chronic) Sleep apnea, obstructive (Chronic) Bee sting allergy (Acute) Dyspnea (Acute) Cough (Acute) Pain in breast (Acute) Chronic pain (Chronic) COPD with exacerbation (Acute) Tobacco use (Acute) Medical History (Updated 07/14/25 @ 02:20 by Cb Cedeno MD) History of posttraumatic stress disorder (PTSD) Breast cancer Allergic rhinitis Migraine Poor dentition Financial problems Candidiasis of skin Arm pain, left Surgical History (Updated 04/05/21 @ 12:20 by Lisette Villegas) History of carpal tunnel surgery History of lumpectomy of left breast Tennis Elbow (07/15/13) right Family History (Updated 04/05/21 @ 12:15 by Lisette Villegas) Father Hypertension Heart disease Diabetes Mother Emphysema lung COPD (chronic obstructive pulmonary disease) Maternal Aunt Breast cancer Dementia Cancer Social History (Updated 04/05/21 @ 12:18 by Lisette Villegas) Smoking/Tobacco Use Status: Current every day Tobacco Type: cigarettes Smoking risk assessment performed?: Yes Alcohol Intake: current Alcohol Intake frequency: holidays/special occasions only Drug use: Never Substance use type: does not use Housing: other In current or past relationships, have you been: hurt Do you feel safe in your relationship?: No Meds Allergies and Home Medications Allergies Allergy/AdvReac Type Severity Reaction Status Date / Time aspirin Allergy Severe Swelling/Ed Unverified 09/06/23 12:08 moy divalproex sodium (From Allergy Severe Swelling/Ed Unverified 09/06/23 12:08 Depakote) moy pneumococcal vaccine (From Allergy Severe Verified 09/06/23 12:08 Pneumovax-23) varenicline (From Chantix) Allergy Severe Verified 09/06/23 12:08 venom-honey bee (bee venom Allergy Severe Anaphylaxsi Unverified 09/06/23 12:08 (honey bee)) s influenza virus vaccine tv Allergy Mild Verified 09/06/23 12:08 split 2012-14 (5 yr,up) (From Afluria) latex Allergy Mild Hives Unverified 09/06/23 12:08 ranitidine Allergy Mild Verified 09/06/23 12:08 erythromycin base (From Allergy Unknown Verified 09/06/23 12:08 Erythrocin) ziprasidone HCl (From Geodon) AdvReac Intermediate muscle Unverified 09/06/23 12:08 tightness codeine AdvReac Mild gi Unverified 09/06/23 12:08 Home Medications ?Medication ?Instructions ?Recorded ?Confirmed ?Type clonazepam 1 mg tablet (Klonopin) 1 mg PO TID 03/17/13 07/14/25 History ibuprofen 200 mg tablet (I-Prin) 800 mg PO TID PRN PRN 03/17/13 07/14/25 History methylphenidate HCl 10 mg tablet 15 mg PO TID 03/17/13 07/14/25 History montelukast 10 mg tablet 10 mg PO DAILY AM 03/17/13 07/14/25 History (Singulair) rabeprazole 20 mg tablet,delayed 20 mg PO DAILY 03/17/13 09/06/23 History release (AcipHex) albuterol sulfate 90 mcg/actuation 2 puff inhalation Q4H PRN PRN 07/09/13 07/14/25 History aerosol inhaler (ProAir HFA) ipratropium 20 mcg-albuterol 100 2 puff inhalation BID 12/18/13 07/14/25 History mcg/actuation mist for inhalation (Combivent Respimat) pantoprazole 40 mg tablet,delayed 40 mg PO .QD 09/06/23 07/14/25 History release budesonide 1 mg/2 mL suspension 1 mg inhalation .QD PRN 07/14/25 07/14/25 History for nebulization clonazepam 0.5 mg tablet 0.5 mg PO TID 07/14/25 07/14/25 History clonidine HCl 0.2 mg tablet 0.2 mg PO HS 07/14/25 07/14/25 History fluticasone propionate 230 2 puff inhalation BID 07/14/25 07/14/25 History mcg-salmeterol 21 mcg/actuation HFA inhaler (Advair HFA) mirabegron 50 mg tablet,extended 50 mg PO HS 07/14/25 07/14/25 History release 24 hr (Myrbetriq) Exam Narrative Exam Narrative: HEENT normocephalic atraumatic mucous membranes moist oropharynx clear Neck no lymphadenopathy no JVD no thyromegaly Cardiovascular regular rate and rhythm no murmurs gallops Lungs bilateral expiratory wheeze no accessory muscle use noted speaks in complete sentences Abdomen soft nontender nondistended Neuro nonfocal Psych patient does not participate fully in the exam and mostly responds with yes and no answer. Results Labs 07/13/25 21:10 07/13/25 21:10 Labs: Laboratory Results - last 24 hr 07/13/25 07/13/25 07/13/25 21:10 22:30 23:57 WBC 10.11 RBC 5.20 Hgb 14.1 Hct 45.2 MCV 87 MCH 27.1 MCHC 31.2 L RDW 13.0 Plt Count 226 MPV 10.0 Immature Gran % 0.4 Neutrophils % 72.4 Lymphocytes % 16.6 Monocytes % 5.5 Eosinophils % 4.5 Basophils % 0.6 Nucleated RBC % 0.0 Absolute Neutrophils 7.31 H Absolute Lymphocytes 1.68 Absolute Monocytes 0.56 Absolute Eosinophils 0.46 Absolute Basophils 0.06 PT 9.6 INR 1.0 APTT 23.9 D-Dimer 586 H VBG pH 7.33 VBG pCO2 59 H VBG pO2 24 VBG HCO3 31 H VBG Total CO2 28 VBG O2 Saturation 40 VBG Base Excess 5 H VBG Lactate 1.2 Sodium 140 Potassium 3.5 Chloride 102 Carbon Dioxide 30.7 Anion Gap 7.3 BUN 16 Creatinine 0.8 Est GFR (CKD-EPI 2020) 79.06 Glucose 126 H Calcium 9.1 Magnesium 1.8 Total Bilirubin 0.40 AST 18 ALT 21 Alkaline Phosphatase 83 Troponin I < 3 < 3 Cancelled NT-Pro-B Natriuret Pep < 35 Total Protein 7.3 Albumin 4.6 Last Vital Signs Temp 36.6 C 07/14/25 01:38 Pulse 91 H 07/14/25 01:38 Resp 19 07/14/25 01:38 BP 119/84 07/14/25 01:38 Pulse Ox 95 07/14/25 01:38 Time Spent Time spent with Patient: 40-54 minutes Time was spent: preparing to see the patient(eg.review tests), obtaining and/or reviewing separately otained hiistory, ordering medications,tests, procedures, referring, communicating with other health palliative care nurse, indepentently interpreting results, counseling the patient and care coordination
[2025-07-14 02:25] LABS: COVID-19 PCR Negative (Negative); RSV PCR Negative (Negative)
[2025-07-14 06:57] LABS: Abs Immature Grans 0.01 10^3/uL (0.0-0.06); HCT 38.4 % (36.0-46.0); HGB 12.2 g/dL (11.2-15.7); Immature Grans % 0.1 %; MCH 27.7 pg (27.0-33.0); MCHC 31.8 % (32.0-36.0); MCV 87 fL (80-95); MPV 10.4 fL (8.0-11.0); Platelet Count 184 10^3/uL (130-400); RBC 4.40 10^6/uL (3.93-5.22); RDW 13.0 % (11.7-14.6); RDW-SD 41.6 fL; WBC 7.23 10^3/uL (4.4-10.8)
[2025-07-14 07:27] LABS: ALT 19 U/L (10-49); AST 18 U/L (<34); Albumin 3.7 g/dL (3.4-5.0); Alkaline Phosphatase 68 U/L (46-116); Anion Gap 4.6 mmol/L (3-11); BUN 15 mg/dL (9-23); Bilirubin, Total 0.40 mg/dL (0.2-1.2); CO2 28.4 mmol/L (20.0-31.0); Calcium 8.3 mg/dL (8.3-10.6); Chloride 110 mmol/L (98-107); Glucose 95 mg/dL (74-106); Potassium 4.1 mmol/L (3.5-5.1); Sodium 143 mmol/L (136-145); Total Protein 5.8 g/dL (5.7-8.2)
[2025-07-14] MEDS: Ipratropium/Albuterol 4 GM 120 PUFF INH IH ×2 (08:42→19:48)
[2025-07-14] MEDS: predniSONE 20 MG TAB PO (09:14)
[2025-07-14] MEDS: clonazePAM 1 MG TAB PO (09:14)
[2025-07-14] MEDS: Omeprazole 20 MG CAPCR 40 MG PO (09:14)
[2025-07-14 09:25] LABS: Glucose Negative (Negative)
--- NOTE | 2025-07-14 10:26 | INITIAL_ITS ---
Date of service: 07/14/25 Time of Service: 10:26 Care Management Initial Assmt Initial Assessment Reason for Hospitalization: pneumonia Functional Status/Living Situation Patient Presentation: Carla presented to the ED last evening with c/o headache and chest pain. CT showed right basilar infiltrate, and she had increased HR and RR and also an increased O2 requirement. CXR consistent with pneumonia and Carla was admitted for IV antibiotics and O2. Carla and her partner, Charly were visiting, when CM met with them today. They were both very pleasant, and easy to converse with. Carla stated that she is on nc O2 at home, as needed. She stated that she has been sick on and off for over a year. She has her young grandchildren over often, and feels that she gets sick whenever they do. It is starting to affect her quality of life. Carla is well supported by Charly and her family, and she denies the need for any additional supports at this time. 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 Care Team Visit Care Team Role Provider Type Lyndon Willingham MD [facility] STAFF PHYSICIAN Oz Zhao Primary Care Provider NON-[facility] Noe Yang Other Providers OTHER Luther Corral MD Emergency Provider [facility] STAFF PHYSICIAN Cb Cedeno MD Admit Provider [facility] STAFF PHYSICIAN Attending Provider Discharge Potential Discharge Needs: PCP F/U Appt Anticipated Barriers to Discharge: None Identified Patient/Family Education Needs: Review discharge instructions, discuss Ask Me Three Transportation: Private vehicle Plan: Anticipate that Carla will discharge home in the next day or 2 with no new services. She will f/u with her PCP and her care team, and continue per her plan of care. Carla will transport home with Charly. CM will continue to follow. Social Determinants of Health Screening Social Determinants of health last assessed in clinic: 07/14/25 Will the Patient Participate in the Screening?: Yes Do you worry about having a steady place to live?: no Problems where you live: no known problems In the past 12 months, have you had to go without electric, gas, oil or water in your home?: no 1. Within the past 12 months, we worried whether our food would run out before we got money to buy more.: Don't know/refused 2. Within the past 12 months, the food we bought just didn't last and we didn't have money to get more.: Don't know/refused Has lack of transportation kept you from medical appointments or from doing things needed for daily living?: yes Has anyone in your life made you feel unsafe or unsupported?: no How hard is it for you to pay for the very basics like food, housing, medical care, and heating? Would you say it is:: Not hard at all Do you want help finding or keeping work or a job?: I do not need or want help If for any reason you need help with day-to-day activities such as bathing, preparing meals, shopping, managing finances, etc., do you get the help you need?: I need a lot more help How often do you feel lonely or isolated from those around you?: Sometimes Do you speak a language other than Czech at home?: No Does the patient want assistance with any of the above?: No Health Related Social Needs Health related social needs: transportation insecurity (Z59.82), problems with daily activities (Z73.9) and feeling lonely/isolated (Z60.8) Health related social needs details: patient said sometime feel lonely, fianc? help with daily living task at home PFSH All Active Problems Lung mass (Acute) Pneumonia (Acute) No-show for appointment (Acute) Obesity (Chronic) Depression with anxiety (Acute) Asthma (Chronic) GERD (gastroesophageal reflux disease) (Chronic) Hiatal hernia (Chronic) COPD (chronic obstructive pulmonary disease) (Chronic) Sleep apnea, obstructive (Chronic) Bee sting allergy (Acute) Dyspnea (Acute) Cough (Acute) Pain in breast (Acute) Chronic pain (Chronic) COPD with exacerbation (Acute) Tobacco use (Acute) Medical History (Updated 07/14/25 @ 02:20 by Cb Cedeno MD) History of posttraumatic stress disorder (PTSD) Breast cancer Allergic rhinitis Migraine Poor dentition Financial problems Candidiasis of skin Arm pain, left Surgical History (Updated 04/05/21 @ 12:20 by Lisette Villegas) History of carpal tunnel surgery History of lumpectomy of left breast Tennis Elbow (07/15/13) right Family History (Updated 04/05/21 @ 12:15 by Lisette Villegas) Father Hypertension Heart disease Diabetes Mother Emphysema lung COPD (chronic obstructive pulmonary disease) Maternal Aunt Breast cancer Dementia Cancer Social History (Updated 04/05/21 @ 12:18 by Lisette Villegas) Smoking/Tobacco Use Status: Current every day Tobacco Type: cigarettes Smoking risk assessment performed?: Yes Alcohol Intake: current Alcohol Intake frequency: holidays/special occasions only Drug use: Never Substance use type: does not use Housing: other In current or past relationships, have you been: hurt Do you feel safe in your relationship?: No
--- NOTE | 2025-07-14 12:02 | RESPIRATORY ---
Addendum entered by Wili Vasquez 07/15/25 08:22: Pt wears 2L at rest, 3L pulse dose with ambulation with [employer] portable concentrator. DME: [employer]. Original Note: Patient has a portable oxygen concentrator in her room. Machine is set to 3L and the battery is 100% charged. Patient does not remember who her DME is and the concentrator is not labeled.
--- NOTE | 2025-07-14 12:06 | RESPIRATORY ---
Patient has a history of RICHY but refuses to wear CPAP.
--- NOTE | 2025-07-14 12:19 | IN_ITS ---
PT Notes Visit Reasons: Pneumonia Physical Therapy Inpatient Initial Evaluation Date:07/14/2025 Referring Doctor: Dr Cedeno PT Orders: PT CONSULT: PT Evaluation and treat Precautions: Standard, Oxygen Titrate to keep sats 88-92% (Currently 1L via NC) Patient Profile/Admitting Diagnosis: Carla is a 60 yo female who presented to the ED on 07/13/25 with cc chest pain and headache. In ED , labs revealealed elevated D-Dimer therefore Chest CT (+) right Basilar infiltrate. treated with Antibiotic. Blood cultures pending. Pt admitted to Med surg unit for further medical management and PT Consult placed. PMHX: Social History/Home Situation: Pt resides in [facility] with 3 [address] with rail. Independent ambulation and ADL Home Oxygen which she uses as she needs it, drives, 6 dogs. Equipment Owned/DME: oxygen portable concentrator( pt states she does not use oxygen continuously) Subjective: pt states she has Home Oxygen which she uses as she needs it She states she just wants her lungs to be better Objective: [] General Observation: female supine in bed with Oxygen at 1L/min via NC . Mental Status: A+Ox4, cooperative , able to follow instructions Pain:left leg long time Vitals: at rest on 1L 96%, at rest on RA 93%; after amb on RA 81% oxygen applied returned to 92% with VC for PLB, amb on 1L/min 88% increased to 95% with cues for PLB. ROM: [] BUE: WNL BLE :WNL Strength: [] B Upper Extremity: 5/5 grossly Right Lower Extremity: grossly 5/5 Left Lower Extremity: grossly 4/5 Sensation: intact Bed Mobility/Transfers: [] Supine to sit independent Sit to stand independent Stand to sit independent Bed to chair independent Gait:independent amb 25 feet x 2 without AD pt demonstrates poor breath control/ pacing with and without oxygen. Stairs: Pt declined to leave her room Balance: [] Static Sitting: Normal Dynamic Sitting: Normal Static Standing: Normal Dynamic Standing: Good Special Tests: [] Mobility Limitations Standardized Measure [] [facility] AM-PAC 6 clicks Basic Mobility Inpatient Short Form: [] Raw Score: 23 CMS Score: 11.20% Informed Consent/Education: Patient instructed in purpose of PT consult. Assessment: Pt is a 60 yo female with poor breath control/ pacing/ energy conservation techniques. Pt required continuous verbal and visual cues for pursed william breathing to improve oxygenation during activities and post activity. Pt lacks knowledge regarding her pulmonary status and would benefit from Pulmonary rehab program as an outpatient. Patient presents with clinical signs and symptoms consistent with current/admitting diagnoses that have resulted to mobility limitations, gait instability, generalized weakness, and impairment of motor control as demonstrated by the following impairment level findings: 1. impaired strength LLE hip musculature 2. Impaired standing balance 3. pain in left leg 4. need for supplemental oxygen 5. poor breath control/ pacing Impairments are contributing to the following functional limitations: 1. Inability to safely ambulate without dyspnea 2. Increase completion time for mobility ADL performance 3. inability to perform stairs without assistance Patient is assessed as moderate complexity based on the following: History: 60-year-old female with impairment level findings, functional limitations, and past medical history as indicated above Examination: Demonstrable impairment in strength, balance, and mobility level with underlying impairments and functional limitations as documented above Presentation: evolving/stable Decision Making: moderate Goals: 1. independent ambulation >300 feet without reports of increased dyspnea 2. supervision on 4 steps with rail to safely enter and exit home 3. demonstrate breath control techniques and pacing independently during activities. Plan of Care/Treatment Plan: 1-2x/day, 7 days/week x 1 week. Plan of care has been reviewed with the COMMERCIAL PRODUCER providing the service under Physical Therapy direction. Initiate Physical Therapy intervention for strengthening, bed mobility, transfers, gait, stairs, balance training, use of assistive device. DISCHARGE RECOMMENDATIONS: Home with Outpatient pulmonary rehab vs [facility] TREATMENT CODE/TIME: 16099/ [id number] Thank you for the opportunity to participate in the care of this patient. Emily Escalante, PT [facility]
[2025-07-14] MEDS: clonazePAM 0.5 MG TAB PO ×2 (14:08→20:45)
[2025-07-14] MEDS: Methylphenidate 10 MG TAB 15 MG PO ×2 (14:10→20:45)
[2025-07-14] MEDS: predniSONE 20 MG TAB 40 MG PO ×2 (14:10→14:11)
[2025-07-14] MEDS: Montelukast 10 MG TAB PO (20:44)
[2025-07-14] MEDS: Mirabegron 50 MG TABCR PO (20:45)
[2025-07-14] MEDS: guaiFENesin 600 MG TABCR PO (20:45)
[2025-07-14] MEDS: cloNIDine 0.1 MG TAB PO (20:45)
[2025-07-14] MEDS: Acetaminophen 325 MG TAB PO (21:41)
[2025-07-14] MEDS: Normal Saline Flush 10 ML SYR IVP (22:28)
[2025-07-15] MEDS: Calcium Carbonate *TUMS* 500 MG CHEW PO (02:07)
[2025-07-15 02:14] VITALS: BP 105/64
[2025-07-15] MEDS: Omeprazole 20 MG CAPCR 40 MG PO (07:16)
[2025-07-15] MEDS: Methylphenidate 10 MG TAB 15 MG PO ×2 (07:44→13:47)
[2025-07-15] MEDS: guaiFENesin 600 MG TABCR PO (07:45)
[2025-07-15] MEDS: clonazePAM 0.5 MG TAB PO ×2 (07:45→13:47)
[2025-07-15] MEDS: cloNIDine 0.1 MG TAB PO (07:45)
[2025-07-15] MEDS: predniSONE 20 MG TAB 40 MG PO (07:46)
[2025-07-15] MEDS: Ipratropium/Albuterol 4 GM 120 PUFF INH IH (08:04)
[2025-07-15] MEDS: Patient's Own Medication 1 EACH MISC IH (08:05)
[2025-07-15 08:08] VITALS: O2SAT 92
[2025-07-15 08:29] VITALS: BP 144/74; PULSE 77; RESP 16; TEMP 37.5; O2SAT 94
--- NOTE | 2025-07-15 11:03 | PTTR_ITS ---
Date of service: 07/15/25 PT Notes Visit Reasons: Pneumonia Inpatient Physical Therapy Treatment Note [facility] Date: 07/15/2025 PRECAUTIONS:Standard, Oxygen Titrate to keep sats 88-92% (Currently 1L via NC) SUBJECTIVE: Patient reports she feels much better and is hoping she can go home today despite not feeling 100%. OBJECTIVE: Patient presented seated in chair supplemental O2 at 1 L via nasal cannula ? PAIN: Denied VITALS: ? Pre-Treatment: SaO2 96% on 1 L at rest ? Post-Treatment: SaO2 on 1 L 91% Therapeutic Activities ([id number][]): Direct one-on-one instruction in dynamic activities to improve functional performance. ?? Patient education regarding pacing and breathing techniques to maximize activity tolerance? Provided skilled cues and instruction on performance and technique throughout. ? BED MOBILITY/TRANSFERS? Rolling L/R: Independent Supine-sit:independent? Sit-supine: independent ? Sit-stand: independent? Stand-sit: independent ? Bed-Chair: independent ? Chair-bed: independent GAIT? Assistive Device:none? Weight bearing: full WB Assist: SBA ? Distance:? 100 ft x2 with one stand rest ? Deviation: slow chhaya reduced step length ? STAIRS: 2 trials of 3 4 steps? and 2 6 steps with rails SBA pt requires cues f or tubing management ? ASSESSMENT:? Pt tolerated session well with improvement in distance of ambulation on 1L/min via NC maintaining SaO2 >92% last 40 feet of 2nd distance oxygen reduced to 0.5L/min SaO2 91%. Pt with poor breath control with use of PLB requiring continuous cues during functional mobility. Pt education provided for pacing of stopping to stand rest ~every 30-40 feet and take 3 breaths to reduce MENARD. PLAN: 1-2x/day, 7 days/week x 1 week. Plan of care has been reviewed with the TRANSMITTER ENGINEER IN CHARGE providing the service under Physical Therapy direction. Initiate Physical Therapy intervention for strengthening, bed mobility, transfers, gait, stairs, balance training, use of assistive device. TREATMENT CODE/TIME: 28693/ [id number] DISCHARGE RECOMMENDATION: Home with outpatient Pulmonary Rehab/ [facility]
--- NOTE | 2025-07-15 13:17 | DSE_ITS ---
Date of service: 07/15/25 Time of Service: 13:17 DS: Diagnosis Discharge Diagnosis (1) Pneumonia: Status: Acute (2) Tobacco use: Status: Acute (3) COPD with exacerbation: Status: Acute (4) Lung mass: Status: Acute Discharge Plan Disposition Patient Disposition: Home Condition: Improving Discharge Details Reason For Visit: Pneumonia Admit Date/Time: 07/14/25 00:28 Admit Provider: Cb Cedeno Attending Provider: Cb Cedeno Primary Care Provider: Oz Zhao Hospital Course Hospital Course: 60 yo F with severe COPD, smoking, and chronic hypoxic/hypercarbic respiratory failure on 1-2 liters NC home oxygen who presented with chest pain, cough, and shortness of breath. Chest CT did not show PE but did show RLL infiltrate. She was requiring 3L supplemental oxygen, above her typical 1-2 liters. She was started on ceftriaxone and axithromycin and prednisone for COPD, Her pain and SOB and energy were improving by 07/15. She was dicharged on 4-5 more days of antibiotics. She requested and was given a prolonged prednisone taper as she states she has needed this in the past. Smoking cessation was discussed but she declined medicaitons. She had an 8mm lung nodule seen on chest CT on admission. [address] is recommended. She should follow up with PCP in 1 week. Recommendations for Follow Up Recommended tests to be ordered by follow up provider: repeat CT chest with contrast in 3 months Home Meds and New Rx's Prescriptions: New guaifenesin [Mucus Relief ER] 600 mg Tablet Extended Release 12hr 600 mg PO BID Qty: 30 0RF azithromycin 250 mg tablet 250 mg PO DAILY 4 Days Qty: 4 0RF Rx Instructions: start on day 2 of therapy cefpodoxime 200 mg tablet 200 mg PO BID 4 Days Qty: 9 0RF Rx Instructions: must administer with a meal/food starting 07/15 evening prednisone 10 mg tablet See Taper PO DAILY Qty: 32 0RF Taper: Prednisone 10mg taper 40 mg Daily for 3 Days and 0 Hour 30 mg Daily for 3 Days and 0 Hour 20 mg Daily for 3 Days and 0 Hour 10 mg Daily for 3 Days and 0 Hour 5 mg Daily for 3 Days and 0 Hour Continued methylphenidate HCl 10 MG tablet 15 mg PO TID clonazepam [Klonopin] 1 MG tablet 1 mg PO TID montelukast [Singulair] 10 MG tablet 10 mg PO DAILY AM rabeprazole [AcipHex] 20 MG tablet,delayed release (DR/EC) 20 mg PO DAILY ibuprofen [I-Prin] 200 MG tablet 800 mg PO TID PRN PRN albuterol sulfate [ProAir HFA] 200 PUFF HFA aerosol inhaler 2 puff Inhalation Q4H PRN PRN Patient Comments: 05/28/15-Patient says that her provider refuses to refill. LP Combivent Respimat 1 PUFF mist 2 puff Inhalation BID clonazepam 0.5 mg tablet 0.5 mg PO TID Patient Comments: TAKE 1 TABLET BY MOUTH THREE TIMES DAILY (START ON 06/10/25) clonidine HCl 0.2 mg tablet 0.2 mg PO HS Patient Comments: TAKE 1 TABLET BY MOUTH ONCE DAILY AT BEDTIME fluticasone propion-salmeterol [Advair HFA] 230-21 mcg/actuation HFA aerosol inhaler 2 puff INHALATION BID Patient Comments: INHALE 2 PUFFS BY MOUTH TWICE DAILY budesonide 1 mg/2 mL suspension for nebulization 1 mg inhalation .QD PRN Patient Comments: INHALE 1 VIAL IN NEBULIZER ONCE DAILY NEEDED FOR ACUTE BRONCHITIS SYMPTOMS mirabegron [Myrbetriq] 50 mg tablet extended release 24 hr 50 mg PO HS Patient Comments: TAKE 1 TABLET BY MOUTH ONCE DAILY AT BEDTIME Discontinued pantoprazole 40 mg tablet,delayed release (DR/EC) 40 mg PO .QD Patient Comments: TAKE 1 TABLET BY MOUTH EVERY DAY Discharge Instructions Instructions: Community-Acquired Pneumonia, Adult (DC) Additional Instructions: You will need a follow up CT scan of your lungs in 3 months to check on a nodule that was seen (separate from the pneumonia) Stand Alone Forms: Portal Information, Nursing Discharge Form Referrals: Oz Zhao [Primary Care Provider, Medicine] Referral Note: PCP office will give you a call to set up a follow up appointment. If you don't hear from them, please give them a call. Activity:: Activity as Tolerated Equipment/Supplies:: No Equipment Needed Diet:: As Tolerated Discharge Orders Discharge Orders: Discharge Order (Routine); Ordered 07/15/25 Ordered By: Lyndon Willingham Discharge Data Discharge Date/Time-TO BE ENTERED AT DEPARTURE: 07/15/25 15:45 DS: Summary Time Spent with Patient providing and/or coordinating discharge services: Greater than 30 minutes Status at Discharge Functional status at discharge: independent ambulation Overall status at discharge: patient is progressing back to baseline Mental Status: mental status grossly normal Speech and Movement: speech and movement normal Mood: congruent mood Affect: normal affect Quality:SDOH Health Related Social Needs: Health related social needs transpo insecurity daily a ctivities lonely/isolated Health related social needs details patient said somet robin feel lonely, fianc? help with daily living task at home Health related social needs details: patient said sometime feel lonely, fianc? help with daily living task at home Exam Narrative Exam Narrative: GEN: A&O, NAD, walking with PT, took oxygen off when sitting. Cardiovascular regular rate and rhythm no murmurs gallops Lungs: Slight bilateral expiratory wheeze, no rales, no accessory muscle use noted speaks in complete sentences Abdomen soft nontender nondistended ext: no c/c/e psych: nl mood/affect, pleasant and cooperative. Psych Mental Status: mental status grossly normal Speech and Movement: speech and movement normal Mood: congruent mood Affect: normal affect DS: Data Vitals/I&O Vitals and I&O: Vital Signs Temperature 37.5 C 07/15/25 08:29 Temperature Source Temporal Artery Scan 07/15/25 08:29 Pulse 77 07/15/25 08:29 Pulse 89 07/14/25 00:50 Respiratory Rate 16 07/15/25 08:29 Respiratory Effort Normal 07/14/25 01:38 Respiratory Depth Normal 07/14/25 01:38 Respiratory Pattern Normal 07/14/25 01:38 Blood Pressure 144/74 H 07/15/25 08:29 Blood Pressure Mean 97 07/15/25 08:29 Pulse Oximetry 94 07/15/25 08:29 Oxygen Delivery Method Nasal Cannula 07/15/25 08:29 Oxygen Flow Rate 1 07/15/25 08:29 Pain Level 2 07/15/25 08:29 Intake & Output 07/14/25 07/15/25 07/15/25 23:59 11:59 23:59 Intake Total 50 / 1450.000 250 / 250 Output Total 300 / 700 Balance -250 / 750.000 250 / 250 Weight 79.8 kg Intake: IV 50 / 1450.000 250 / 250 Output: Urine 300 / 700 Other: Urine Color Yellow Urine Appearance Clear Urine Odor Normal Data Completed and Pending Pending Labs at Discharge: 07/13/25 07/13/25 07/13/25 21:10 22:30 23:57 WBC 10.11 RBC 5.20 Hgb 14.1 Hct 45.2 MCV 87 MCH 27.1 MCHC 31.2 L RDW 13.0 Plt Count 226 MPV 10.0 Immature Gran % 0.4 Neutrophils % 72.4 Lymphocytes % 16.6 Monocytes % 5.5 Eosinophils % 4.5 Basophils % 0.6 Nucleated RBC % 0.0 Absolute Neutrophils 7.31 H Absolute Lymphocytes 1.68 Absolute Monocytes 0.56 Absolute Eosinophils 0.46 Absolute Basophils 0.06 PT 9.6 INR 1.0 APTT 23.9 D-Dimer 586 H VBG pH 7.33 VBG pCO2 59 H VBG pO2 24 VBG HCO3 31 H VBG Total CO2 28 VBG O2 Saturation 40 VBG Base Excess 5 H VBG Lactate 1.2 Sodium 140 Potassium 3.5 Chloride 102 Carbon Dioxide 30.7 Anion Gap 7.3 BUN 16 Creatinine 0.8 Est GFR (CKD-EPI 2020) 79.06 Glucose 126 H Calcium 9.1 Magnesium 1.8 Total Bilirubin 0.40 AST 18 ALT 21 Alkaline Phosphatase 83 Troponin I < 3 < 3 Cancelled NT-Pro-B Natriuret Pep < 35 Total Protein 7.3 Albumin 4.6 Urine Color Urine Clarity Urine pH Ur Specific [place] Urine Protein Urine Ketones Urine Blood Urine Nitrite Urine Bilirubin Urine Urobilinogen Ur Leukocyte Esterase Urine Glucose COVID-19 Source SARS-CoV-2 (PCR) Influenza Type A (PCR) Influenza Type B (PCR) RSV (PCR) 07/14/25 07/14/25 07/14/25 01:25 06:35 09:10 WBC 7.23 RBC 4.40 Hgb 12.2 Hct 38.4 MCV 87 MCH 27.7 MCHC 31.8 L RDW 13.0 Plt Count 184 MPV 10.4 Immature Gran % 0.1 Neutrophils % 58.6 Lymphocytes % 20.2 Monocytes % 6.6 Eosinophils % 13.7 Basophils % 0.8 Nucleated RBC % 0.0 Absolute Neutrophils 4.23 Absolute Lymphocytes 1.46 Absolute Monocytes 0.48 Absolute Eosinophils 0.99 H Absolute Basophils 0.06 PT INR APTT D-Dimer VBG pH VBG pCO2 VBG pO2 VBG HCO3 VBG Total CO2 VBG O2 Saturation VBG Base Excess VBG Lactate Sodium 143 Potassium 4.1 Chloride 110 H Carbon Dioxide 28.4 Anion Gap 4.6 BUN 15 Creatinine 0.6 Est GFR (CKD-EPI 2020) 108.51 Glucose 95 Calcium 8.3 Magnesium Total Bilirubin 0.40 AST 18 ALT 19 Alkaline Phosphatase 68 Troponin I NT-Pro-B Natriuret Pep Total Protein 5.8 Albumin 3.7 Urine Color Yellow Urine Clarity Clear Urine pH 6.0 Ur Specific [place] 1.020 Urine Protein Negative Urine Ketones Negative Urine Blood Negative Urine Nitrite Negative Urine Bilirubin Negative Urine Urobilinogen 0.2 Ur Leukocyte Esterase Negative Urine Glucose Negative COVID-19 Source Nasopharynx SARS-CoV-2 (PCR) Negative Influenza Type A (PCR) Negative Influenza Type B (PCR) Negative RSV (PCR) Negative Preliminary micro results at discharge 07/13/25 00:05 Blood Blood Culture - Preliminary NO GROWTH 24 HOURS 07/13/25 23:55 Blood Blood Culture - Preliminary NO GROWTH 24 HOURS PFSH All Active Problems Lung mass (Acute) Pneumonia (Acute) No-show for appointment (Acute) Obesity (Chronic) Depression with anxiety (Acute) Asthma (Chronic) GERD (gastroesophageal reflux disease) (Chronic) Hiatal hernia (Chronic) COPD (chronic obstructive pulmonary disease) (Chronic) Sleep apnea, obstructive (Chronic) Bee sting allergy (Acute) Dyspnea (Acute) Cough (Acute) Pain in breast (Acute) Chronic pain (Chronic) COPD with exacerbation (Acute) Tobacco use (Acute) Medical History (Updated 07/14/25 @ 02:20 by Cb Cedeno MD) History of posttraumatic stress disorder (PTSD) Breast cancer Allergic rhinitis Migraine Poor dentition Financial problems Candidiasis of skin Arm pain, left Surgical History (Updated 04/05/21 @ 12:20 by Lisette Villegas) History of carpal tunnel surgery History of lumpectomy of left breast Tennis Elbow (07/15/13) right Family History (Updated 04/05/21 @ 12:15 by Lisette Villegas) Father Hypertension Heart disease Diabetes Mother Emphysema lung COPD (chronic obstructive pulmonary disease) Maternal Aunt Breast cancer Dementia Cancer Social History (Updated 04/05/21 @ 12:18 by Lisette Villegas) Smoking/Tobacco Use Status: Current every day Tobacco Type: cigarettes Smoking risk assessment performed?: Yes Alcohol Intake: current Alcohol Intake frequency: holidays/special occasions only Drug use: Never Substance use type: does not use Housing: other In current or past relationships, have you been: hurt Do you feel safe in your relationship?: No Time Spent with Patient Time Spent with Patient: <45 minutes Time was spent: preparing to see the patient(eg.review tests), obtaining and/or reviewing separately otained hiistory, ordering medications,tests, procedures, referring, communicating with other health resident care manager rn, indepentently interpreting results, counseling the patient and care coordination
--- NOTE | 2025-07-15 16:47 | CMDISCH_ITS ---
Date of service: 07/15/25 Time of Service: 16:47 LACE Index Scoring Tool Questions: Length of Stay (in days): 1 Was the patient admitted via the E.D.?: Yes Comorbidities: Chronic Pulmonary Disease and Any Tumor E.D. Visits: 0 Answers: Total Score: 9 Risk of Readmission: Low Risk Care Management Discharge Plan Reason for Hospitalization: Pneumonia Discharge Plan: Carla returned home today with no new services. She transported v ia [facility] private vehicle, coordinated by CM. She will follow up with her PCP and discharge plan of care. She was agreeable to the plan to return home. Patient/Family Education Needs: Review discharge instructions and limitations, discussion of self care needs including ask me three. Services Needed at Discharge: Transportation ([facility] private vehicle) SDOH Health Related Social Needs: Health related social needs transpo insecurity daily a ctivities lonely/isolated Health related social needs details patient said somet robin feel lonely, fianc? help with daily living task at home Health related social needs details: patient said sometime feel lonely, fianc? help with daily living task at home
== END 2025-07-15 15:45 | disposition home or self-care (01) | DRG 190 ==
LOC: ER 23:24 → MS 07-14 01:35
PROVIDERS: Admitting Provider Hospitalist; Emergency Provider General Practice; PCP Family Medicine; Responsible Provider Family Medicine; Visit Provider Hospitalist
DX: J44.0 Chronic obstructive pulmonary disease with (acute) lower respiratory infection; J44.1 Chronic obstructive pulmonary disease with (acute) exacerbation; F17.210 Nicotine dependence, cigarettes, uncomplicated; J96.11 Chronic respiratory failure with hypoxia; J96.12 Chronic respiratory failure with hypercapnia; R91.8 Other nonspecific abnormal finding of lung field; R79.1 Abnormal coagulation profile; Z99.81 Dependence on supplemental oxygen; F41.8 Other specified anxiety disorders; K21.9 Gastro-esophageal reflux disease without esophagitis; K44.9 Diaphragmatic hernia without obstruction or gangrene; G47.33 Obstructive sleep apnea (adult) (pediatric); G89.29 Other chronic pain; Z85.3 Personal history of malignant neoplasm of breast; G43.909 Migraine, unspecified, not intractable, without status migrainosus; Z59.82 Transportation insecurity; R45.89 Other symptoms and signs involving emotional state; J18.9 Pneumonia, unspecified organism
CPT/HCPCS: 00123; 36415; 71275; 80053; 82805; 87040; 87637; 93005; 94640; 96361; 96365; 96367; 96368; 96375; 97162; 97530; 99285; J1650; 71045; 72170; 81003; 83605; 83735; 83880; 84484; 85025; 85379; 85610; 85730; 93010; 94664; 94668; 94760; 99232; 99238; J0131; J0456; J0696; J1790; J3490; J7512